=== PATIENT | female | born 1950 | race Caucasian/White ===

== ENCOUNTER 2020-01-31 15:30 | IRF | payer MEDICARE, OTHER, SELFPAY ==
--- NOTE | ~2020-01-31 | XR_ITS ---
EXAMINATION: XR chest 1V portable DATE: 02/10/2020 05:58 INDICATION: Pneumonia TECHNIQUE: frontal view of the chest was obtained. COMPARISON: Chest radiograph dated 02/05/2020 FINDINGS: Persistent opacities in the bilateral lower lung zones with left retrocardiac consolidation. Blunting at the costophrenic angles. No pulmonary edema or pneumothorax. Small calcified nodule in the left l ower lung zone and calcified left hilar lymph nodes consistent with old granulomatous disease. The ca rdiomediastinal silhouette is normal. Midline skin philip at the upper abdomen. IMPRESSION: 1. Unchanged opacities in the bilateral lower lung zones consistent with small bilateral pleural effu sions and associated basilar atelectasis and/or pneumonia. Reviewed, dictated and finalized at location A. PROOF DOOR MAKER IMPRESSION: 1. Unchanged opacities in the bilateral lower lung zones consistent with small bilateral pleural effusions and associated basilar atelectasis and/or pneumonia .
--- NOTE | ~2020-01-31 | XR_ITS ---
XR chest 1V portable 02/15/2020 06:17 Indication: Pneumonia. Dyspnea. Procedure: AP portable chest Comparison: 02/10/2020 and 02/05/2020 Findings: Heart size normal. Improving bibasilar airspace disease. Small residual pleural effusions. No pneumothorax. Calcified granulomas left lower lung. No acute osseous abnormality. Impression: 1: Improving bibasilar airspace disease which may represent resolving pneumonia and/or atelectasis. 2: Small pleural effusions. Reviewed, dictated and finalized at location A. BASIS Impression: 1: Improving bibasilar airspace disease which may represent resolving pneumonia and/or atelectasis. 2: Small pleural effusions.
--- NOTE | ~2020-01-31 | US_ITS ---
EXAMINATION: US arterial duplex [facility] DATE: 02/09/2020 10:16 INDICATION: [place] feet TECHNIQUE: Multiple grayscale and Doppler ultrasound images of the arteries of the bilateral lower li mbs were obtained. COMPARISON: None FINDINGS: Triphasic waveforms at the right common femoral, superficial femoral and posterior tibial and dorsali s pedis arteries and biphasic waveforms at the right profunda femoral and popliteal arteries with radha sk systolic upstrokes throughout. Triphasic waveforms at the left common femoral, superficial femoral , profunda femoral, posterior tibial and dorsalis pedis arteries and biphasic waveforms in the left p opliteal artery with brisk systolic upstrokes throughout. No significant stenosis evident on the prov ided grayscale images. Cardiac arrhythmias present. IMPRESSION: 1. No significant arterial occlusive disease with triphasic waveforms with brisk systolic upstrokes i n the posterior tibial and dorsalis pedis arteries at the bilateral lower legs. 2. Cardiac arrhythmias present. Correlate with EKG . Reviewed, dictated and finalized at location A. M PLANT OPERATOR IMPRESSION: 1. No significant arterial occlusive disease with triphasic waveforms with bris k systolic upstrokes in the posterior tibial and dorsalis pedis arteries at the bilateral lower legs. 2. Cardiac arrhythmias present. Correlate with EKG .
--- NOTE | ~2020-01-31 | NM_ITS ---
EXAMINATION: NM renal flow and function DATE: 02/12/2020 12:23 INDICATION: Acute kidney injury. TECHNIQUE: 6.34 mCi Tc-99m MAG3 was administered IV. The patient was scanned in the supine position. A posterior abdominal radionuclide angiogram was obtained. A subsequent time course of static images of the kidneys, ureters, and bladder was obtained. COMPARISON: Ultrasound 02/11/2020 FINDINGS: The posterior abdominal radionuclide angiogram and sequential static images show normal siz e, position, and morphology of the kidneys. Peak renal parenchymal uptake was 29 min in right kidney and 26 min in left kidney (normal peak 3-5 minutes), consistent with decreased renal function. The r elative early renal uptake was 50% on the right and 50% on the left (<40% is abnormal). No abnormali ties of the ureters or bladder are seen. T1/2 for clearance of activity from the right kidney and proximal collecting system could not be calc ulated. T1/2 for clearance of activity from the left kidney and proximal collecting system could not be calcu lated. IMPRESSION: 1. Symmetric decreased bilateral kidney function. Reviewed, dictated and finalized at location A. OPERATOR
--- NOTE | ~2020-01-31 | XR_ITS ---
XR chest 2V DATE: 02/05/2020 13:30 INDICATION: Fever TECHNIQUE: AP and lateral views COMPARISON: None FINDINGS: Heart size is within normal range. Is aortic calcification. No hilar or mediastinal enlarge ment. There are bilateral lower lung infiltrates and/or atelectasis and bilateral small pleural effusions. Rojelio overlie the upper abdomen to left of midline, as well as some surgical clips. Diffuse osteopenia. IMPRESSION: Bilateral lower lung infiltrate and/or atelectasis and small bilateral pleural effusions Reviewed, dictated and finalized at location A. E MACHINE OPERATOR IMPRESSION: Bilateral lower lung infiltrate and/or atelectasis and small bilate ral pleural effusions
--- NOTE | ~2020-01-31 | US_ITS ---
EXAMINATION: US renal BI EXAM DATE: 02/11/2020 17:36 INDICATION: Elevated creatinine. TECHNIQUE: Multiple grayscale and Doppler images of the kidneys were obtained (by a technologist who performed the scan) and subsequently reviewed. There is no prior study for comparison. FINDINGS: Right kidney: There is normal contour and increased echogenicity. It measures 12.5 x 5.4 x 6.4 centi meters. There are no focal renal lesions identified. There is no hydronephrosis. Left kidney: There is normal contour and increased echogenicity. It measures 9.2 x 4.4 x 4.3 centime ters. There is an anechoic lesion measuring 2.8 cm maximally, consistent with cyst. There is no hyd ronephrosis. Bladder unremarkable. IMPRESSION: 1. Echogenic kidneys consistent with medical renal disease. 2. No hydronephrosis. Reviewed, dictated and finalized at location A. ER TENDER HELPER
--- NOTE | 2020-01-31 15:58 | ADMGEN ---
This patient, Bhakti Jones, [facility]. Patient/family oriented to hospital policies and general routines including ID bracelet, bed and alarms, visiting hours, pain management, procedures, bathroom and other care routines, personal items, smoking policy, room service/diet, and visiting hours. Information on how to activate the Rapid Response Team has been discussed. Patient/Family are encouraged to report perceived risks to care and to ask questions if they do not understand what they are told or what they should do. was transported via [facility] ambulance, on 1.5L O2. ems stated V/S stable, report was not called prior to arrival. this nurse called hospital for report prior to removing patient from stretcher. Patient is alert and oriented.
[2020-01-31 16:41] VITALS: BP 122/71; PULSE 84; RESP 20; TEMP 37.4; O2SAT 96; BMI 22.4
--- NOTE | 2020-01-31 17:54 | PC.NURSE ---
CALLED DR. MARTINEZ AND LET HIM KNOW NEW PATIENT ARRIVAL, HE OK'D TO D/C JOSE AND GIVE MELATONIN 8MG EVERY HS FOR SLEEP O/W CONTINUE ALL ORDERS
[2020-01-31 18:00] VITALS: PULSE 84; RESP 20; O2SAT 96
[2020-01-31 20:00] VITALS: PULSE 98; RESP 18; O2SAT 93
[2020-01-31 21:47] VITALS: PULSE 68
[2020-01-31] MEDS: METOPROLOL TARTRATE 25 MG TABLET PO (21:47)
[2020-01-31] MEDS: SIMVASTATIN 10 MG TABLET PO (21:47)
[2020-01-31] MEDS: oxyCODONE HCL (*CRX) 5 MG TAB IR PO (21:54)
[2020-01-31] MEDS: MELATONIN 5 MG TABLET PO (21:54)
[2020-01-31] MEDS: MELATONIN 3 MG TABLET PO (21:54)
[2020-01-31 22:00] VITALS: BP 129/55; PULSE 98; RESP 18; TEMP 37.7; O2SAT 93
[2020-01-31] MEDS: DIPHENOXYLATE/ATROPINE (*CRX) 2.5 MG TABLET 2.5 TABLET PO (23:21)
[2020-01-31] MEDS: PSYLLIUM SUGAR FREE POWDER PACKET 1 PACKET PO (23:26)
[2020-02-01 04:48] VITALS: BP 125/55; PULSE 91; RESP 18; TEMP 37.3; O2SAT 93
[2020-02-01 05:18] LABS: Hematocrit 34.3 % (37.0-47.0); Hemoglobin 11.2 g/dL (12.0-15.0); Mean Corpuscular HGB Conc 32.7 g/dl (32-36); Mean Corpuscular Hemoglobin 28.6 pg (26-34); Mean Corpuscular Volume 87.7 fl (80-100); Red Blood Count 3.91 M/mm3 (4.2-5.4); Red Cell Distribution Width 15.8 % (11.5-14.5); White Blood Count 11.9 K/mm3 (4.5-10.0)
[2020-02-01 05:32] LABS: Anion Gap 1 mmol/L (8-16); Blood Urea Nitrogen 17 mg/dL (7-17); Calcium 7.2 mg/dL (8.4-10.2); Carbon Dioxide 27 mmol/L (22-30); Chloride 105 mmol/L (98-107); Estimated CRCL calculation 77 ml/min; Estimated Glomerular Filt Rate > 60; Glucose 115 mg/dL (65-105); Potassium 3.7 mmol/L (3.4-5.0); Sodium 133 mmol/L (137-145)
[2020-02-01 05:58] LABS: Band Neutrophils Percent 3 % (0-6); Eosinophils Absolute Manual 0.11 K/mm3 (0.02-0.5); Eosinophils Percent Manual 1 % (0-4); Large Platelets Present; Lymphocytes Absolute Manual 2.49 K/mm3 (1.1-4.5); Monocytes Absolute Manual 1.42 K/mm3 (0.1-0.90); Monocytes Percent Manual 12 % (3-9); Neutrophils Absolute Manual 7.85 K/mm3 (1.7-7.2); Neutrophils Percent Manual 63 % (46-73); Nucleated Red Blood Cells 3 %; Platelet Clumps Present; Platelet Estimate Adequate (Adequate); Total Cells Counted 100
[2020-02-01 05:59] LABS: Hypochromasia 1+ (NORMAL); Ovalocytes 1+ (NORMAL)
[2020-02-01] MEDS: DIPHENOXYLATE/ATROPINE (*CRX) 2.5 MG TABLET 1 TABLET PO ×4 (06:16→23:59)
[2020-02-01 09:38] VITALS: PULSE 91
[2020-02-01] MEDS: METOPROLOL TARTRATE 25 MG TABLET PO ×2 (09:38→20:13)
[2020-02-01] MEDS: amLODIPine BESYLATE 5 MG TABLET PO (09:39)
[2020-02-01] MEDS: ESCITALOPRAM OXALATE 10 MG TABLET PO (09:39)
[2020-02-01] MEDS: CLOPIDOGREL BISULFATE 75 MG TABLET PO (09:39)
[2020-02-01] MEDS: FLUTICASONE PROPIONATE 0.05% NA SPR 16 GM BTL (*BKC) 2 SPRAY NASAL (09:39)
[2020-02-01] MEDS: PSYLLIUM SUGAR FREE POWDER PACKET 1 PACKET PO ×2 (09:40→20:14)
[2020-02-01] MEDS: LOPERAMIDE HCL 2 MG CAPSULE 4 MG PO ×3 (09:43→17:29)
--- NOTE | 2020-02-01 11:50 | PCSTNOTE ---
Pt was seen by ST to assess communication & cognitive-linguistic function. Overall, upon completion of evaluations, pt was found to present with functional speech/language & cognitive skills. Pt was also observed drinking liquids via straw during the evaluation without any overt s/s of aspiration. Given the normal/functional evaluation outcomes, no further speech therapy is recommended at this time.
--- NOTE | 2020-02-01 12:49 | WPDREHABHP ---
H&P: HPI History of Present Illness Date/Time: 02/01/20 12:49 HISTORY OF PRESENT ILLNESS: The patient's primary rehab impairment category is Cardiac The etiologic diagnosis is abdominal aortic aneurysm I saw this patient [id number] on February 01, 2020 at 11:30 a.m. The patient is a 69 years old right-handed female with a past medical history of hypertension, hyperlipidemia, peripheral artery disease, irritable bowel syndrome, and depression who presented to a local hospital on January 22, 2020 via EMS with severe bilateral lumbar back pain, radiating to her abdomen with abrupt onset around 3:00 a.m.. The patient was transferred to [facility] via helicopter after CTA demonstrated are ruptured abdominal aortic aneurysm with [id number] read 2 peritoneal hematoma. Patient was given 1unit of packed RBCs and 2L of fluids and 2L of fluid. The patient was taken emergently to the operating room for an open aortic aneurysm repair. MTP activated and the patient received a total of 15units of packed RBCs, 5units of platelets, 12units of fresh frozen plasma, and 4units of cryo case. 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 There was also poor distal perfusion requiring bilateral eye iliac stents. The patient's abdomen was packed and temporarily closed she was admitted to ICU with an open abdomen with abthera vac, intubated and sedated, and an insulin drops. Of note within an hour of being in ICU the patient had a blood bowel movement and 1L of Sanguinous VAC output. On January 24, 2020 the patient returned to the OR for re- exploratory laparotomy and closer with Dr.deacon Rodriguez. Her wound VAC was removed on January 27, 2020. During her hospitalization the patient has experience acute postoperative pain, acute blood loss anemia, hemorrhagic shock, elevated lactate, hypertension, acute respiratory failure, GI bleed, hypocalcemia, acute kidney injury, and leukocytosis. The patient denies pain currently and does have DR and oral analgesics, the patient is currently hemodynamically stable, hemorrhagic shock, elevated lactate, acute kidney injury, and acute respiratory failure have all resolved. The patient's hypertension is controlled and there have been no more issues with a GI bleed. Leukocytosis was likely reactive. Her hypocalcemia is being monitored and repleted as necessary. Her drain was removed on January 30, 2020. She will discharge to rehab on subcutaneous heparin for DVT prophylaxis and will discharge upon discharge from rehab. COVID: The patient has not traveled outside the [place] or had contact with someone who is ill that is travel outside the [place] in the past 21 days. The patient has not traveled to an area of the [place] or had contact with someone who is ill that has traveled outside the [place] in the past 21 days. The patient has not traveled to an area of the [place] there is experiencing known transmission of the Coronavirus and has not had close personal contact with anyone that has. The patient does not have a fever Therapy was initiated at the acute care facility and the patient transferred to us from [facility] on January 31, 2020 FALLS OR SURGERIES: the patient has had a major surgery in the last 100 days( January 22, 2020 open abdominal aortic aneurysm repair, January 24, 2020 exploratory laparotomy) PAST MEDICAL HISTORY: abdominal aortic aneurysm, colon polyp, hyperlipidemia, hypertension, peripheral artery disease, irritable bowel syndrome, depression. PAST SURGICAL HISTORY: Colonoscopy SOCIAL HISTORY: the patient lives with her , Kelvin, in a 1 level home with 2 steps to enter. The patient was completely independent prior to with no assistive device. The patient's was present for interview and is able to assist patient following rehabilitation if necessary. . Former smoker. No alcohol or drug use. FAMILY HISTORY: Hypertension PRIOR LEVEL OF FUNC
[2020-02-01 14:00] VITALS: BP 113/55; PULSE 88; RESP 18; TEMP 37; O2SAT 97
[2020-02-01 16:54] VITALS: O2SAT 97
[2020-02-01] MEDS: MECLIZINE HCL 25 MG TABLET PO (17:29)
[2020-02-01] MEDS: MELATONIN 5 MG TABLET PO (20:12)
[2020-02-01 20:13] VITALS: PULSE 95
[2020-02-01] MEDS: SIMVASTATIN 10 MG TABLET PO (20:13)
[2020-02-01] MEDS: MELATONIN 3 MG TABLET PO (20:13)
[2020-02-01 20:59] VITALS: BP 130/49; PULSE 94; RESP 20; TEMP 37.7; O2SAT 99
[2020-02-01] MEDS: ACETAMINOPHEN 500 MG TABLET 1000 MG PO (23:59)
[2020-02-02] VITALS (10 sets, daily range): BP systolic 112–125; BP diastolic 49–64; PULSE 80–94; RESP 18–20; TEMP 36.8–38.8; O2SAT 90–94; BMI 22.4
[2020-02-02] MEDS: DIPHENOXYLATE/ATROPINE (*CRX) 2.5 MG TABLET 1 TABLET PO ×3 (06:35→17:34)
[2020-02-02] MEDS: PSYLLIUM SUGAR FREE POWDER PACKET 1 PACKET PO ×2 (07:46→21:24)
[2020-02-02] MEDS: ESCITALOPRAM OXALATE 10 MG TABLET PO (09:54)
[2020-02-02] MEDS: amLODIPine BESYLATE 5 MG TABLET PO (09:54)
[2020-02-02] MEDS: METOPROLOL TARTRATE 25 MG TABLET PO ×2 (09:54→21:21)
[2020-02-02] MEDS: MECLIZINE HCL 25 MG TABLET PO ×3 (09:54→17:34)
[2020-02-02] MEDS: CLOPIDOGREL BISULFATE 75 MG TABLET PO (09:54)
[2020-02-02] MEDS: FLUTICASONE PROPIONATE 0.05% NA SPR 16 GM BTL (*BKC) 2 SPRAY NASAL (09:55)
[2020-02-02] MEDS: LOPERAMIDE HCL 2 MG CAPSULE 4 MG PO ×3 (10:37→17:34)
--- NOTE | 2020-02-02 13:37 | WPDNEURORHBP ---
Subjective Date/time seen: 02/02/20 13:37 69 years old with history of abdominal aortic aneurysm rupture in addition to ongoing comorbid condition of 1. Hypertension 2. Hyperlipidemia 3. Peripheral arterial disease 4. Irritable bowel syndrome 5. Depression has been involved in physical therapy and occupational therapy on today's visit she has no specific complaints feels somewhat weak but resting fairly well on 26/06 her WBC 11.9 with hemoglobin 11.2 N electrolytes normal. Her WBCs at other places were 14.3 now coming down to 11.9 sodium has come down from 137 to 133 but potassium and up to 3.8 still her calcium is 7.6 Review of Systems Review of Systems: All systems reviewed & are unremarkable except as noted in HPI and below Functional Status Ambulation Ability Ambulation Assistive Devices: Walker, Wheeled Exam Narrative: Exam Narrative: his awake alert operative head normocephalic his speech nor dysphasic no dysarthric heart regular lungs clear abdomen is soft nontender wound clear and neuro examination unchanged Objective Data Vital Signs Vital Signs: Vital Signs - 24 hr 02/01/20 14:00 02/01/20 16:54 02/01/20 20:13 Temperature 37.0 C Pulse Rate 88 95 Respiratory Rate 18 Blood Pressure 113/55 L Pulse Oximetry 97 97 02/01/20 20:59 02/02/20 00:04 02/02/20 00:49 Temperature 37.7 C H 38.3 C H 38.8 C H Pulse Rate 94 Respiratory Rate 20 Blood Pressure 130/49 L Pulse Oximetry 99 02/02/20 01:20 02/02/20 05:41 02/02/20 09:54 Temperature 37.6 C 36.8 C Pulse Rate 82 82 Respiratory Rate 18 Blood Pressure 119/49 L Pulse Oximetry 94 02/02/20 10:13 Temperature 36.9 C Pulse Rate 90 Respiratory Rate 18 Blood Pressure 118/64 Pulse Oximetry 93 Intake/Output Intake/Output: Intake & Output 01/30/20 01/31/20 02/01/20 02/02/20 23:59 23:59 23:59 23:59 Intake Total 220 480 240 Balance 220 480 240 Meds/Results Medications: Active Medications Generic Name Dose Route Start Last Admin Trade Name Freq PRN Reason Stop Dose Admin Acetaminophen 1,000 mg 01/31/20 16:47 02/01/20 23:59 Acetaminophen 500 Mg Tablet PO 1,000 mg Q6H PRN Administration Pain (Scale Score 4-6) Amlodipine Besylate 5 mg 02/01/20 09:00 02/02/20 09:54 Amlodipine Besylate 5 Mg Tablet PO 5 mg DAILY AMOR Administration Clopidogrel Bisulfate 75 mg 02/01/20 09:00 02/02/20 09:54 Clopidogrel Bisulfate 75 Mg Tablet PO 75 mg DAILY AMOR Administration Diphenoxylate HCl/Atropine 1 tablet 02/01/20 06:00 02/02/20 12:06 Diphenoxylate/Atropine (*Crx) 2.5 Mg Tablet PO 1 tablet Q6HR AMOR Administration Escitalopram Oxalate 10 mg 02/01/20 09:00 02/02/20 09:54 Escitalopram Oxalate 10 Mg Tablet PO 10 mg DAILY AMOR Administration Fluticasone Propionate 2 spray 02/01/20 09:00 02/02/20 09:55 Fluticasone Propionate 0.05% Na Spr 16 Gm Btl (*Bkc) NASAL 2 spray DAILY AMOR Administration Loperamide HCl 4 mg 01/31/20 17:00 02/02/20 12:06 Loperamide Hcl 2 Mg Capsule PO 4 mg TID AMOR Administration Meclizine HCl 25 mg 02/01/20 17:00 02/02/20 12:06 Meclizine Hcl 25 Mg Tablet PO 25 mg TID AMOR Administration Melatonin 5 mg 01/31/20 21:00 02/01/20 20:12 Melatonin 5 Mg Tablet PO 5 mg HS AMOR Administration Melatonin 3 mg 01/31/20 21:00 02/01/20 20:13 Melatonin 3 Mg Tablet PO 3 mg HS AMOR Administration Metoprolol Tartrate 25 mg 01/31/20 21:00 02/02/20 09:54 Metoprolol Tartrate 25 Mg Tablet PO 25 mg Q12HR AMOR Administration Oxycodone HCl 5 mg 01/31/20 16:47 01/31/20 21:54 Oxycodone Hcl (*Crx) 5 Mg Tab Ir PO 5 mg Q4H PRN Administration Pain (Scale Score 7-10) Psyllium Hydrophilic Mucilloid 1 packet 01/31/20 21:00 02/02/20 07:46 Psyllium Sugar Free Powder Packet PO 1 packet Q12HR AMOR Administration Simvastatin 10 mg 01/31/20 21:00 02/01/20 20:13 Simvastatin 10 Mg Tablet PO 10 mg HS AMOR
--- NOTE | 2020-02-02 17:25 | RPD ---
INDIVIDUALIZED PLAN OF CARE FOR Bhakti Jones Brief Synthesis of Pre-Admission Screen, Post-Admission Evaluation and Therapy Evaluations: The patient presents to rehab with an abdominal aortic aneurysm. Comorbidities include: Acute respiratory failure, acute kidney injury, anemia, depression, GI bleed, HLD, HTN, s/p splenectomy, IBS, incontinence, lactic acidosis, leukocytosis hypocalcemia, PAD, weakness. The patient requires physician services for medical oversight, management of post op complications in the setting of comorbidities, and pain management. The patient requires nursing services for anticoagulation therapy, DVT prophylaxis, infection protection, medication management and education, pressure relief, and wound care. Deficits include:ADLs, Balance, Endurance, Mobility, Pain Management, ROM, Safety, Strength, Transfers Credit Support Counselor/Case Management for: Discharge Planning and Patient/Family Counseling Physical Therapy: 5 days per week for 90 minutes per day. Treatments may include: Therapeutic Exercise, Gait Training, Neuromuscular Re-education, Transfer Training, Community Reintegration, Bed Mobility, Patient/Family Education, Wheelchair Mobility Group Therapy/Concurrent Therapy Rationales: -Improve attention span during functional activities in a distracted environment. -Enhance problem solving and/or adequate judgment skills during functional activities in a distracted environment. -Promote increased safety awareness in a distracted environment to reduce fall risk with functional tasks, transfers, and ambulation to allow a more safe, self-sufficient return to the home environment. -Improve dynamic balance skills to promote safety and independence with functional activities in a distracted environment for maximum gain. Occupational Therapy: 5 days per week for 90 minutes per day. Treatments may include: Therapeutic Exercise, Therapeutic Activity, Cognitive Training, Self-Care Transfer Training, Community Reintegration, Home Management, Patient/Family Education, Wheelchair Mobility Training, Energy Conservation Training Group Therapy/Concurrent Therapy Rationales: -Allow therapist to observe and teach generalization and carry-over of skills learned in individual therapy. -Enhance problem solving and sequencing skills during therapeutic activities in a distracted environment. -Promote increased safety awareness in a realistic setting to reduce fall risk with functional tasks due to visual and verbal distractions. -Increase functional level with ADLs, ADL transfers and use of adaptive equipment through therapeutic activities with others while promoting safety to allow a more safe, self-sufficient return home. Medical Prognosis: Good Anticipated Length of Stay: 12 days Rehab Goals: Eating Goal: 06-Independent Oral Hygiene Goal: 06-Independent Toileting Hygiene Goal: 06-Independent Shower/Bathe Self Goal: 06-Independent Upper Body Dressing Goal: 06-Independent Lower Body Dressing Goal: 06-Independent Putting On/Taking Off Footwear Goal: 06-Independent Rolling Left and Right Goal: 06-Independent Sit to Lying Goal: 06-Independent Lying to Sitting on Side of Bed Goal: 06-Independent Sit to Stand Goal: 06-Independent Chair/[id number] Transfer Goal: 06-Independent Toilet Transfer Goal: 06-Independent Car Transfer Goal: 06-Independent Walk 10' Goal: 06-Independent Walk 50' with Two Turns Goal: 06-Independent Walk 150' Goal: 06-Independent Walk 10' on Uneven Surface Goal: 06-Independent 1 Step (Curb) Goal: 06-Independent 4 Steps Goal: 06-Independent 12 Steps Goal Score: 06-Independent Picking Up Object Goal: 06-Independent Wheel 50' with Two Turns Score: 06-Independent Wheel 150' Goal: 06-Independent Anticipated discharge destination: Home
[2020-02-02] MEDS: SIMVASTATIN 10 MG TABLET PO (21:21)
[2020-02-02] MEDS: MELATONIN 3 MG TABLET PO (21:24)
[2020-02-02] MEDS: MELATONIN 5 MG TABLET PO (21:24)
[2020-02-03] VITALS (9 sets, daily range): BP systolic 95–132; BP diastolic 46–69; PULSE 82–114; RESP 17–20; TEMP 36.6–38; O2SAT 91–94
[2020-02-03] MEDS: DIPHENOXYLATE/ATROPINE (*CRX) 2.5 MG TABLET 1 TABLET PO ×4 (00:02→17:35)
[2020-02-03] MEDS: PSYLLIUM SUGAR FREE POWDER PACKET 1 PACKET PO ×2 (07:33→21:04)
[2020-02-03] MEDS: CLOPIDOGREL BISULFATE 75 MG TABLET PO (09:52)
[2020-02-03] MEDS: METOPROLOL TARTRATE 25 MG TABLET PO ×2 (09:52→21:04)
[2020-02-03] MEDS: MECLIZINE HCL 25 MG TABLET PO ×3 (09:53→17:35)
[2020-02-03] MEDS: amLODIPine BESYLATE 5 MG TABLET PO (09:54)
[2020-02-03] MEDS: ESCITALOPRAM OXALATE 10 MG TABLET PO (09:54)
[2020-02-03] MEDS: FLUTICASONE PROPIONATE 0.05% NA SPR 16 GM BTL (*BKC) 2 SPRAY NASAL (09:54)
[2020-02-03] MEDS: ACETAMINOPHEN 500 MG TABLET 1000 MG PO (09:58)
[2020-02-03] MEDS: LOPERAMIDE HCL 2 MG CAPSULE 4 MG PO ×3 (09:59→17:35)
[2020-02-03 14:46] LABS: Basophils Absolute Auto 0.1 K/mm3 (0.0-0.1); Basophils Percent Auto 0.4 % (0.2-1.2); Eosinophils Absolute Auto 0.1 K/mm3 (0-0.3); Eosinophils Percent Auto 0.6 % (0-4.4); Hematocrit 35.3 % (37.0-47.0); Hemoglobin 11.8 g/dL (12.0-15.0); Immature Granulocyte Absolute 0.53 K/mm3 (0.00-0.031); Immature Granulocyte Percent A 4.6 % (0-0.5); Lymphocytes Absolute Auto 0.79 K/mm3 (0.9-3.2); Lymphocytes Percent Auto 6.9 % (18.3-44.2); Mean Corpuscular HGB Conc 33.4 g/dl (32-36); Mean Corpuscular Hemoglobin 29.4 pg (26-34); Mean Platelet Volume 9.9 fl (7.4-10.4); Monocytes Absolute Auto 1.1 K/mm3 (0.1-0.6); Monocytes Percent Auto 9.8 % (2.6-8.5); Neutrophils Percent Auto 77.7 % (45.5-73.1); Nucleated Red Blood Cells Absolute Auto 0.1 K/mm3 (0.0-0.012); Nucleated Red Blood Cells Perc 0.5 % (0.0-0.2); Platelet Count Result 606 k/mm3 (150-375); Red Blood Count 4.01 M/mm3 (4.2-5.4); Red Cell Distribution Width 15.6 % (11.5-14.5); White Blood Count 11.5 K/mm3 (4.5-10.0)
[2020-02-03 14:57] LABS: Potassium 3.5 mmol/L (3.4-5.0)
[2020-02-03 14:59] LABS: Alanine Aminotransferase 21 U/L (4-35); Albumin Level 2.2 g/dL (3.5-5.1); Alkaline Phosphatase 138 U/L (38-126); Anion Gap 4 mmol/L (8-16); Aspartate Amino Transferase 33 U/L (14-36); Bilirubin,Total 1.2 mg/dL (0.2-1.3); Blood Urea Nitrogen 15 mg/dL (7-17); Calcium 7.6 mg/dL (8.4-10.2); Carbon Dioxide 26 mmol/L (22-30); Chloride 101 mmol/L (98-107); Estimated CRCL calculation 66 ml/min; Estimated Glomerular Filt Rate > 60; Glucose 115 mg/dL (65-105); Sodium 131 mmol/L (137-145)
[2020-02-03] MEDS: MELATONIN 3 MG TABLET PO (21:04)
[2020-02-03] MEDS: MELATONIN 5 MG TABLET PO (21:04)
[2020-02-03] MEDS: SIMVASTATIN 10 MG TABLET PO (21:05)
[2020-02-04] MEDS: DIPHENOXYLATE/ATROPINE (*CRX) 2.5 MG TABLET 1 TABLET PO ×4 (00:12→17:17)
[2020-02-04 06:00] VITALS: BP 134/60; PULSE 99; RESP 18; TEMP 36.6; O2SAT 91
[2020-02-04] MEDS: PSYLLIUM SUGAR FREE POWDER PACKET 1 PACKET PO ×2 (06:06→20:27)
[2020-02-04] MEDS: ESCITALOPRAM OXALATE 10 MG TABLET PO (09:36)
[2020-02-04] MEDS: CLOPIDOGREL BISULFATE 75 MG TABLET PO (09:36)
[2020-02-04] MEDS: METOPROLOL TARTRATE 25 MG TABLET PO ×2 (09:37→20:27)
[2020-02-04] MEDS: MECLIZINE HCL 25 MG TABLET PO ×3 (09:37→17:17)
[2020-02-04] MEDS: amLODIPine BESYLATE 5 MG TABLET PO (09:38)
[2020-02-04] MEDS: FLUTICASONE PROPIONATE 0.05% NA SPR 16 GM BTL (*BKC) 2 SPRAY NASAL (09:38)
--- NOTE | 2020-02-04 09:49 | WPDNEURORHBP ---
Subjective Date/time seen: 02/04/20 09:49 69 years old with history of abdominal aortic aneurysm rupture and surgery in addition to ongoing comorbid conditions her temp today is 100.8 urine cultures pending she is not eating very well will talk to the family and start her on Megace she is already covered for the depression with the site a low prime 10 mg daily Review of Systems Review of Systems: All systems reviewed & are unremarkable except as noted in HPI and below Functional Status Ambulation Ability Ambulation Assistive Devices: Walker, Wheeled Exam Narrative: Exam Narrative: awake alert cooperative communicative has no specific complaints but obviously as mentioned before she is not eating very well the cranial examination is normal motor examination revealed no focal motor deficit heart regular lungs clear with no crepitations abdomen is soft nontender Objective Data Vital Signs Vital Signs: Vital Signs - 24 hr 02/03/20 09:52 02/03/20 10:00 02/03/20 13:45 Temperature 38.0 C H 36.9 C Pulse Rate 98 114 H 85 Respiratory Rate 18 Blood Pressure 127/69 95/46 L Pulse Oximetry 91 92 02/03/20 14:00 02/03/20 15:38 02/03/20 21:04 Temperature 36.6 C Pulse Rate 82 84 84 Respiratory Rate 17 Blood Pressure 96/52 L Pulse Oximetry 92 94 02/03/20 21:18 02/04/20 06:00 Temperature 37.2 C 36.6 C Pulse Rate 99 99 Respiratory Rate 20 18 Blood Pressure 127/50 L 134/60 Pulse Oximetry 91 91 Intake/Output Intake/Output: Intake & Output 02/01/20 02/02/20 02/03/20 02/04/20 23:59 23:59 23:59 23:59 Intake Total 480 360 100 240 Balance 480 360 100 240 Meds/Results Medications: Active Medications Generic Name Dose Route Start Last Admin Trade Name Freq PRN Reason Stop Dose Admin Acetaminophen 1,000 mg 01/31/20 16:47 02/03/20 09:58 Acetaminophen 500 Mg Tablet PO 1,000 mg Q6H PRN Administration Pain (Scale Score 4-6) Amlodipine Besylate 5 mg 02/01/20 09:00 02/04/20 09:38 Amlodipine Besylate 5 Mg Tablet PO 5 mg DAILY AMOR Administration Clopidogrel Bisulfate 75 mg 02/01/20 09:00 02/04/20 09:36 Clopidogrel Bisulfate 75 Mg Tablet PO 75 mg DAILY AMOR Administration Diphenoxylate HCl/Atropine 1 tablet 02/01/20 06:00 02/04/20 06:06 Diphenoxylate/Atropine (*Crx) 2.5 Mg Tablet PO 1 tablet Q6HR AMOR Administration Escitalopram Oxalate 10 mg 02/01/20 09:00 02/04/20 09:36 Escitalopram Oxalate 10 Mg Tablet PO 10 mg DAILY AMOR Administration Fluticasone Propionate 2 spray 02/01/20 09:00 02/04/20 09:38 Fluticasone Propionate 0.05% Na Spr 16 Gm Btl (*Bkc) NASAL 2 spray DAILY AMOR Administration Loperamide HCl 4 mg 01/31/20 17:00 02/03/20 17:35 Loperamide Hcl 2 Mg Capsule PO 4 mg TID AMOR Administration Meclizine HCl 25 mg 02/01/20 17:00 02/04/20 09:37 Meclizine Hcl 25 Mg Tablet PO 25 mg TID AMOR Administration Melatonin 5 mg 01/31/20 21:00 02/03/20 21:04 Melatonin 5 Mg Tablet PO 5 mg HS AMOR Administration Melatonin 3 mg 01/31/20 21:00 02/03/20 21:04 Melatonin 3 Mg Tablet PO 3 mg HS AMOR Administration Metoprolol Tartrate 25 mg 01/31/20 21:00 02/04/20 09:37 Metoprolol Tartrate 25 Mg Tablet PO 25 mg Q12HR AMOR Administration Oxycodone HCl 5 mg 01/31/20 16:47 01/31/20 21:54 Oxycodone Hcl (*Crx) 5 Mg Tab Ir PO 5 mg Q4H PRN Administration Pain (Scale Score 7-10) Psyllium Hydrophilic Mucilloid 1 packet 01/31/20 21:00 02/04/20 06:06 Psyllium Sugar Free Powder Packet PO 1 packet Q12HR AMOR Administration Simvastatin 10 mg 01/31/20 21:00 02/03/20 21:05 Simvastatin 10 Mg Tablet PO 10 mg HS AMOR Administration Labs Labs: Laboratory Results - last 24 hr 02/03/20 02/03/20 14:37 14:37 WBC 11.5 H RBC 4.01 L Hgb 11.8 L Hct 35.3 L MCV 88.0 MCH 29.4 MCHC 33.4 RDW 15.6 H Plt Count 606 H MPV 9.9 Immature Gran % (Auto) 4.6 H Neut
[2020-02-04] MEDS: LOPERAMIDE HCL 2 MG CAPSULE 4 MG PO ×3 (09:51→17:17)
--- NOTE | 2020-02-04 13:09 | PCPTNOTE ---
Bhakti Jones was evaluated for a wheeled walker on 02/04/2020 by this physical therapist. The wheeled walker will resolve patient's mobility limitations and will be used for ADL's within the home. The patient can safely use the wheeled walker. ?The wheeled walker will resolve the patient?s mobility deficits, including decreased balance, strength, and endurance.
--- NOTE | 2020-02-04 13:55 | PCPTNOTE ---
Attempted PT treatment this afternoon. Pt unable to participate secondary to lethargy, and reports of pain. RN notified and patient returned to supine in bed. Cindy Buckner DPT
[2020-02-04 14:00] VITALS: BP 122/59; PULSE 100; RESP 20; TEMP 38.3; O2SAT 91
[2020-02-04 16:09] LABS: Add Urine Microscopic? YES; Appearance Urine Clear (Clear); Bilirubin Urine Negative (Negative); Blood Urine 2+ (Negative); Color Urine Amber (Yellow); Glucose Urine UA Negative (Negative); Ketones Urine 1+ mg/dL (Negative); Leukocyte Esterase Ur Negative LEU/UL (NEGATIVE); Mucus Urine Rare /lpf; Nitrate Urine Negative (Negative); Protein Urine 2+ mg/dL (Negative); RBC Urine 21-50 /hpf (0-2); Squamous Epithelial Cell Urine Few /hpf (Few)
[2020-02-04 20:10] VITALS: BP 109/49; PULSE 88; RESP 16; TEMP 37.5; O2SAT 92
[2020-02-04] MEDS: MELATONIN 3 MG TABLET PO (20:26)
[2020-02-04] MEDS: MELATONIN 5 MG TABLET PO (20:26)
[2020-02-04 20:27] VITALS: PULSE 88
[2020-02-04] MEDS: SIMVASTATIN 10 MG TABLET PO (20:27)
[2020-02-04 22:00] VITALS: BP 106/53; PULSE 79; RESP 20; TEMP 37.2; O2SAT 96
[2020-02-05] MEDS: DIPHENOXYLATE/ATROPINE (*CRX) 2.5 MG TABLET 1 TABLET PO ×5 (00:26→22:58)
[2020-02-05 06:00] VITALS: BP 132/53; PULSE 97; RESP 20; TEMP 37.4; O2SAT 98
[2020-02-05] MEDS: amLODIPine BESYLATE 5 MG TABLET PO (10:26)
[2020-02-05] MEDS: FLUTICASONE PROPIONATE 0.05% NA SPR 16 GM BTL (*BKC) 2 SPRAY NASAL (10:27)
[2020-02-05] MEDS: CLOPIDOGREL BISULFATE 75 MG TABLET PO (10:27)
[2020-02-05] MEDS: ESCITALOPRAM OXALATE 10 MG TABLET PO (10:27)
[2020-02-05] MEDS: ACETAMINOPHEN 500 MG TABLET 1000 MG PO (10:28)
[2020-02-05] MEDS: MECLIZINE HCL 25 MG TABLET PO ×3 (10:30→16:59)
[2020-02-05] MEDS: METOPROLOL TARTRATE 25 MG TABLET PO ×2 (10:30→22:52)
[2020-02-05] MEDS: LOPERAMIDE HCL 2 MG CAPSULE 4 MG PO ×3 (10:43→16:59)
[2020-02-05] MEDS: PSYLLIUM SUGAR FREE POWDER PACKET 1 PACKET PO ×2 (10:44→22:49)
--- NOTE | 2020-02-05 11:42 | WPDNEURORHBP ---
Subjective Date/time seen: 02/05/20 11:42 ladnikki has been admitted to rehab floor of [facility] with the history of abdominal aortic aneurysmal rupture and surgery. Yesterday she was not feeling well but today she is definitely better her case was discussed in the family meeting with all the family members available on telephone. The discharge planning is on Tuesday with instruction to have the home health physical therapy occupational therapy and nurses visit in addition she will need a wheeled walker. Review of Systems Review of Systems: All systems reviewed & are unremarkable except as noted in HPI and below Functional Status Ambulation Ability Ambulation Assistive Devices: Walker, Wheeled Exam Narrative: Exam Narrative: On examination she is awake alert cooperative in no obvious acute distress. His speech nor dysphasic no dysarthric nor dysphonic. Ear nose throat examination normal with normal and moist mucous membranes no rhinorrhea. Neck is supple. Heart regular. Lungs clear. Abdomen is soft nontender and normal bowel sounds. Neurological examination revealed no focal neurological deficit. Objective Data Vital Signs Vital Signs: Vital Signs - 24 hr 02/04/20 14:00 02/04/20 20:10 02/04/20 20:27 Temperature 38.3 C H 37.5 C Pulse Rate 100 88 88 Respiratory Rate 20 16 Blood Pressure 122/59 L 109/49 L Pulse Oximetry 91 92 02/04/20 22:00 02/05/20 06:00 Temperature 37.2 C 37.4 C Pulse Rate 79 97 Respiratory Rate 20 20 Blood Pressure 106/53 L 132/53 L Pulse Oximetry 96 98 Intake/Output Intake/Output: Intake & Output 02/02/20 02/03/20 02/04/20 02/05/20 23:59 23:59 23:59 23:59 Intake Total 360 100 480 0 Balance 360 100 480 0 Meds/Results Medications: Active Medications Generic Name Dose Route Start Last Admin Trade Name Freq PRN Reason Stop Dose Admin Acetaminophen 1,000 mg 01/31/20 16:47 02/05/20 10:28 Acetaminophen 500 Mg Tablet PO 1,000 mg Q6H PRN Administration Pain (Scale Score 4-6) Amlodipine Besylate 5 mg 02/01/20 09:00 02/05/20 10:26 Amlodipine Besylate 5 Mg Tablet PO 5 mg DAILY AMOR Administration Clopidogrel Bisulfate 75 mg 02/01/20 09:00 02/05/20 10:27 Clopidogrel Bisulfate 75 Mg Tablet PO 75 mg DAILY AMOR Administration Diphenoxylate HCl/Atropine 1 tablet 02/01/20 06:00 02/05/20 06:19 Diphenoxylate/Atropine (*Crx) 2.5 Mg Tablet PO 1 tablet Q6HR AMOR Administration Escitalopram Oxalate 10 mg 02/01/20 09:00 02/05/20 10:27 Escitalopram Oxalate 10 Mg Tablet PO 10 mg DAILY AMOR Administration Fluticasone Propionate 2 spray 02/01/20 09:00 02/05/20 10:27 Fluticasone Propionate 0.05% Na Spr 16 Gm Btl (*Bkc) NASAL 2 spray DAILY AMOR Administration Loperamide HCl 4 mg 01/31/20 17:00 02/05/20 10:43 Loperamide Hcl 2 Mg Capsule PO 4 mg TID AMOR Administration Meclizine HCl 25 mg 02/01/20 17:00 02/05/20 10:30 Meclizine Hcl 25 Mg Tablet PO 25 mg TID AMOR Administration Melatonin 5 mg 01/31/20 21:00 02/04/20 20:26 Melatonin 5 Mg Tablet PO 5 mg HS AMOR Administration Melatonin 3 mg 01/31/20 21:00 02/04/20 20:26 Melatonin 3 Mg Tablet PO 3 mg HS AMOR Administration Metoprolol Tartrate 25 mg 01/31/20 21:00 02/05/20 10:30 Metoprolol Tartrate 25 Mg Tablet PO 25 mg Q12HR AMOR Administration Oxycodone HCl 5 mg 01/31/20 16:47 01/31/20 21:54 Oxycodone Hcl (*Crx) 5 Mg Tab Ir PO 5 mg Q4H PRN Administration Pain (Scale Score 7-10) Psyllium Hydrophilic Mucilloid 1 packet 01/31/20 21:00 02/05/20 10:44 Psyllium Sugar Free Powder Packet PO 1 packet Q12HR AMOR Administration Simvastatin 10 mg 01/31/20 21:00 02/04/20 20:27 Simvastatin 10 Mg Tablet PO 10 mg HS AMOR Administration Labs Labs: Laboratory Results - last 24 hr 02/04/20 15:50 Urine Color [place] Urine Appearance Clear Urine pH 6.0 Ur Specific [place] 1.020 Urine Pr
[2020-02-05 14:00] VITALS: BP 90/46; PULSE 78; RESP 18; TEMP 36.1; O2SAT 96
--- NOTE | 2020-02-05 17:21 | PC.NURSE ---
urine culture sent via tube system
[2020-02-05 18:30] VITALS: BP 107/49
[2020-02-05 21:00] VITALS: PULSE 86; RESP 20; O2SAT 95
[2020-02-05 22:00] VITALS: BP 110/53; PULSE 91; RESP 20; TEMP 36.6; O2SAT 95
[2020-02-05] MEDS: SIMVASTATIN 10 MG TABLET PO (22:49)
[2020-02-05 22:52] VITALS: PULSE 86
[2020-02-05] MEDS: MELATONIN 3 MG TABLET PO (22:52)
[2020-02-05] MEDS: MELATONIN 5 MG TABLET PO (22:52)
[2020-02-06] VITALS (7 sets, daily range): BP systolic 98–107; BP diastolic 40–64; PULSE 78–92; RESP 20; TEMP 36.3–37.8; O2SAT 91–95
[2020-02-06] MEDS: DIPHENOXYLATE/ATROPINE (*CRX) 2.5 MG TABLET 1 TABLET PO ×2 (06:34→13:06)
[2020-02-06] MEDS: amLODIPine BESYLATE 5 MG TABLET PO (10:28)
[2020-02-06] MEDS: CLOPIDOGREL BISULFATE 75 MG TABLET PO (10:28)
[2020-02-06] MEDS: FLUTICASONE PROPIONATE 0.05% NA SPR 16 GM BTL (*BKC) 2 SPRAY NASAL (10:28)
[2020-02-06] MEDS: ESCITALOPRAM OXALATE 10 MG TABLET PO (10:28)
[2020-02-06] MEDS: MECLIZINE HCL 25 MG TABLET PO ×3 (10:29→18:10)
[2020-02-06] MEDS: METOPROLOL TARTRATE 25 MG TABLET PO ×2 (10:29→20:36)
[2020-02-06] MEDS: PSYLLIUM SUGAR FREE POWDER PACKET 1 PACKET PO (10:30)
--- NOTE | 2020-02-06 12:20 | PCDIET ---
Nutrition Follow-Up Complete: Nutrition Diagnosis: Suboptimal oral intake related to decreased appetite, early satiety as evidenced by patient statements, intakes 10-25%. Nutrition Goal: Patient to consume 50% of meals/supplements or greater. Goal in progress. Patient still consuming below 25% of meals, on average, but has been taking Ensure Clear TID. Patient unsure whether she has tried Frozen Nutritional Treat. Encouraged patient to try supplements and continue small, frequent meals. Last recorded weight is 61 kg. Recommend obtaining new weight. Bowel Motility: +BM yesterday, loose Labs Reviewed: Hgb (11.8), Hct (35.3), Cr (0.6), Na (131), Alb (2.2), Rock Ca (9.04) Meds Noted: Norvasc, Plavix, Lomotil, Antivert, Lopressor, Zocor, Metamucil Additional Notes: Surgical incisions documented; no pressure sores. Recommend continuing supplements and regular diet. Will continue to monitor with same goal. Nutrition Monitoring and Evaluation: Follow up every 5 days.
[2020-02-06] MEDS: LOPERAMIDE HCL 2 MG CAPSULE 4 MG PO (13:06)
--- NOTE | 2020-02-06 15:30 | WPDNEURORHBP ---
Subjective Date/time seen: 02/06/20 15:30 69 years old lady admitted to the rehab floor of [facility] with history of abdominal aortic aneurysmal rupture and repair she has been involved in the physical therapy and occupational therapy day before she was not feeling well blood cultures were obtained which were negative and the urine culture is pending her temperature has remained stable and so as the blood pressure Review of Systems Review of Systems: All systems reviewed & are unremarkable except as noted in HPI and below Functional Status Ambulation Ability Ability to Ambulate 10 Feet: Minimum Assistance X 1 Ambulation Assistive Devices: Walker, Wheeled Exam Narrative: Exam Narrative: she continues to be awake alert cooperative in no obvious acute distress. Speech is not dysphasic no dysarthric no dysphonic. The cranial examination is normal. Motor examination revealed no focal motor deficit. Reflexes are symmetrical but sluggish. Plantar responses are definitely downgoing though her feet somewhat discolored at the toes abdomen is soft normal bowel sounds. Objective Data Vital Signs Vital Signs: Vital Signs - 24 hr 02/05/20 18:30 02/05/20 21:00 02/05/20 22:00 Temperature 36.6 C Pulse Rate 86 91 Respiratory Rate 20 20 Blood Pressure 107/49 L 110/53 L Pulse Oximetry 95 95 02/05/20 22:52 02/06/20 05:29 02/06/20 05:45 Temperature 36.3 C L 37.0 C Pulse Rate 86 78 80 Respiratory Rate 20 20 Blood Pressure 107/49 L 102/46 L Pulse Oximetry 92 92 02/06/20 10:29 Temperature Pulse Rate 82 Respiratory Rate Blood Pressure Pulse Oximetry Intake/Output Intake/Output: Intake & Output 02/03/20 02/04/20 02/05/20 02/06/20 23:59 23:59 23:59 23:59 Intake Total 100 480 120 480 Balance 100 480 120 480 Meds/Results Medications: Active Medications Generic Name Dose Route Start Last Admin Trade Name Freq PRN Reason Stop Dose Admin Acetaminophen 1,000 mg 01/31/20 16:47 02/05/20 10:28 Acetaminophen 500 Mg Tablet PO 1,000 mg Q6H PRN Administration Pain (Scale Score 4-6) Amlodipine Besylate 5 mg 02/01/20 09:00 02/06/20 10:28 Amlodipine Besylate 5 Mg Tablet PO 5 mg DAILY AMOR Administration Clopidogrel Bisulfate 75 mg 02/01/20 09:00 02/06/20 10:28 Clopidogrel Bisulfate 75 Mg Tablet PO 75 mg DAILY AMOR Administration Diphenoxylate HCl/Atropine 1 tablet 02/01/20 06:00 02/06/20 13:06 Diphenoxylate/Atropine (*Crx) 2.5 Mg Tablet PO 1 tablet Q6HR AMOR Administration Escitalopram Oxalate 10 mg 02/01/20 09:00 02/06/20 10:28 Escitalopram Oxalate 10 Mg Tablet PO 10 mg DAILY AMOR Administration Fluticasone Propionate 2 spray 02/01/20 09:00 02/06/20 10:28 Fluticasone Propionate 0.05% Na Spr 16 Gm Btl (*Bkc) NASAL 2 spray DAILY AMOR Administration Loperamide HCl 4 mg 01/31/20 17:00 02/06/20 13:06 Loperamide Hcl 2 Mg Capsule PO 4 mg TID AMOR Administration Meclizine HCl 25 mg 02/01/20 17:00 02/06/20 13:01 Meclizine Hcl 25 Mg Tablet PO 25 mg TID AMOR Administration Melatonin 5 mg 01/31/20 21:00 02/05/20 22:52 Melatonin 5 Mg Tablet PO 5 mg HS AMOR Administration Melatonin 3 mg 01/31/20 21:00 02/05/20 22:52 Melatonin 3 Mg Tablet PO 3 mg HS AMOR Administration Metoprolol Tartrate 25 mg 01/31/20 21:00 02/06/20 10:29 Metoprolol Tartrate 25 Mg Tablet PO 25 mg Q12HR AMOR Administration Oxycodone HCl 5 mg 01/31/20 16:47 01/31/20 21:54 Oxycodone Hcl (*Crx) 5 Mg Tab Ir PO 5 mg Q4H PRN Administration Pain (Scale Score 7-10) Psyllium Hydrophilic Mucilloid 1 packet 01/31/20 21:00 02/06/20 10:30 Psyllium Sugar Free Powder Packet PO 1 packet Q12HR AMOR Administration Simvastatin 10 mg 01/31/20 21:00 02/05/20 22:49 Simvastatin 10 Mg Tablet PO 10 mg HS AMOR Administration Radiology Results: ITS Impressions Chest X-Ray 02/05/20 13:38 IMPRESSION: Bilater
--- NOTE | 2020-02-06 17:22 | PM.IMCN ---
Assessment and Plan Assessment and plan (1) Abdominal aortic aneurysm, ruptured: Code(s): I71.3 - Abdominal aortic aneurysm, ruptured Status: Acute Assessment and Plan: In rehab, recovering but had temperature in the past. (2) Hypertension: Code(s): I10 - Essential (primary) hypertension Status: Chronic Assessment and Plan: On metoprolol, Bp is controlled (3) Hyperlipidemia: Code(s): E78.5 - Hyperlipidemia, unspecified Status: Chronic Assessment and Plan: On statin (4) Irritable bowel syndrome: Code(s): K58.9 - Irritable bowel syndrome without diarrhea Status: Chronic Assessment and Plan: on loperamide (5) Pneumonia: Code(s): J18.9 - Pneumonia, unspecified organism Status: Acute Assessment and Plan: Order BC and Order IV zosyn for HAP monitor WCC awaiting UC and sensitivites in case of UTI HPI Data of Consult Consult date: 02/07/20 Requesting Physician: Brennen Mandujano MD Primary Care Provider: Yuko Little, SENIOR ECOLOGIST Consult Narrative Narrative: Bhakti Jones is a 69 year old female seen in rehab unit for abnl cxr and fever[place] [address], UA is positive UC is pending. Pt had recent rupture AAA here for rehab, feels very tired and weak, mild cough no fever today. Review of Systems Review of Systems: All systems reviewed & are unremarkable except as noted in HPI and below PMFSH Family History Family History Father Hypertension Cerebrovascular accident Mother Hypertension Social History Social History Years smoked: 25 Smoking status: Light tobacco smoker Tobacco type: cigarettes Smoking end date: 01/02/20 Alcohol intake: never Substance use: never Gender identity (if verbalized by the patient): Female Spiritual care concerns: No Meds Home Medications and Allergies Home Medications Medication Instructions Recorded Confirmed Type Metamucil Smooth Texture S/F 1 100 ml PO BID 01/31/20 01/31/20 History acetaminophen 1,000 mg PO Q6H PRN 01/31/20 01/31/20 History amlodipine [Norvasc] 5 mg PO DAILY 01/31/20 01/31/20 History clopidogrel [Plavix] 75 mg PO DAILY 01/31/20 01/31/20 History diphenoxylate-atropine [Lomotil] 5 ml PO Q6H 01/31/20 01/31/20 History escitalopram oxalate [Lexapro] 10 mg PO DAILY 01/31/20 01/31/20 History fluticasone propionate [Flonase] 2 spray INTRANASAL DAILY 01/31/20 01/31/20 History loperamide [Imodium] 4 mg PO TID 01/31/20 01/31/20 History metoprolol tartrate 25 mg PO Q12H 01/31/20 01/31/20 History oxycodone [Roxicodone] 5 mg PO Q4H PRN 01/31/20 01/31/20 History ramelteon [Rozerem] 8 mg PO HS 01/31/20 01/31/20 History simvastatin [Zocor] 10 mg PO HS 01/31/20 01/31/20 History Allergies Allergy/AdvReac Type Severity Reaction Status Date / Time sulfur dioxide Allergy Unknown Verified 03/14/13 10:12 Vital Signs Vital Signs - 24 hr 02/05/20 18:30 02/05/20 21:00 02/05/20 22:00 Temperature 36.6 C Pulse Rate 86 91 Respiratory Rate 20 20 Blood Pressure 107/49 L 110/53 L Pulse Oximetry 95 95 02/05/20 22:52 02/06/20 05:29 02/06/20 05:45 Temperature 36.3 C L 37.0 C Pulse Rate 86 78 80 Respiratory Rate 20 20 Blood Pressure 107/49 L 102/46 L Pulse Oximetry 92 92 02/06/20 10:29 02/06/20 14:00 Temperature 37.2 C Pulse Rate 82 87 Respiratory Rate 20 Blood Pressure 98/64 L Pulse Oximetry 95 Exam Const: General: well developed Nutritional Appearance: well nourished HENMT: Head: normocephalic Eyes: General: appearance normal, both eyes and all related structures Pupils: Equal, round and reactive pupils present Neck: Neck: supple Chest: Chest palpation & inspection: normal inspection of the chest Resp: Effort & Inspection: normal respiratory effort Auscultation: clear to auscul
[2020-02-06] MEDS: SODIUM CHLORIDE 0.9% IV 1,000 ML 100 ML IV CONT (19:45)
[2020-02-06] MEDS: MELATONIN 5 MG TABLET PO (20:36)
[2020-02-06] MEDS: MELATONIN 3 MG TABLET PO (20:36)
[2020-02-06] MEDS: SIMVASTATIN 10 MG TABLET PO (20:38)
[2020-02-07] VITALS (8 sets, daily range): BP systolic 118–122; BP diastolic 50–65; PULSE 77–85; RESP 20; TEMP 37.1–37.4; O2SAT 90–96
[2020-02-07 05:37] LABS: Hematocrit 31.9 % (37.0-47.0); Hemoglobin 10.4 g/dL (12.0-15.0); Mean Corpuscular HGB Conc 32.6 g/dl (32-36); Mean Corpuscular Hemoglobin 28.4 pg (26-34); Mean Corpuscular Volume 87.2 fl (80-100); Mean Platelet Volume 9.8 fl (7.4-10.4); Platelet Count Result 635 k/mm3 (150-375); Red Blood Count 3.66 M/mm3 (4.2-5.4); Red Cell Distribution Width 15.6 % (11.5-14.5); White Blood Count 9.8 K/mm3 (4.5-10.0)
[2020-02-07 05:55] LABS: Anion Gap 2 mmol/L (8-16); Blood Urea Nitrogen 12 mg/dL (7-17); Calcium 7.2 mg/dL (8.4-10.2); Carbon Dioxide 27 mmol/L (22-30); Chloride 101 mmol/L (98-107); Estimated CRCL calculation 94 ml/min; Estimated Glomerular Filt Rate > 60; Glucose 117 mg/dL (65-105); Potassium 3.4 mmol/L (3.4-5.0); Sodium 130 mmol/L (137-145)
[2020-02-07] MEDS: CLOPIDOGREL BISULFATE 75 MG TABLET PO (08:26)
[2020-02-07] MEDS: ESCITALOPRAM OXALATE 10 MG TABLET PO (08:26)
[2020-02-07] MEDS: METOPROLOL TARTRATE 25 MG TABLET PO ×2 (08:27→19:51)
[2020-02-07] MEDS: FLUTICASONE PROPIONATE 0.05% NA SPR 16 GM BTL (*BKC) 2 SPRAY NASAL (08:27)
[2020-02-07] MEDS: MECLIZINE HCL 25 MG TABLET PO ×3 (08:27→18:07)
[2020-02-07] MEDS: amLODIPine BESYLATE 5 MG TABLET PO (08:28)
[2020-02-07] MEDS: SODIUM CHLORIDE 0.9% IV 500 ML 100 ML (09:45)
[2020-02-07] MEDS: LOPERAMIDE HCL 2 MG CAPSULE 4 MG PO ×3 (10:58→18:07)
--- NOTE | 2020-02-07 11:21 | PM.IMPN ---
Progress Note: A&P Assessment and Plan (1) Abdominal aortic aneurysm, ruptured: Code(s): I71.3 - Abdominal aortic aneurysm, ruptured Status: Acute Assessment and Plan: In rehab, recovering pt is inpatient rehab until the February. (2) Hypertension: Code(s): I10 - Essential (primary) hypertension Status: Chronic Assessment and Plan: On metoprolol, Bp is controlled (3) Hyperlipidemia: Code(s): E78.5 - Hyperlipidemia, unspecified Status: Chronic Assessment and Plan: On statin (4) Irritable bowel syndrome: Code(s): K58.9 - Irritable bowel syndrome without diarrhea Status: Chronic Assessment and Plan: on loperamide (5) Pneumonia: Code(s): J18.9 - Pneumonia, unspecified organism Status: Acute Assessment and Plan: Order IV zosyn Day 2 for HAP, WCC improving awaiting UC and sensitivities in case of UTI Subjective Date/time seen: 02/07/20 11:21 Interval history: Bhakti Jones is a 69 year old female seen in rehab unit for abnl cxr and fever. cxr - bilateral infiltrates Wcc is 9000, UA is positive UC is pending. Pt had recent rupture AAA here for rehab, feels very tired and weak, mild cough no fever today. Pt is having some cold pink feet not lost her pulses. Review of Systems Review of Systems: All systems reviewed & are unremarkable except as noted in HPI and below Exam Const: General: well developed Nutritional Appearance: well nourished HENMT: Head: normocephalic Eyes: General: appearance normal, both eyes and all related structures Pupils: Equal, round and reactive pupils present Neck: Neck: supple Chest: Chest palpation & inspection: normal inspection of the chest Resp: Effort & Inspection: normal respiratory effort Auscultation: clear to auscultation bilaterally Cardio: Jugular venous distension: no JVD Rhythm: regular rhythm Heart sounds: S1 normal heart sound present and S2 normal heart sound present GI: Inspection: other (wound with dressing ) Auscultation: normal bowel sounds Skin: General skin exam: normal color and dry skin Neuro: Cranial nerves: Yes CN's II-XII intact bilaterally and Yes Equal, round and reactive pupils present Cognition (Neuro): normal cognition Speech: normal speech Motor exam (neuro): 5/5 motor strength present throughout Extrem: General: normal to inspection Psych: Appearance: grossly normal Mental Status: mental status grossly normal Objective Data Vital Signs Vital Signs: Vital Signs - 24 hr 02/06/20 14:00 02/06/20 20:00 02/06/20 20:36 Temperature 37.2 C Pulse Rate 87 86 92 Respiratory Rate 20 20 Blood Pressure 98/64 L Pulse Oximetry 95 91 02/06/20 22:00 02/07/20 01:38 02/07/20 01:42 Temperature 37.8 C H 37.4 C Pulse Rate 86 85 Respiratory Rate 20 20 Blood Pressure 100/40 L 122/55 L Pulse Oximetry 91 90 95 02/07/20 06:00 02/07/20 08:27 Temperature 37.1 C Pulse Rate 85 85 Respiratory Rate 20 Blood Pressure 118/65 Pulse Oximetry 96 Intake/Output Intake/Output: Intake & Output 02/04/20 02/05/20 02/06/20 02/07/20 23:59 23:59 23:59 23:59 Intake Total 480 120 770 50 Balance 480 120 770 50 Meds/Results Medications: Active Medications Generic Name Dose Route Start Last Admin Trade Name Freq PRN Reason Stop Dose Admin Acetaminophen 1,000 mg 01/31/20 16:47 02/05/20 10:28 Acetaminophen 500 Mg Tablet PO 1,000 mg Q6H PRN Administration Pain (Scale Score 4-6) Amlodipine Besylate 5 mg 02/01/20 09:00 02/07/20 08:28 Amlodipine Besylate 5 Mg Tablet PO 5 mg DAILY AMOR Administration Clopidogrel Bisulfate 75 mg 02/01/20 09:00 02/07/20 08:26 Clopidogrel Bisulfate 75 Mg Tablet PO 75 mg DAILY AMOR Administration Diphenoxylate HCl/Atropine 1 tablet 02/07/20 12:00 Diphenoxylate/Atropine (*Crx) 2.5 Mg Tablet PO Q6HR [facility] Escitalopram Oxalate 10 mg 02/01/20 09:00 02/07/20
--- NOTE | 2020-02-07 12:01 | WPDNEURORHBP ---
Subjective Date/time seen: 02/07/20 12:01 69 years old being treated on the rehab floor for status post abdominal aortic rupture and repair, develops the lower lungs infiltration for which medical consult has been obtained, most recent lab with WBC 9.8 hemoglobin 10.4 platelet count of 635 and low sodium of 130 renal functions normal but alkaline phos is 138 with 2+ protein in the urine, urine culture Enterococcus 10 to 49 CFU and blood cultures negative remains afebrile with blood pressure today 118/65. She has no specific complaints except that she wants to know with she should use the binder all the time or not. Her stitches who completely clean only the lower most 2 or 3 stitches is mildly red but no drainage. Review of Systems Review of Systems: All systems reviewed & are unremarkable except as noted in HPI and below Functional Status Ambulation Ability Ability to Ambulate 10 Feet: Minimum Assistance X 1 Ambulation Assistive Devices: Walker, Wheeled Exam Narrative: Exam Narrative: On examination she is awake alert communicative. No obvious signs of depression. His speech nor dysphasic not dysarthric not dysphonic the cranial nerve examination is normal. Motor examination revealed no focal motor deficit. Reflexes are sluggish. And plantars are downgoing. Both feet toes coloration is improving look pink better than when she came in. Objective Data Vital Signs Vital Signs: Vital Signs - 24 hr 02/06/20 14:00 02/06/20 20:00 02/06/20 20:36 Temperature 37.2 C Pulse Rate 87 86 92 Respiratory Rate 20 20 Blood Pressure 98/64 L Pulse Oximetry 95 91 02/06/20 22:00 02/07/20 01:38 02/07/20 01:42 Temperature 37.8 C H 37.4 C Pulse Rate 86 85 Respiratory Rate 20 20 Blood Pressure 100/40 L 122/55 L Pulse Oximetry 91 90 95 02/07/20 06:00 02/07/20 08:27 Temperature 37.1 C Pulse Rate 85 85 Respiratory Rate 20 Blood Pressure 118/65 Pulse Oximetry 96 Intake/Output Intake/Output: Intake & Output 02/04/20 02/05/20 02/06/20 02/07/20 23:59 23:59 23:59 23:59 Intake Total 480 120 770 50 Balance 480 120 770 50 Meds/Results Medications: Active Medications Generic Name Dose Route Start Last Admin Trade Name Freq PRN Reason Stop Dose Admin Acetaminophen 1,000 mg 01/31/20 16:47 02/05/20 10:28 Acetaminophen 500 Mg Tablet PO 1,000 mg Q6H PRN Administration Pain (Scale Score 4-6) Amlodipine Besylate 5 mg 02/01/20 09:00 02/07/20 08:28 Amlodipine Besylate 5 Mg Tablet PO 5 mg DAILY AMOR Administration Clopidogrel Bisulfate 75 mg 02/01/20 09:00 02/07/20 08:26 Clopidogrel Bisulfate 75 Mg Tablet PO 75 mg DAILY AMOR Administration Diphenoxylate HCl/Atropine 1 tablet 02/07/20 12:00 Diphenoxylate/Atropine (*Crx) 2.5 Mg Tablet PO Q6HR AMOR Escitalopram Oxalate 10 mg 02/01/20 09:00 02/07/20 08:26 Escitalopram Oxalate 10 Mg Tablet PO 10 mg DAILY AMOR Administration Fluticasone Propionate 2 spray 02/01/20 09:00 02/07/20 08:27 Fluticasone Propionate 0.05% Na Spr 16 Gm Btl (*Bkc) NASAL 2 spray DAILY AMOR Administration Piperacillin/Tazobactam/Dextrose 3.375 gm in 50 mls @ 100 mls/hr 02/06/20 18:00 02/07/20 07:09 Zosyn 3.375 Gm/D5w 50ml Pm IVPB 100 mls/hr Q6HR AMOR Administration Sodium Chloride 1,000 mls @ 100 mls/hr 02/06/20 17:40 02/06/20 19:45 Normal Saline Iv IV CONT 100 mls/hr .Q10H AMOR Administration Loperamide HCl 4 mg 02/07/20 10:00 02/07/20 10:58 Loperamide Hcl 2 Mg Capsule PO 4 mg TID AMOR Administration Meclizine HCl 25 mg 02/01/20 17:00 02/07/20 08:27 Meclizine Hcl 25 Mg Tablet PO 25 mg TID AMOR Administration Melatonin 5 mg 01/31/20 21:00 02/06/20 20:36 Melatonin 5 Mg Tablet PO 5 mg HS AMOR Administration Melatonin 3 mg 01/31/20 21:00 02/06/20 20:36 Melatonin 3 Mg Tablet PO 3 mg HS AMOR Administration Metoprolol Tartrate 25 mg 01/31/20 21:00 02/07/20 08:27 Met
[2020-02-07] MEDS: DIPHENOXYLATE/ATROPINE (*CRX) 2.5 MG TABLET 1 TABLET PO ×2 (13:34→18:07)
[2020-02-07] MEDS: SODIUM CHLORIDE 0.9% IV 1,000 ML 100 ML IV CONT (18:08)
[2020-02-07] MEDS: MELATONIN 3 MG TABLET PO (19:51)
[2020-02-07] MEDS: SIMVASTATIN 10 MG TABLET PO (19:51)
[2020-02-07] MEDS: MELATONIN 5 MG TABLET PO (19:51)
[2020-02-07] MEDS: PSYLLIUM SUGAR FREE POWDER PACKET 1 PACKET PO (19:52)
[2020-02-08] VITALS (7 sets, daily range): BP systolic 113–128; BP diastolic 53–67; PULSE 77–88; RESP 18–20; TEMP 36.6–36.9; O2SAT 92–94
[2020-02-08] MEDS: DIPHENOXYLATE/ATROPINE (*CRX) 2.5 MG TABLET 1 TABLET PO ×4 (00:21→17:37)
[2020-02-08] MEDS: SODIUM CHLORIDE 0.9% IV 1,000 ML 100 ML IV CONT ×2 (02:37→12:08)
[2020-02-08 05:05] LABS: Hematocrit 32.2 % (37.0-47.0); Hemoglobin 10.4 g/dL (12.0-15.0); Mean Corpuscular HGB Conc 32.3 g/dl (32-36); Mean Corpuscular Hemoglobin 28.7 pg (26-34); Mean Corpuscular Volume 88.7 fl (80-100); Red Blood Count 3.63 M/mm3 (4.2-5.4); Red Cell Distribution Width 15.7 % (11.5-14.5); White Blood Count 9.4 K/mm3 (4.5-10.0)
[2020-02-08 05:21] LABS: Anion Gap 1 mmol/L (8-16); Blood Urea Nitrogen 8 mg/dL (7-17); Calcium 7.2 mg/dL (8.4-10.2); Carbon Dioxide 26 mmol/L (22-30); Chloride 103 mmol/L (98-107); Estimated CRCL calculation 94 ml/min; Estimated Glomerular Filt Rate > 60; Glucose 112 mg/dL (65-105); Potassium 3.1 mmol/L (3.4-5.0); Sodium 130 mmol/L (137-145)
[2020-02-08 06:40] LABS: Atypical Lymphocytes Present; Band Neutrophils Percent 20 % (0-6); Lymphocytes Absolute Manual 2.44 K/mm3 (1.1-4.5); Monocytes Absolute Manual 0.56 K/mm3 (0.1-0.90); Monocytes Percent Manual 6 % (3-9); Neutrophils Absolute Manual 6.39 K/mm3 (1.7-7.2); Neutrophils Percent Manual 48 % (46-73); Nucleated Red Blood Cells 3 %; Platelet Clumps Present; Platelet Estimate Increased (Adequate); Total Cells Counted 100
[2020-02-08 06:41] LABS: Hypochromasia 2+ (NORMAL); Ovalocytes 1+ (NORMAL)
[2020-02-08] MEDS: METOPROLOL TARTRATE 25 MG TABLET PO ×2 (08:20→20:58)
[2020-02-08] MEDS: amLODIPine BESYLATE 5 MG TABLET PO (08:20)
[2020-02-08] MEDS: FLUTICASONE PROPIONATE 0.05% NA SPR 16 GM BTL (*BKC) 2 SPRAY NASAL (08:21)
[2020-02-08] MEDS: CLOPIDOGREL BISULFATE 75 MG TABLET PO (08:21)
[2020-02-08] MEDS: ESCITALOPRAM OXALATE 10 MG TABLET PO (08:21)
[2020-02-08] MEDS: MECLIZINE HCL 25 MG TABLET PO ×3 (08:22→16:12)
[2020-02-08] MEDS: LOPERAMIDE HCL 2 MG CAPSULE 4 MG PO (10:00)
--- NOTE | 2020-02-08 14:23 | WPDNEURORHBP ---
Subjective Date/time seen: 02/08/20 14:23 69 years old is status post abdominal aortic rupture and repair involving the physical therapy and occupational therapy and also being treated for the pneumonia remains afebrile with temp of 36.8? blood pressure 128/53 and offering no specific complaints though she is sleeping more Review of Systems Review of Systems: All systems reviewed & are unremarkable except as noted in HPI and below Functional Status Ambulation Ability Ability to Ambulate 10 Feet: Contact Guard Ambulation Assistive Devices: Walker, Wheeled Exam Narrative: Exam Narrative: she is awake alert follows instructions very well. Speech is not dysphasic not dysarthric. Neck is supple with no restriction. Heart regular with no murmur. Lungs clear with no rhonchi or crepitations. Abdomen is soft nontender his stitches clean. Neurological examination revealed her to have no changes in the neural neurological finding her toes are definitely more pink bilaterally and she is able to move the toes very well Objective Data Vital Signs Vital Signs: Vital Signs - 24 hr 02/07/20 19:51 02/07/20 20:00 02/07/20 22:00 Temperature 37.1 C Pulse Rate 78 77 Respiratory Rate 20 Blood Pressure 119/50 L Pulse Oximetry 96 93 02/08/20 05:26 02/08/20 09:02 02/08/20 09:40 Temperature 36.8 C Pulse Rate 77 Respiratory Rate 18 18 Blood Pressure 128/53 L Pulse Oximetry 93 92 92 Intake/Output Intake/Output: Intake & Output 02/05/20 02/06/20 02/07/20 02/08/20 23:59 23:59 23:59 23:59 Intake Total 892 794 4178 2350 Balance 759 844 0483 2350 Meds/Results Medications: Active Medications Generic Name Dose Route Start Last Admin Trade Name Freq PRN Reason Stop Dose Admin Acetaminophen 1,000 mg 01/31/20 16:47 02/05/20 10:28 Acetaminophen 500 Mg Tablet PO 1,000 mg Q6H PRN Administration Pain (Scale Score 4-6) Amlodipine Besylate 5 mg 02/01/20 09:00 02/08/20 08:20 Amlodipine Besylate 5 Mg Tablet PO 5 mg DAILY AMOR Administration Clopidogrel Bisulfate 75 mg 02/01/20 09:00 02/08/20 08:21 Clopidogrel Bisulfate 75 Mg Tablet PO 75 mg DAILY AMOR Administration Diphenoxylate HCl/Atropine 1 tablet 02/07/20 12:00 02/08/20 12:09 Diphenoxylate/Atropine (*Crx) 2.5 Mg Tablet PO 1 tablet Q6HR AMOR Administration Escitalopram Oxalate 10 mg 02/01/20 09:00 02/08/20 08:21 Escitalopram Oxalate 10 Mg Tablet PO 10 mg DAILY AMOR Administration Fluticasone Propionate 2 spray 02/01/20 09:00 02/08/20 08:21 Fluticasone Propionate 0.05% Na Spr 16 Gm Btl (*Bkc) NASAL 2 spray DAILY AMOR Administration Piperacillin/Tazobactam/Dextrose 3.375 gm in 50 mls @ 100 mls/hr 02/06/20 18:00 02/08/20 12:10 Zosyn 3.375 Gm/D5w 50ml Pm IVPB 100 mls/hr Q6HR AMOR Administration Sodium Chloride 1,000 mls @ 100 mls/hr 02/06/20 17:40 02/08/20 12:15 Normal Saline Iv IV CONT Not Given .Q10H AMOR Vancomycin HCl 1,000 mg in 250 mls @ 250 mls/hr 02/07/20 13:00 02/08/20 13:01 Vancomycin 1,000 Mg/D5w 250 Ml IVPB 250 mls/hr Q12H AMOR Administration Meclizine HCl 25 mg 02/01/20 17:00 02/08/20 12:10 Meclizine Hcl 25 Mg Tablet PO 25 mg TID AMOR Administration Melatonin 5 mg 01/31/20 21:00 02/07/20 19:51 Melatonin 5 Mg Tablet PO 5 mg HS AMOR Administration Melatonin 3 mg 01/31/20 21:00 02/07/20 19:51 Melatonin 3 Mg Tablet PO 3 mg HS AMOR Administration Metoprolol Tartrate 25 mg 01/31/20 21:00 02/08/20 08:20 Metoprolol Tartrate 25 Mg Tablet PO 25 mg Q12HR AMOR Administration Miconazole Nitrate 1 applic 02/08/20 21:00 Miconazole Nitrate 2% Cream 30 Gm Tube TOPICAL Q12HR AMOR Oxycodone HCl 5 mg 01/31/20 16:47 01/31/20 21:54 Oxycodone Hcl (*Crx) 5 Mg Tab Ir PO 5 mg Q4H PRN Administration Pain (Scale Score 7-10) Psyllium Hydrophilic Mucilloid 1 packet 01/31/20 21:00 02/08/20 08:23 Psyllium Sugar
--- NOTE | 2020-02-08 15:59 | PM.IMPN ---
Progress Note: A&P Assessment and Plan (1) Abdominal aortic aneurysm, ruptured: Code(s): I71.3 - Abdominal aortic aneurysm, ruptured Status: Acute Assessment and Plan: In rehab, recovering pt is inpatient rehab until the February. (2) Hypertension: Code(s): I10 - Essential (primary) hypertension Status: Chronic Assessment and Plan: On metoprolol, Bp is 121/54 (3) Hyperlipidemia: Code(s): E78.5 - Hyperlipidemia, unspecified Status: Chronic Assessment and Plan: On statin (4) Irritable bowel syndrome: Code(s): K58.9 - Irritable bowel syndrome without diarrhea Status: Chronic Assessment and Plan: on loperamide (5) Pneumonia: Code(s): J18.9 - Pneumonia, unspecified organism Status: Acute Assessment and Plan: Order IV zosyn Day 3 for HAP, WCC improving, Cxr ordered for TUESDAY MORNING (6) UTI (urinary tract infection): Code(s): N39.0 - Urinary tract infection, site not specified Status: Acute Assessment and Plan: UC is positive add IV vancomycin. Pt having some urinary incontinence and is post op from ruptured AAA, consult urology treat underlying UTI Subjective Date/time seen: 02/08/20 15:59 Interval history: Bhakti Jones is a 69 year old female seen in rehab unit for abnl cxr and fever. cxr - bilateral infiltrates Wcc is 9000, UA is positive UC is pending. Pt had recent rupture AAA here for rehab, feels very tired and weak, mild cough no fever today. Pt is having some cold pink feet not lost her pulses. Pt is having some urinary incontinence today. I will consult urology for this make urinary frequency due to UTI Review of Systems Review of Systems: All systems reviewed & are unremarkable except as noted in HPI and below Exam Const: General: uncomfortable and other (Down and depressed ) HENMT: Head: normocephalic Eyes: General: appearance normal, both eyes and all related structures Pupils: Equal, round and reactive pupils present Neck: Neck: supple Chest: Chest palpation & inspection: normal inspection of the chest Resp: Effort & Inspection: normal respiratory effort Auscultation: clear to auscultation bilaterally Cardio: Jugular venous distension: no JVD Rhythm: regular rhythm Heart sounds: S1 normal heart sound present and S2 normal heart sound present GI: Inspection: other (long vertical mid line wound with philip clean and dry no oozing ) Auscultation: normal bowel sounds Skin: General skin exam: normal color and dry skin Neuro: Cranial nerves: Yes CN's II-XII intact bilaterally and Yes Equal, round and reactive pupils present Cognition (Neuro): normal cognition Speech: normal speech Motor exam (neuro): 5/5 motor strength present throughout Extrem: General: normal to inspection Psych: Appearance: grossly normal Mental Status: mental status grossly normal Objective Data Vital Signs Vital Signs: Vital Signs - 24 hr 02/07/20 19:51 02/07/20 20:00 02/07/20 22:00 Temperature 37.1 C Pulse Rate 78 77 Respiratory Rate 20 Blood Pressure 119/50 L Pulse Oximetry 96 93 02/08/20 05:26 02/08/20 09:02 02/08/20 09:40 Temperature 36.8 C Pulse Rate 77 Respiratory Rate 18 18 Blood Pressure 128/53 L Pulse Oximetry 93 92 92 02/08/20 14:00 Temperature 36.6 C Pulse Rate 80 Respiratory Rate 18 Blood Pressure 121/54 L Pulse Oximetry 94 Intake/Output Intake/Output: Intake & Output 02/05/20 02/06/20 02/07/20 02/08/20 23:59 23:59 23:59 23:59 Intake Total 657 593 5054 2350 Balance 038 599 7018 2350 Meds/Results Medications: Active Medications Generic Name Dose Route Start Last Admin Trade Name Freq PRN Reason Stop Dose Admin Acetaminophen 1,000 mg 01/31/20 16:47 02/05/20 10:28 Acetaminophen 500 Mg Tablet PO 1,000 mg Q6H PRN Administration Pain (Scale Score 4-6) Amlodipine Besylate 5 mg 02/01/20 09:00 02/08/20 08:
[2020-02-08] MEDS: SACCHAROMYCES BOULARDII 250 MG CAPSULE PO (16:12)
[2020-02-08] MEDS: PSYLLIUM SUGAR FREE POWDER PACKET 1 PACKET PO (20:58)
[2020-02-08] MEDS: MELATONIN 3 MG TABLET PO (20:58)
[2020-02-08] MEDS: SIMVASTATIN 10 MG TABLET PO (20:58)
[2020-02-08] MEDS: MELATONIN 5 MG TABLET PO (20:58)
[2020-02-08] MEDS: MICONAZOLE NITRATE 2% CREAM 30 GM TUBE 1 APPLIC TOPICAL (20:59)
[2020-02-09] MEDS: DIPHENOXYLATE/ATROPINE (*CRX) 2.5 MG TABLET 1 TABLET PO ×4 (00:14→18:06)
[2020-02-09 01:28] LABS: Vancomycin Trough 7.5 ug/mL (10.0-20.0)
[2020-02-09] MEDS: ACETAMINOPHEN 500 MG TABLET 1000 MG PO (01:50)
[2020-02-09 04:32] VITALS: BP 136/62; PULSE 70; RESP 18; TEMP 36.8; O2SAT 98
[2020-02-09 08:00] VITALS: PULSE 72; RESP 18; O2SAT 95
[2020-02-09] MEDS: FLUTICASONE PROPIONATE 0.05% NA SPR 16 GM BTL (*BKC) 2 SPRAY NASAL (09:00)
[2020-02-09] MEDS: ESCITALOPRAM OXALATE 10 MG TABLET PO (09:17)
[2020-02-09] MEDS: CLOPIDOGREL BISULFATE 75 MG TABLET PO (09:17)
[2020-02-09 09:18] VITALS: PULSE 70
[2020-02-09] MEDS: MECLIZINE HCL 25 MG TABLET PO ×3 (09:18→18:05)
[2020-02-09] MEDS: amLODIPine BESYLATE 5 MG TABLET PO (09:18)
[2020-02-09] MEDS: METOPROLOL TARTRATE 25 MG TABLET PO ×2 (09:18→20:50)
[2020-02-09] MEDS: SACCHAROMYCES BOULARDII 250 MG CAPSULE PO ×3 (09:18→18:04)
[2020-02-09] MEDS: POTASSIUM CHLORIDE 20 MEQ PACKET (FOR LIQUID) PO (09:19)
[2020-02-09] MEDS: MICONAZOLE NITRATE 2% CREAM 30 GM TUBE 1 APPLIC TOPICAL ×2 (09:19→20:51)
[2020-02-09] MEDS: PSYLLIUM SUGAR FREE POWDER PACKET 1 PACKET PO ×2 (09:20→20:51)
--- NOTE | 2020-02-09 14:27 | PM.IMPN ---
Progress Note: A&P Assessment and Plan (1) Abdominal aortic aneurysm, ruptured: Code(s): I71.3 - Abdominal aortic aneurysm, ruptured Status: Acute Assessment and Plan: In rehab, recovering pt is inpatient rehab until the February.Pt wearing her abdominal binder more, continue PT/OT (2) Hypertension: Code(s): I10 - Essential (primary) hypertension Status: Chronic Assessment and Plan: On metoprolol, Bp is 121/54 (3) Hyperlipidemia: Code(s): E78.5 - Hyperlipidemia, unspecified Status: Chronic Assessment and Plan: On statin (4) Irritable bowel syndrome: Code(s): K58.9 - Irritable bowel syndrome without diarrhea Status: Chronic Assessment and Plan: on loperamide (5) Pneumonia: Code(s): J18.9 - Pneumonia, unspecified organism Status: Acute Assessment and Plan: Order IV zosyn and IV vancomycin Day 4 for HAP, WCC improving, Cxr ordered for TUESDAY MORNING, pt is on 1 liter of oxygen (6) UTI (urinary tract infection): Code(s): N39.0 - Urinary tract infection, site not specified Status: Acute Assessment and Plan: UC is positive add IV vancomycin. Pt having some urinary incontinence and is post op from ruptured AAA, consult urology treat underlying UTI Subjective Date/time seen: 02/09/20 14:27 Interval history: Bhakti Jones is a 69 year old female seen in rehab unit for abnl cxr and fever. cxr - bilateral infiltrates Wcc is 9000, UC is positive. Pt had recent rupture AAA here for rehab, feels very tired and weak, mild cough no fever today. Pt is having some cold pink feet not lost her pulses. Pt is having some urinary incontinence today. I will consult urology for this make urinary frequency due to UTI. Pt had arterial Doppler today of legs. Pt wearing her abdominal binder more. Review of Systems Review of Systems: All systems reviewed & are unremarkable except as noted in HPI and below Exam Const: General: uncomfortable and other (Down and depressed ) Nutritional Appearance: well nourished HENMT: Head: normocephalic Eyes: General: appearance normal, both eyes and all related structures Pupils: Equal, round and reactive pupils present Neck: Neck: supple Chest: Chest palpation & inspection: normal inspection of the chest Resp: Effort & Inspection: normal respiratory effort Auscultation: clear to auscultation bilaterally Cardio: Jugular venous distension: no JVD Rhythm: regular rhythm Heart sounds: S1 normal heart sound present and S2 normal heart sound present GI: Inspection: other (long vertical mid line wound with philip clean and dry no oozing ) Auscultation: normal bowel sounds Skin: General skin exam: normal color and dry skin Neuro: Cranial nerves: Yes CN's II-XII intact bilaterally and Yes Equal, round and reactive pupils present Cognition (Neuro): normal cognition Speech: normal speech Motor exam (neuro): 5/5 motor strength present throughout Extrem: General: normal to inspection Psych: Appearance: grossly normal Mental Status: mental status grossly normal Objective Data Vital Signs Vital Signs: Vital Signs - 24 hr 02/08/20 20:00 02/08/20 20:40 02/08/20 20:58 Temperature 36.9 C Pulse Rate 88 88 88 Respiratory Rate 20 20 Blood Pressure 113/67 Pulse Oximetry 93 93 02/09/20 04:32 02/09/20 09:18 Temperature 36.8 C Pulse Rate 70 70 Respiratory Rate 18 Blood Pressure 136/62 Pulse Oximetry 98 Intake/Output Intake/Output: Intake & Output 02/06/20 02/07/20 02/08/20 02/09/20 23:59 23:59 23:59 23:59 Intake Total 770 2970 3002 690 Balance 770 2970 3002 690 Meds/Results Medications: Active Medications Generic Name Dose Route Start Last Admin Trade Name Freq PRN Reason Stop Dose Admin Acetaminophen 1,000 mg 01/31/20 16:47 02/09/20 01:50 Acetaminophen 500 Mg Tablet PO 1,000 mg Q6H PRN Administration Pain (Scale Score 4-6)
--- NOTE | 2020-02-09 14:48 | PCOTNOTE ---
Pt did not receive full minutes this date due to decreased motivation to participate. During am session, patient stated, I haven't had 3 days to rest since this started. I can't do it. I'm not doing it. I can't walk. I'm too weak to even sit up. Pt declined most ADLs. Upon getting patient out of bed, patient stated, I have to go to the bathroom. Now! You're not fast enough! Patient threw self down on bed to supine stating, I'm going to make a mess! Encouraged patient to sit on bed side commode, and patient agreed to do so. Pt exhibits decreased endurance and strength having severe diarrhea and incontinence. Pt agitated and returned back to bed, refusing therapy. Patient stated, A female doctor was just here and said I'm not ready for rehab yet, so why is everyone pushing me? Explained expectations for [facility], and reviewed 3-hour rule. Pt did not receive 60 minute session as scheduled. Attempted therapy at 12:30, however patient refused stating, I really don't want to get upset. I'm not getting out of bed today. I'm tired! I'm not doing it. Returned at 13:50, and encouraged patient to participate to her tolerance. Patient cooperated until she stated, That's it. That's enough! Patient stated she would like to get out in the [place] to move around. Notified PT at this time to begin and encourage physical therapy.
[2020-02-09 15:02] VITALS: BP 102/55; PULSE 72; RESP 18; TEMP 36.6; O2SAT 95
--- NOTE | 2020-02-09 15:13 | PCPTNOTE ---
Full minutes not met this date due to patient refusal.
[2020-02-09 20:18] VITALS: BP 117/77; PULSE 88; RESP 18; TEMP 37.1; O2SAT 96
[2020-02-09 20:50] VITALS: PULSE 76
[2020-02-09] MEDS: SIMVASTATIN 10 MG TABLET PO (20:50)
[2020-02-09] MEDS: MELATONIN 5 MG TABLET PO (20:51)
[2020-02-09] MEDS: MELATONIN 3 MG TABLET PO (20:51)
[2020-02-10] MEDS: DIPHENOXYLATE/ATROPINE (*CRX) 2.5 MG TABLET 1 TABLET PO ×3 (00:28→13:11)
[2020-02-10 04:47] LABS: Hematocrit 33.2 % (37.0-47.0); Hemoglobin 11.1 g/dL (12.0-15.0); Mean Corpuscular HGB Conc 33.4 g/dl (32-36); Mean Corpuscular Hemoglobin 28.6 pg (26-34); Mean Corpuscular Volume 85.6 fl (80-100); Mean Platelet Volume 9.9 fl (7.4-10.4); Platelet Count Result 593 k/mm3 (150-375); Red Blood Count 3.88 M/mm3 (4.2-5.4); Red Cell Distribution Width 15.5 % (11.5-14.5); White Blood Count 9.4 K/mm3 (4.5-10.0)
[2020-02-10 05:00] LABS: Anion Gap 4 mmol/L (8-16); Blood Urea Nitrogen 14 mg/dL (7-17); Calcium 7.4 mg/dL (8.4-10.2); Carbon Dioxide 27 mmol/L (22-30); Chloride 101 mmol/L (98-107); Estimated CRCL calculation 35 ml/min; Estimated Glomerular Filt Rate 44; Glucose 122 mg/dL (65-105); Potassium 2.9 mmol/L (3.4-5.0); Sodium 132 mmol/L (137-145)
[2020-02-10 05:48] VITALS: BP 123/53; PULSE 88; RESP 20; TEMP 36.3; O2SAT 94
[2020-02-10] MEDS: FLUTICASONE PROPIONATE 0.05% NA SPR 16 GM BTL (*BKC) 2 SPRAY NASAL (09:52)
[2020-02-10 09:53] VITALS: PULSE 88
[2020-02-10] MEDS: CLOPIDOGREL BISULFATE 75 MG TABLET PO (09:53)
[2020-02-10] MEDS: METOPROLOL TARTRATE 25 MG TABLET PO ×2 (09:53→21:27)
[2020-02-10] MEDS: amLODIPine BESYLATE 5 MG TABLET PO (09:53)
[2020-02-10] MEDS: ESCITALOPRAM OXALATE 10 MG TABLET PO (09:53)
[2020-02-10] MEDS: MECLIZINE HCL 25 MG TABLET PO ×3 (09:53→18:02)
[2020-02-10] MEDS: POTASSIUM CHLORIDE 20 MEQ PACKET (FOR LIQUID) PO (09:53)
[2020-02-10] MEDS: MICONAZOLE NITRATE 2% CREAM 30 GM TUBE 1 APPLIC TOPICAL ×2 (09:53→21:29)
[2020-02-10] MEDS: SACCHAROMYCES BOULARDII 250 MG CAPSULE PO ×3 (09:54→18:01)
[2020-02-10 11:46] LABS: Vancomycin Trough 28.9 ug/mL (10.0-20.0)
--- NOTE | 2020-02-10 12:25 | WPDNEURORHBP ---
Subjective Date/time seen: 02/10/20 12:25 69 years old status post abdominal aortic rupture and repair in addition to ongoing history of underlying depression and at present complaint of mild discomfort, remains stable temperature 36.3? pulse 88 respiration 20 pulse ox 94% blood pressure 123/53, receiving piperacillin tazobactam and vancomycin intravenously along with the clopidogrel 75 mg daily he sight of Brink 10 mg daily recent lab on 02/09 with WBC 9.4 hemoglobin 11.1 platelet count 593 electrolytes was sodium 132 potassium 2.9 GFR 44 glucose 122 and creatinine 1.20 vanc trough level 28.9 blood cultures negative urine culture positive for Enterococcus, urologist is being controlled consulted for the urinary frequency in addition Doppler study of the lower extremities have been order. Review of Systems Review of Systems: All systems reviewed & are unremarkable except as noted in HPI and below Functional Status Ambulation Ability Ability to Ambulate 10 Feet: Contact Guard Ambulation Assistive Devices: Walker, Wheeled Exam Narrative: Exam Narrative: On examination today she is awake alert definitely looks more alert and more communicative and cooperative, his speech not dysphasic not dysarthric nor dysphonic, ear nose throat examination normal, neck is supple, heart regular, lungs clear, abdomen soft nontender, the wound is completely healthy motor examination in the upper and lower extremities is normal and symmetrical, the toes are pinkish in both feet, Objective Data Vital Signs Vital Signs: Vital Signs - 24 hr 02/09/20 15:02 02/09/20 20:18 02/09/20 20:50 Temperature 36.6 C 37.1 C Pulse Rate 72 88 76 Respiratory Rate 18 18 Blood Pressure 102/55 L 117/77 Pulse Oximetry 95 96 02/10/20 05:48 02/10/20 09:53 Temperature 36.3 C L Pulse Rate 88 88 Respiratory Rate 20 Blood Pressure 123/53 L Pulse Oximetry 94 Intake/Output Intake/Output: Intake & Output 02/07/20 02/08/20 02/09/20 02/10/20 23:59 23:59 23:59 23:59 Intake Total 2970 3002 1040 50 Balance 2970 3002 1040 50 Meds/Results Medications: Active Medications Generic Name Dose Route Start Last Admin Trade Name Freq PRN Reason Stop Dose Admin Acetaminophen 1,000 mg 01/31/20 16:47 02/09/20 01:50 Acetaminophen 500 Mg Tablet PO 1,000 mg Q6H PRN Administration Pain (Scale Score 4-6) Amlodipine Besylate 5 mg 02/01/20 09:00 02/10/20 09:53 Amlodipine Besylate 5 Mg Tablet PO 5 mg DAILY AMOR Administration Clopidogrel Bisulfate 75 mg 02/01/20 09:00 02/10/20 09:53 Clopidogrel Bisulfate 75 Mg Tablet PO 75 mg DAILY AMOR Administration Diphenoxylate HCl/Atropine 1 tablet 02/07/20 12:00 02/10/20 05:32 Diphenoxylate/Atropine (*Crx) 2.5 Mg Tablet PO 1 tablet Q6HR AMOR Administration Escitalopram Oxalate 10 mg 02/01/20 09:00 02/10/20 09:53 Escitalopram Oxalate 10 Mg Tablet PO 10 mg DAILY AMOR Administration Fluticasone Propionate 2 spray 02/01/20 09:00 02/10/20 09:52 Fluticasone Propionate 0.05% Na Spr 16 Gm Btl (*Bkc) NASAL 2 spray DAILY AMOR Administration Piperacillin/Tazobactam/Dextrose 3.375 gm in 50 mls @ 100 mls/hr 02/06/20 18:00 02/10/20 05:33 Zosyn 3.375 Gm/D5w 50ml Pm IVPB 100 mls/hr Q6HR AMOR Administration Vancomycin HCl 1,250 mg in 250 mls @ 200 mls/hr 02/09/20 12:00 02/10/20 00:27 Vancomycin 1,250 Mg/D5w 250 Ml IVPB 200 mls/hr Q12H AMOR Administration Meclizine HCl 25 mg 02/01/20 17:00 02/10/20 09:53 Meclizine Hcl 25 Mg Tablet PO 25 mg TID AMOR Administration Melatonin 5 mg 01/31/20 21:00 02/09/20 20:51 Melatonin 5 Mg Tablet PO 5 mg HS AMOR Administration Melatonin 3 mg 01/31/20 21:00 02/09/20 20:51 Melatonin 3 Mg Tablet PO 3 mg HS AMOR Administration Metoprolol Tartrate 25 mg 01/31/20 21:00 02/10/20 09:53 Metoprolol Tartrate 25 Mg Tablet PO 25 mg Q12HR AMOR Administration Miconazole Nitrate 1 applic 02/08/20
[2020-02-10] MEDS: POTASSIUM CHLORIDE 20 MEQ PACKET (FOR LIQUID) 40 MEQ PO ×2 (13:11→18:02)
[2020-02-10 14:00] VITALS: BP 108/54; PULSE 78; RESP 19; TEMP 36.8; O2SAT 97
--- NOTE | 2020-02-10 15:39 | PCPTNOTE ---
Patient did not receive full therapy minutes this date due to severe diarrhea.
--- NOTE | 2020-02-10 17:52 | PM.IMPN ---
Progress Note: A&P Assessment and Plan (1) UTI (urinary tract infection): Qualifiers: Urinary tract infection type: site unspecified Hematuria presence: without hematuria Qualified Code(s): N39.0 - Urinary tract infection, site not specified Code(s): N39.0 - Urinary tract infection, site not specified Status: Acute Assessment and Plan: Culture with entercoccus Continue vancomycin (2) Pneumonia: Qualifiers: Pneumonia type: due to unspecified organism Laterality: unspecified laterality Lung location: unspecified part of lung Qualified Code(s): J18.9 - Pneumonia, unspecified organism Code(s): J18.9 - Pneumonia, unspecified organism Status: Acute Assessment and Plan: Continue Vanc and Zosyn Supplemental oxygen down to 1.5L 1/3 CXR stable with bilat LL infiltrates vs atelectasis (3) Abdominal aortic aneurysm, ruptured: Code(s): I71.3 - Abdominal aortic aneurysm, ruptured Status: Acute Assessment and Plan: In rehab, recovering pt is inpatient rehab until the February.Pt wearing her abdominal binder more, continue PT/OT (4) Hypertension: Qualifiers: Hypertension type: unspecified Qualified Code(s): I10 - Essential (primary) hypertension Code(s): I10 - Essential (primary) hypertension Status: Chronic Assessment and Plan: Controlled on metoprolol (5) Irritable bowel syndrome: Qualifiers: Irritable bowel syndrome type: unspecified Qualified Code(s): K58.9 - Irritable bowel syndrome without diarrhea Code(s): K58.9 - Irritable bowel syndrome without diarrhea Status: Chronic Assessment and Plan: on loperamide prn (6) Hyperlipidemia: Qualifiers: Hyperlipidemia type: unspecified Qualified Code(s): E78.5 - Hyperlipidemia, unspecified Code(s): E78.5 - Hyperlipidemia, unspecified Status: Chronic Assessment and Plan: On statin Subjective Date/time seen: 02/10/20 17:52 Interval history: Bhakti Jones is a 69 year old female in rehab after rapair of ruptured AAA. Consult for abnormal cxr and fever and abnormal urine culture. Mild paraincisional discomfort. Denied other pain. Denied cough. Very tired. Appetite only fair. No GI or c/o otherwise. Review of Systems Review of Systems: All systems reviewed & are unremarkable except as noted in HPI and below Exam Narrative: Exam Narrative: HEENT: EOMI, PERRL, sclerae nonicteric, pharyngeal mucosa pink and intact NECK: No JVD, adenopathy, or thyromegaly CHEST: Clear to auscultation. Normal effort. HEART: NL S1/S2, regular, no murmur ABDOMEN: BS+, soft, TENDER AROUND INCISION EXTREMITIES: No cyanosis, edema, or clubbing NEUROLOGIC: CN intact and symmetric to inspection. MUSCULOSKELETAL: Tone and strength symmetric. PSYCH: Alert. Oriented to person, place, and time. Objective Data Vital Signs Vital Signs: Vital Signs - 24 hr 02/09/20 20:18 02/09/20 20:50 02/10/20 05:48 Temperature 98.8 F 97.4 F L Pulse Rate 88 76 88 Respiratory Rate 18 20 Blood Pressure 117/77 123/53 L Pulse Oximetry 96 94 02/10/20 09:53 02/10/20 14:00 Temperature 98.3 F Pulse Rate 88 78 Respiratory Rate 19 Blood Pressure 108/54 L Pulse Oximetry 97 Intake/Output Intake/Output: Intake & Output 02/07/20 02/08/20 02/09/20 02/10/20 23:59 23:59 23:59 23:59 Intake Total 2970 3002 1040 440 Balance 2970 3002 1040 440 Meds/Results Medications: Active Medications Generic Name Dose Route Start Last Admin Trade Name Freq PRN Reason Stop Dose Admin Acetaminophen 1,000 mg 01/31/20 16:47 02/09/20 01:50 Acetaminophen 500 Mg Tablet PO 1,000 mg Q6H PRN Administration Pain (Scale Score 4-6) Amlodipine Besylate 5 mg 02/01/20 09:00 02/10/20 09:53 Amlodipine Besylate 5 Mg Tablet PO 5 mg DAILY AMOR Administration Clopidogrel Bisulfate 75 mg 02/01/20 09:00 02/10/20 0
[2020-02-10] MEDS: DIPHENOXYLATE/ATROPINE (*CRX) 2.5 MG TABLET 2 TABLET PO (18:01)
[2020-02-10 20:35] VITALS: PULSE 80; RESP 19; O2SAT 97
[2020-02-10 21:27] VITALS: PULSE 80
[2020-02-10] MEDS: SIMVASTATIN 10 MG TABLET PO (21:28)
[2020-02-10] MEDS: MELATONIN 3 MG TABLET PO (21:31)
[2020-02-10] MEDS: MELATONIN 5 MG TABLET PO (21:31)
[2020-02-10 22:00] VITALS: BP 116/58; PULSE 82; RESP 20; TEMP 36.6; O2SAT 97
[2020-02-11] MEDS: DIPHENOXYLATE/ATROPINE (*CRX) 2.5 MG TABLET 2 TABLET PO ×5 (00:46→23:54)
[2020-02-11 05:20] LABS: Anion Gap 6 mmol/L (8-16); Blood Urea Nitrogen 22 mg/dL (7-17); Calcium 7.7 mg/dL (8.4-10.2); Carbon Dioxide 24 mmol/L (22-30); Chloride 104 mmol/L (98-107); Estimated CRCL calculation 23 ml/min; Estimated Glomerular Filt Rate 28; Glucose 116 mg/dL (65-105); Magnesium 1.9 mg/dL (1.6-2.3); Potassium 4.2 mmol/L (3.4-5.0); Sodium 134 mmol/L (137-145)
[2020-02-11 06:00] VITALS: BP 109/61; PULSE 72; RESP 18; TEMP 36.4; O2SAT 96
[2020-02-11] MEDS: SACCHAROMYCES BOULARDII 250 MG CAPSULE PO ×3 (08:27→17:46)
[2020-02-11] MEDS: MECLIZINE HCL 25 MG TABLET PO ×3 (08:28→17:46)
[2020-02-11] MEDS: METOPROLOL TARTRATE 25 MG TABLET PO ×2 (08:28→20:09)
[2020-02-11] MEDS: POTASSIUM CHLORIDE 20 MEQ PACKET (FOR LIQUID) PO (08:28)
[2020-02-11] MEDS: ESCITALOPRAM OXALATE 10 MG TABLET PO (08:28)
[2020-02-11] MEDS: CLOPIDOGREL BISULFATE 75 MG TABLET PO (08:28)
[2020-02-11] MEDS: amLODIPine BESYLATE 5 MG TABLET PO (08:28)
[2020-02-11] MEDS: MICONAZOLE NITRATE 2% CREAM 30 GM TUBE 1 APPLIC TOPICAL ×2 (08:29→20:10)
[2020-02-11] MEDS: FLUTICASONE PROPIONATE 0.05% NA SPR 16 GM BTL (*BKC) 2 SPRAY NASAL (08:29)
--- NOTE | 2020-02-11 11:49 | WPDNEURORHBP ---
Subjective Date/time seen: 02/11/20 11:49 69 years old with history of abdominal aortic rupture and repair in addition to ongoing history of underlying depression over the last 24 to 48 hours she had been having loose stool for which she was treated accordingly, yesterday her WBCs were 9.4 with hemoglobin 11.1 and platelet count of 593 sodium 134 potassium 4.2 BUN 22 and creatinine of 1.80 but GFR only 28 she is afebrile with a temp of 36.4? pulse 72 and respiration 18 blood pressure 109/61 Functional Status Ambulation Ability Ability to Ambulate 10 Feet: Contact Guard Ambulation Assistive Devices: Walker, Wheeled Exam Narrative: Exam Narrative: on examination she is awake alert cooperative in no obvious acute distress very pleasant and also more alert and more communicative his speech nor dysphasic no dysarthric heart regular with no murmur lungs clear to auscultation patient with no rhonchi or crepitation nontender normal bowel wound completely clean neurological examination revealed her to have no focal neurological deficit Objective Data Vital Signs Vital Signs: Vital Signs - 24 hr 02/10/20 14:00 02/10/20 20:35 02/10/20 21:27 Temperature 36.8 C Pulse Rate 78 80 80 Respiratory Rate 19 19 Blood Pressure 108/54 L Pulse Oximetry 97 97 02/10/20 22:00 02/11/20 06:00 Temperature 36.6 C 36.4 C Pulse Rate 82 72 Respiratory Rate 20 18 Blood Pressure 116/58 L 109/61 Pulse Oximetry 97 96 Intake/Output Intake/Output: Intake & Output 02/08/20 02/09/20 02/10/20 02/11/20 23:59 23:59 23:59 23:59 Intake Total 3002 1040 780 50 Balance 3002 1040 780 50 Meds/Results Medications: Active Medications Generic Name Dose Route Start Last Admin Trade Name Freq PRN Reason Stop Dose Admin Acetaminophen 1,000 mg 01/31/20 16:47 02/09/20 01:50 Acetaminophen 500 Mg Tablet PO 1,000 mg Q6H PRN Administration Pain (Scale Score 4-6) Amlodipine Besylate 5 mg 02/01/20 09:00 02/11/20 08:28 Amlodipine Besylate 5 Mg Tablet PO 5 mg DAILY AMOR Administration Clopidogrel Bisulfate 75 mg 02/01/20 09:00 02/11/20 08:28 Clopidogrel Bisulfate 75 Mg Tablet PO 75 mg DAILY AMOR Administration Diphenoxylate HCl/Atropine 2 tablet 02/10/20 18:00 02/11/20 05:38 Diphenoxylate/Atropine (*Crx) 2.5 Mg Tablet PO 2 tablet Q6HR AMOR Administration Escitalopram Oxalate 10 mg 02/01/20 09:00 02/11/20 08:28 Escitalopram Oxalate 10 Mg Tablet PO 10 mg DAILY AMOR Administration Fluticasone Propionate 2 spray 02/01/20 09:00 02/11/20 08:29 Fluticasone Propionate 0.05% Na Spr 16 Gm Btl (*Bkc) NASAL 2 spray DAILY AMOR Administration Piperacillin/Tazobactam/Dextrose 3.375 gm in 50 mls @ 100 mls/hr 02/06/20 18:00 02/11/20 05:38 Zosyn 3.375 Gm/D5w 50ml Pm IVPB 100 mls/hr Q6HR AMOR Administration Vancomycin HCl 1,250 mg in 250 mls @ 200 mls/hr 02/09/20 12:00 02/10/20 00:27 Vancomycin 1,250 Mg/D5w 250 Ml IVPB 200 mls/hr Q12H AMOR Administration Meclizine HCl 25 mg 02/01/20 17:00 02/11/20 08:28 Meclizine Hcl 25 Mg Tablet PO 25 mg TID AMOR Administration Melatonin 5 mg 01/31/20 21:00 02/10/20 21:31 Melatonin 5 Mg Tablet PO 5 mg HS AMOR Administration Melatonin 3 mg 01/31/20 21:00 02/10/20 21:31 Melatonin 3 Mg Tablet PO 3 mg HS AMOR Administration Metoprolol Tartrate 25 mg 01/31/20 21:00 02/11/20 08:28 Metoprolol Tartrate 25 Mg Tablet PO 25 mg Q12HR AMOR Administration Miconazole Nitrate 1 applic 02/08/20 21:00 02/11/20 08:29 Miconazole Nitrate 2% Cream 30 Gm Tube TOPICAL 1 applic Q12HR AMOR Administration Potassium Chloride 20 meq 02/09/20 09:00 02/11/20 08:28 Potassium Chloride 20 Meq Packet (For Liquid) PO 20 meq DAILY AMOR Administration Saccharomyces Boulardii 250 mg 02/08/20 13:00 02/11/20 08:27 Saccharomyces Boulardii 250 Mg Capsule PO 250 mg TID AMOR Administration Simvastatin 10 mg 01/31/20 21:00
[2020-02-11 12:52] LABS: Vancomycin Random 20.6 ug/mL (10-20)
--- NOTE | 2020-02-11 13:18 | PCDIET ---
Nutrition Follow-Up Complete: Nutrition Diagnosis: Suboptimal oral intake related to decreased appetite, early satiety as evidenced by patient statements, intakes 10-25%. Nutrition Goal: Patient to consume 50% of meals/supplements or greater. Goal in progress. Intakes slightly improved with average of 25% of recorded meals since 02/07/20. Patient continues on Ensure Clear TID and Frozen Nutritional Treat. If medically appropriate, may consider appetite stimulant. Last recorded weight is 61 kg. Recommend obtaining new weight. Bowel Motility: BM x 2 (loose) on 02/10/20. Labs Reviewed: Glu (116), BUN (22), Cr (1.8), Na (134), Ca (7.7) Meds Noted: Vancomycin, Zocor, Florastor, KCl, Zosyn, Lopressor, Lomotil, Norvasc Additional Notes: Documented surgical incisions to abdomen and groin; no pressure sores documented. Will continue to monitor with same goal. Nutrition Monitoring and Evaluation: Follow up every 5 days.
[2020-02-11 13:40] VITALS: BP 107/59; PULSE 73; RESP 14; TEMP 36.2; O2SAT 98
--- NOTE | 2020-02-11 14:38 | PM.IMPN ---
Progress Note: A&P Assessment and Plan (1) UTI (urinary tract infection): Qualifiers: Urinary tract infection type: site unspecified Hematuria presence: without hematuria Qualified Code(s): N39.0 - Urinary tract infection, site not specified Code(s): N39.0 - Urinary tract infection, site not specified Status: Acute Assessment and Plan: Culture with entercoccus Continue vancomycin (2) Pneumonia: Qualifiers: Pneumonia type: due to unspecified organism Laterality: unspecified laterality Lung location: unspecified part of lung Qualified Code(s): J18.9 - Pneumonia, unspecified organism Code(s): J18.9 - Pneumonia, unspecified organism Status: Acute Assessment and Plan: Continue Vanc and Zosyn Pt is on RA CXR stable with bilat LL infiltrates vs atelectasis I will consult ID regarding home ABX treatment (3) Abdominal aortic aneurysm, ruptured: Code(s): I71.3 - Abdominal aortic aneurysm, ruptured Status: Acute Assessment and Plan: Pt in rehab.Pt wearing her abdominal binder more, continue PT/OT (4) Hypertension: Qualifiers: Hypertension type: unspecified Qualified Code(s): I10 - Essential (primary) hypertension Code(s): I10 - Essential (primary) hypertension Status: Chronic Assessment and Plan: Controlled on metoprolol (5) Irritable bowel syndrome: Qualifiers: Irritable bowel syndrome type: unspecified Qualified Code(s): K58.9 - Irritable bowel syndrome without diarrhea Code(s): K58.9 - Irritable bowel syndrome without diarrhea Status: Chronic Assessment and Plan: on loperamide prn (6) Hyperlipidemia: Qualifiers: Hyperlipidemia type: unspecified Qualified Code(s): E78.5 - Hyperlipidemia, unspecified Code(s): E78.5 - Hyperlipidemia, unspecified Status: Chronic Assessment and Plan: On statin (7) Peripheral arterial disease: Code(s): I73.9 - Peripheral vascular disease, unspecified Status: Acute Assessment and Plan: Pt had arterial dopplers of her legs in hospital. Subjective Date/time seen: 02/11/20 14:38 Interval history: Bhakti Jones is a 69 year old female in rehab after repair of ruptured AAA. Consult for abnormal cxr and fever and abnormal urine culture. Pt being treated for HAP and UTI on IV vancomycin and IV zosyn, Pt had cxr which shows- unchanged opacities in the bilateral lower lung zones. Wcc is better, BC is negative. I will consult ID as pt still looks unwell and depressed very concerned to go home on the . Review of Systems Review of Systems: All systems reviewed & are unremarkable except as noted in HPI and below Exam Const: General: uncomfortable and other (Down and depressed ) Nutritional Appearance: well nourished HENMT: Head: normocephalic Eyes: General: appearance normal, both eyes and all related structures Pupils: Equal, round and reactive pupils present Neck: Neck: supple Chest: Chest palpation & inspection: normal inspection of the chest Resp: Effort & Inspection: normal respiratory effort Auscultation: diminished lung sounds Cardio: Jugular venous distension: no JVD Rhythm: regular rhythm Heart sounds: S1 normal heart sound present and S2 normal heart sound present GI: Inspection: other (long vertical mid line wound with philip clean and dry no oozing ) Auscultation: normal bowel sounds Skin: General skin exam: normal color and dry skin Neuro: Cranial nerves: Yes CN's II-XII intact bilaterally and Yes Equal, round and reactive pupils present Cognition (Neuro): normal cognition Speech: normal speech Motor exam (neuro): 5/5 motor strength present throughout Extrem: General: normal to inspection Psych: Appearance: grossly normal Mental Status: mental status grossly normal Objective Data Vital Signs Vital Signs: Vital Signs - 24 hr 02/10/20 20:35 02/09
--- NOTE | 2020-02-11 16:26 | PM.CNNEP ---
Assessment and Plan Assessment and plan (1) Acute kidney injury: Code(s): N17.9 - Acute kidney failure, unspecified Status: Acute Assessment and Plan: Bhakti has acute kidney injury. Her creatinine was normal for the 1st few days while she was here. Recently however her creatinine has risen. She has not received any contrast. She is on vancomycin but usually Vancomycin results in a very slow rise in the creatinine not a sudden rise like this is. The patient isn't drinking very much fluid and she has diarrhea. Her mucous membranes are dry. I think she might be dehydrated, which could be causing the elevated creatinine.. Her chest x-ray however does show some findings. This is felt to be pneumonia but she does have some pleural effusions. Her blood pressure is a bit on the low side, probably due to the above. Will hold amlodipine for now. This may help her creatinine as well. Interstitial nephritis is always a possibility and patient is on antibiotics, however similar to vancomycin, this results in a very slow rise in the creatinine not a sudden jump like hers. Obstruction can always do this as well. We will check a renal ultrasound. Cholesterol emboli is a possibility as well, and vascular issues could be at play since she is at higher risk because presence of the aneurysm. Glomerulonephritis is unlikely in this clinical scenario. Rhabdomyolysis is always possible also but unlikely. At this point we will check a renal ultrasound, urine electrolytes and eosinophils, and check a CPK. The vancomycin has been held. (2) Diarrhea: Code(s): R19.7 - Diarrhea, unspecified Status: Acute Assessment and Plan: The patient has diarrhea. This is felt to be due to irritable bowel syndrome. She is getting antidiarrheals for this. (3) UTI (urinary tract infection): Qualifiers: Urinary tract infection type: site unspecified Hematuria presence: without hematuria Qualified Code(s): N39.0 - Urinary tract infection, site not specified Code(s): N39.0 - Urinary tract infection, site not specified Status: Acute Assessment and Plan: She has a positive urine culture. She is getting antibiotics for this. (4) Pneumonia: Qualifiers: Pneumonia type: due to unspecified organism Laterality: unspecified laterality Lung location: unspecified part of lung Qualified Code(s): J18.9 - Pneumonia, unspecified organism Code(s): J18.9 - Pneumonia, unspecified organism Status: Acute Assessment and Plan: The patient is on antibiotics. (5) Hypertension: Qualifiers: Hypertension type: unspecified Qualified Code(s): I10 - Essential (primary) hypertension Code(s): I10 - Essential (primary) hypertension Status: Chronic Assessment and Plan: Her blood pressure is a bit on the low side. Will hold the amlodipine. (6) Anorexia: Code(s): R63.0 - Anorexia Status: Acute Assessment and Plan: She says she has that her anorexia seems a little bit better but she is not drinking fluids very well. Will give her a small amount of IV fluids overnight. (7) Peripheral arterial disease: Code(s): I73.9 - Peripheral vascular disease, unspecified Status: Acute Assessment and Plan: The patient had an aneurysm rupture. (8) Abdominal aortic aneurysm, ruptured: Code(s): I71.3 - Abdominal aortic aneurysm, ruptured Status: Acute (9) Hyperlipidemia: Qualifiers: Hyperlipidemia type: unspecified Qualified Code(s): E78.5 - Hyperlipidemia, unspecified Code(s): E78.5 - Hyperlipidemia, unspecified Status: Chronic Assessment and Plan: She is on simvastatin. History of Present Illness Reason for Consult Consult date: 02/11/20 Chief Complaint Chief complaint: Cardiac- Ruptured AAA History of Present Illness Narrative: A very pleasant 69-year-old lady who has mu
[2020-02-11] MEDS: SODIUM CHLORIDE 0.9% IV 1,000 ML 75 ML IV CONT (17:42)
[2020-02-11 17:56] LABS: Creatine Kinase < 20 U/L (30-135)
[2020-02-11] MEDS: MELATONIN 5 MG TABLET PO (20:06)
[2020-02-11 20:09] VITALS: PULSE 76
[2020-02-11] MEDS: MELATONIN 3 MG TABLET PO (20:09)
[2020-02-11] MEDS: SIMVASTATIN 10 MG TABLET PO (20:10)
[2020-02-11 20:34] VITALS: BP 109/49; PULSE 76; RESP 20; TEMP 36.3; O2SAT 94
[2020-02-12 05:22] VITALS: BP 112/58; PULSE 86; RESP 20; TEMP 37.2; O2SAT 94
[2020-02-12] MEDS: DIPHENOXYLATE/ATROPINE (*CRX) 2.5 MG TABLET 2 TABLET PO ×4 (06:28→23:27)
[2020-02-12 07:10] LABS: Albumin Level 2.2 g/dL (3.5-5.1); Anion Gap 9 mmol/L (8-16); Blood Urea Nitrogen 24 mg/dL (7-17); Calcium 7.7 mg/dL (8.4-10.2); Carbon Dioxide 23 mmol/L (22-30); Chloride 103 mmol/L (98-107); Estimated CRCL calculation 18 ml/min; Estimated Glomerular Filt Rate 21; Glucose 89 mg/dL (65-105); Phosphorus 4.6 mg/dL (2.5-4.5); Potassium 4.4 mmol/L (3.4-5.0); Sodium 135 mmol/L (137-145)
[2020-02-12 07:13] LABS: Vancomycin Random 19.9 ug/mL (10-20)
[2020-02-12] MEDS: FLUTICASONE PROPIONATE 0.05% NA SPR 16 GM BTL (*BKC) 2 SPRAY NASAL (08:11)
[2020-02-12] MEDS: METOPROLOL TARTRATE 25 MG TABLET PO ×2 (08:11→21:59)
[2020-02-12] MEDS: CLOPIDOGREL BISULFATE 75 MG TABLET PO (08:11)
[2020-02-12] MEDS: MECLIZINE HCL 25 MG TABLET PO ×3 (08:11→17:29)
[2020-02-12] MEDS: ESCITALOPRAM OXALATE 10 MG TABLET PO (08:11)
[2020-02-12] MEDS: MICONAZOLE NITRATE 2% CREAM 30 GM TUBE 1 APPLIC TOPICAL ×2 (08:12→21:59)
[2020-02-12] MEDS: SACCHAROMYCES BOULARDII 250 MG CAPSULE PO ×3 (08:12→17:29)
[2020-02-12] MEDS: POTASSIUM CHLORIDE 20 MEQ PACKET (FOR LIQUID) PO (08:12)
[2020-02-12 08:28] VITALS: BP 122/60; PULSE 81; O2SAT 97
[2020-02-12 09:35] VITALS: RESP 20; O2SAT 94
--- NOTE | 2020-02-12 09:50 | WPDNEURORHBP ---
Subjective Date/time seen: 02/12/20 09:50 Is status post abdominal aortic aneurysm rupture and repair in addition to the ongoing history of 1. Depression 2. Diarrhea 3. Pneumonia and 4. Electrolyte imbalance. Patient is receiving tazobactam IV piggyback q.6 hours and vancomycin 12 50 mg q.12 hours in addition to clopidogrel 75 mg daily he cited a prime 10 mg daily. Her temp today is 37.2 with pulse 86 respiration 20 blood pressure 112/58 better than yesterday, patient has been seen by the spa experience coordinator and because of the low blood pressure and amlodipine has been held, in the electrolytes have been attributed to mild dehydration because he has diarrhea, we were planning to discharge her on Tuesday but that discharge has been extended for the next Tuesday also we are waiting for Dr. avila opinion vanc level are down to 20.6 and 19.9 Review of Systems Review of Systems: All systems reviewed & are unremarkable except as noted in HPI and below Functional Status Ambulation Ability Ability to Ambulate 10 Feet: Contact Guard Ambulation Assistive Devices: Walker, Wheeled Exam Const: General: cooperative, comfortable, no acute distress, alert and awake Nutritional Appearance: average body habitus Orientation/consciousness: patient oriented x3 Limitations: no limitations Eyes: Visual Jeff: normal visual jeff by confrontation Eyelids: eyelids normal Cornea: corneas normal Pupils: Equal, round and reactive pupils present EOM: EOMs intact bilaterally Direct Ophthalmoscopy: normal light reflex Neck: Neck: full ROM and no lymphadenopathy Thyroid: thyroid normal Carotids: normal carotid upstroke Chest: Chest palpation & inspection: normal palpation of entire chest wall Resp: Effort & Inspection: normal respiratory effort and able to speak in complete sentences Auscultation: clear to auscultation bilaterally Cardio: Rate: regular rate Rhythm: regular rhythm GI: Inspection: normal to inspection and incision GI Palp: Yes Soft to palpation and Yes No hepatosplenomegaly present Percussion: Yes normal to percussion Auscultation: normal bowel sounds Other: wound healthy Back/Spine/Pelvis: Back: no CVA tenderness Cervical Spine: cervical ROM normal Skin: General skin exam: normal color and no rashes or lesions noted Neuro: General: patient oriented x3, moves all extremities, no focal motor deficits and CN's II-XI intact bilaterally Cognition (Neuro): normal cognition Speech: normal speech Gait exam (Neuro): Normal gait present Motor exam (neuro): Pronator motor function not present Sensory Exam: normal sensation Deep tendon reflexes (DTR's): Right triceps reflex intensity grade: 1+, Left triceps reflex intensity grade: 1+, Rt Biceps (C5, C6): 1+, Left biceps reflex intensity grade: 1+, Right brachioradialis reflex intensity grade: 1+, Left brachioradialis reflex intensity grade: 1+, Right patellar reflex intensity grade: 1+, Left patellar reflex intensity grade: 1+, Right ankle reflex intensity grade: 1+ and Left ankle reflex intensity grade: 1+ Plantar Reflex Responses: downgoing: bilateral Coordination: [id number] test normal Psych: Mental Status: mental status grossly normal Speech and movement: Normal speech and movement present Affect: normal affect Attitude: cooperative Thought process: Normal thought process present Thought content: Yes Normal thought content present Objective Data Vital Signs Vital Signs: Vital Signs - 24 hr 02/11/20 13:40 02/11/20 20:09 02/11/20 20:34 Temperature 36.2 C L 36.3 C L Pulse Rate 73 76 76 Respiratory Rate 14 20 Blood Pressure 107/59 L 109/49 L Pulse Oximetry 98 94 02/12/20 05:22 02/12/20 09:35 Temperature 37.2 C Pulse Rate 86 Respiratory Rate 20 20 Blood Pressure 112/58 L Pulse Oximetry 94 94 Intake/Output Intake/Output: Intake & Output 02/09/20 02/10/20 02/11/20 02/12/20 23:59 23:59 23:59 23:59 Intake Total 1040 780 200 175 Balance 1040 780 200 175 Id
--- NOTE | 2020-02-12 11:43 | PCOTNOTE ---
Addendum entered by Abel Macedo OT 02/12/20 11:44: Treatment was attempted at 11:00 02/12/20. Original Note: OT treatment was attempted but unable to be complete at this time due to patient out for testing. Will attempt this afternoon.
--- NOTE | 2020-02-12 12:08 | PCPTNOTE ---
Patient refused treatment this session due to patient stated I cant do it right now come back later. Therapist encouraged and educated patient importance of therapy session. Patient continued to refuse remaining PT session. Patient missed 18 minutes of PT session this AM. Will try back later.
--- NOTE | 2020-02-12 13:40 | PM.IMPN ---
Progress Note: A&P Assessment and Plan (1) UTI (urinary tract infection): Qualifiers: Urinary tract infection type: site unspecified Hematuria presence: without hematuria Qualified Code(s): N39.0 - Urinary tract infection, site not specified Code(s): N39.0 - Urinary tract infection, site not specified Status: Acute Assessment and Plan: Culture with entercoccus Continue vancomycin, creat is increasing stop vancomycin today, vancomycin level high (2) Pneumonia: Qualifiers: Pneumonia type: due to unspecified organism Laterality: unspecified laterality Lung location: unspecified part of lung Qualified Code(s): J18.9 - Pneumonia, unspecified organism Code(s): J18.9 - Pneumonia, unspecified organism Status: Acute Assessment and Plan: Continue Vanc and Zosyn Pt is on RA CXR stable with bilat LL infiltrates vs atelectasis I will consult ID regarding home ABX treatment and oral ABX (3) Abdominal aortic aneurysm, ruptured: Code(s): I71.3 - Abdominal aortic aneurysm, ruptured Status: Acute Assessment and Plan: Pt in rehab. Pt wearing her abdominal binder more, continue PT/OT [place] need removal. (4) Hypertension: Qualifiers: Hypertension type: unspecified Qualified Code(s): I10 - Essential (primary) hypertension Code(s): I10 - Essential (primary) hypertension Status: Chronic Assessment and Plan: Controlled on metoprolol (5) Irritable bowel syndrome: Qualifiers: Irritable bowel syndrome type: unspecified Qualified Code(s): K58.9 - Irritable bowel syndrome without diarrhea Code(s): K58.9 - Irritable bowel syndrome without diarrhea Status: Chronic Assessment and Plan: on loperamide prn (6) Hyperlipidemia: Qualifiers: Hyperlipidemia type: unspecified Qualified Code(s): E78.5 - Hyperlipidemia, unspecified Code(s): E78.5 - Hyperlipidemia, unspecified Status: Chronic Assessment and Plan: On statin (7) Peripheral arterial disease: Code(s): I73.9 - Peripheral vascular disease, unspecified Status: Acute Assessment and Plan: Pt had arterial dopplers of her legs in hospital. Chronic changes only Subjective Date/time seen: 02/12/20 13:40 Interval history: Bhakti Jones is a 69 year old female in rehab after repair of ruptured AAA. Consult for abnormal cxr and fever and abnormal urine culture. Pt being treated for HAP and UTI on IV vancomycin and IV zosyn, Pt had cxr which shows- unchanged opacities in the bilateral lower lung zones. Wcc is better, BC is negative. I will consult ID as pt still looks unwell and depressed very concerned to go home on the . Pt looks little better, no cough, not SOB, no dysuria reported. Pt having some diarrhea, looks dry, creat slightly up. Review of Systems Review of Systems: All systems reviewed & are unremarkable except as noted in HPI and below Exam Narrative: Exam Narrative: GENERALLY: Elderly lady depressed lying in bed CHEST: Clear to auscultation. Normal effort. HEART: NL S1/S2, regular, no murmur ABDOMEN: Long vertical line with philip, no pus or drainage, dry and clean EXTREMITIES: No cyanosis, edema, or clubbing NEUROLOGIC: CN intact and symmetric to inspection. MUSCULOSKELETAL: Tone and strength symmetric. PSYCH: Alert. Oriented to person, place, and time. Objective Data Vital Signs Vital Signs: Vital Signs - 24 hr 02/11/20 20:09 02/11/20 20:34 02/12/20 05:22 Temperature 36.3 C L 37.2 C Pulse Rate 76 76 86 Respiratory Rate 20 20 Blood Pressure 109/49 L 112/58 L Pulse Oximetry 94 94 02/12/20 08:28 02/12/20 09:35 Temperature Pulse Rate 81 Respiratory Rate 20 Blood Pressure 122/60 Pulse Oximetry 97 94 Intake/Output Intake/Output: Intake & Output 02/09/20 02/10/20 02/11/20 02/12/20 23:59 23:59 23:59 23:59 Intake Total 1040 780 200 345
--- NOTE | 2020-02-12 13:56 | WPDINFPN2 ---
Progress Note: A&P Assessment and Plan (1) Pneumonia: Qualifiers: Pneumonia type: due to unspecified organism Laterality: unspecified laterality Lung location: unspecified part of lung Qualified Code(s): J18.9 - Pneumonia, unspecified organism Code(s): J18.9 - Pneumonia, unspecified organism Status: Acute Assessment and Plan: Recent fever, lung source RLL. PipTazo and Vanc #6. REC Due to acute renal failure, stop antibiotics and follow Subjective Date/time seen: 02/12/20 13:56 Objective Data Vital Signs Vital Signs: Vital Signs - 24 hr 02/11/20 20:09 02/11/20 20:34 02/12/20 05:22 Temperature 36.3 C L 37.2 C Pulse Rate 76 76 86 Respiratory Rate 20 20 Blood Pressure 109/49 L 112/58 L Pulse Oximetry 94 94 02/12/20 08:28 02/12/20 09:35 Temperature Pulse Rate 81 Respiratory Rate 20 Blood Pressure 122/60 Pulse Oximetry 97 94 Intake/Output Intake/Output: Intake & Output 02/09/20 02/10/20 02/11/20 02/12/20 23:59 23:59 23:59 23:59 Intake Total 1040 780 200 345 Balance 1040 780 200 345 Meds/Results Medications: Active Medications Generic Name Dose Route Start Last Admin Trade Name Freq PRN Reason Stop Dose Admin Acetaminophen 1,000 mg 01/31/20 16:47 02/09/20 01:50 Acetaminophen 500 Mg Tablet PO 1,000 mg Q6H PRN Administration Pain (Scale Score 4-6) Clopidogrel Bisulfate 75 mg 02/01/20 09:00 02/12/20 08:11 Clopidogrel Bisulfate 75 Mg Tablet PO 75 mg DAILY AMOR Administration Diphenoxylate HCl/Atropine 2 tablet 02/10/20 18:00 02/12/20 12:29 Diphenoxylate/Atropine (*Crx) 2.5 Mg Tablet PO 2 tablet Q6HR AMOR Administration Escitalopram Oxalate 10 mg 02/01/20 09:00 02/12/20 08:11 Escitalopram Oxalate 10 Mg Tablet PO 10 mg DAILY AMOR Administration Fluticasone Propionate 2 spray 02/01/20 09:00 02/12/20 08:11 Fluticasone Propionate 0.05% Na Spr 16 Gm Btl (*Bkc) NASAL 2 spray DAILY AMOR Administration Piperacillin/Tazobactam/Dextrose 3.375 gm in 50 mls @ 100 mls/hr 02/06/20 18:00 02/12/20 12:23 Zosyn 3.375 Gm/D5w 50ml Pm IVPB 100 mls/hr Q6HR AMOR Administration Sodium Chloride 1,000 mls @ 70 mls/hr 02/12/20 13:55 Normal Saline Iv IV CONT .[id number] AMOR Meclizine HCl 25 mg 02/01/20 17:00 02/12/20 12:24 Meclizine Hcl 25 Mg Tablet PO 25 mg TID AMOR Administration Melatonin 5 mg 01/31/20 21:00 02/11/20 20:06 Melatonin 5 Mg Tablet PO 5 mg HS AMOR Administration Melatonin 3 mg 01/31/20 21:00 02/11/20 20:09 Melatonin 3 Mg Tablet PO 3 mg HS AMOR Administration Metoprolol Tartrate 25 mg 01/31/20 21:00 02/12/20 08:11 Metoprolol Tartrate 25 Mg Tablet PO 25 mg Q12HR AMOR Administration Miconazole Nitrate 1 applic 02/08/20 21:00 02/12/20 08:12 Miconazole Nitrate 2% Cream 30 Gm Tube TOPICAL 1 applic Q12HR AMOR Administration Potassium Chloride 20 meq 02/09/20 09:00 02/12/20 08:12 Potassium Chloride 20 Meq Packet (For Liquid) PO 20 meq DAILY AMOR Administration Saccharomyces Boulardii 250 mg 02/08/20 13:00 02/12/20 12:24 Saccharomyces Boulardii 250 Mg Capsule PO 250 mg TID AMOR Administration Simvastatin 10 mg 01/31/20 21:00 02/11/20 20:10 Simvastatin 10 Mg Tablet PO 10 mg HS AMOR Administration Radiology Results: ITS Impressions Duplex Scan Lower Extremity Artery 02/10/20 08:40 IMPRESSION: 1. No significant arterial occlusive disease with triphasic waveforms with brisk systolic upstrokes in the posterior tibial and dorsalis pedis arteries at the bilateral lower legs. 2. Cardiac arrhythmias present. Correlate with EKG . Chest X-Ray 02/10/20 08:49 IMPRESSION: 1. Unchanged opacities in the bilateral lower lung zones consistent with small bilateral pleural effusions and associated basilar atelectasis and/or pneumonia. Renal Ultrasound 02/11/20 17:45 IMPRESSION: 1. Echogenic kidneys consistent wi
[2020-02-12 14:00] VITALS: BP 131/66; PULSE 77; RESP 16; TEMP 36.6; O2SAT 97
[2020-02-12] MEDS: SODIUM CHLORIDE 0.9% IV 1,000 ML 70 ML IV CONT (14:07)
--- NOTE | 2020-02-12 14:44 | PCPTNOTE ---
Attempted afternoon PT treatment. Pt compliant and agreeable to supine therex. Pt refuses continuation of treatment after 31 minutes of therex stating her back pain is flaring up and her pain is radiating to her hips. Pt refuses offer of pain medication or k pad for pain relief. Cindy Buckner DPT
--- NOTE | 2020-02-12 17:21 | PM.PNNEP ---
Progress Note: A&P Assessment and Plan (1) Acute kidney injury: Code(s): N17.9 - Acute kidney failure, unspecified Status: Acute Assessment and Plan: Bhakti has acute kidney injury. renal sono neg for acute issues. urines not done yet pt possibly has dehydration. I/Os not being tabulated, so I reminded nursing to do this. pt is making urine she says. she did receive the ivfs yesterday it seems but not positive. pt says she did. vascular issues may be at play since she had a ruptured aortic aneurysm. will check a renal scan to assess flow to each kidney. creatinine is higher. will give more fluids. was on vancomycin. Dr De Souza stopped this. Discussed with Dr Medrano. (2) Diarrhea: Code(s): R19.7 - Diarrhea, unspecified Status: Acute Assessment and Plan: The patient has diarrhea. This is felt to be due to irritable bowel syndrome. She is getting antidiarrheals for this. (3) UTI (urinary tract infection): Qualifiers: Urinary tract infection type: site unspecified Hematuria presence: without hematuria Qualified Code(s): N39.0 - Urinary tract infection, site not specified Code(s): N39.0 - Urinary tract infection, site not specified Status: Acute Assessment and Plan: She has a positive urine culture. She received 5 days of atbs for this. (4) Pneumonia: Qualifiers: Pneumonia type: due to unspecified organism Laterality: unspecified laterality Lung location: unspecified part of lung Qualified Code(s): J18.9 - Pneumonia, unspecified organism Code(s): J18.9 - Pneumonia, unspecified organism Status: Acute Assessment and Plan: The patient is on antibiotics. (5) Hypertension: Qualifiers: Hypertension type: unspecified Qualified Code(s): I10 - Essential (primary) hypertension Code(s): I10 - Essential (primary) hypertension Status: Chronic Assessment and Plan: Her blood pressure is better without the amlodipine (6) Anorexia: Code(s): R63.0 - Anorexia Status: Acute Assessment and Plan: She says she has that her anorexia seems a little bit better but she is not drinking fluids very well. getting ivfs (7) Peripheral arterial disease: Code(s): I73.9 - Peripheral vascular disease, unspecified Status: Acute Assessment and Plan: The patient had an aneurysm rupture. (8) Abdominal aortic aneurysm, ruptured: Code(s): I71.3 - Abdominal aortic aneurysm, ruptured Status: Acute (9) Hyperlipidemia: Qualifiers: Hyperlipidemia type: unspecified Qualified Code(s): E78.5 - Hyperlipidemia, unspecified Code(s): E78.5 - Hyperlipidemia, unspecified Status: Chronic Assessment and Plan: She is on simvastatin. Subjective Date/time seen: 02/12/20 17:21 Interval history: patient is feeling better. this am had some dizziness. diarrhea is better. eating just okay. drinking some fluids. Review of Systems Cardiovascular: Cardiovascular: Reports no additional cardiovascular complaints Respiratory: Respiratory: Reports no additional respiratory complaints Gastrointestinal: Gastrointestinal: Reports no additional gastrointestinal complaints Genitourinary: Genitourinary: Reports no additional female genitourinary complaints Exam Narrative: Exam Narrative: WDWN in NAD skin no rash head ncat lungs clear cor reg no rub abd BS+ nontender and soft ext no edema. Objective Data Vital Signs Vital Signs: Vital Signs - 24 hr 02/11/20 20:09 02/11/20 20:34 02/12/20 05:22 Temperature 36.3 C L 37.2 C Pulse Rate 76 76 86 Respiratory Rate 20 20 Blood Pressure 109/49 L 112/58 L Pulse Oximetry 94 94 02/12/20 08:28 02/12/20 09:35 02/12/20 14:00 Temperature 36.6 C Pulse Rate 81 77 Respiratory Rate 20 16 Blood Pressure 122/60 131/66 Pulse Oximetry 97 94 97 Intake/Output In
--- NOTE | 2020-02-12 19:26 | CONS_ITS ---
DATE OF CONSULTATION: 02/12/2020 REASON FOR CONSULTATION: Fever. HISTORY OF PRESENT ILLNESS: A 69-year-old female underwent ruptured abdominal aortic aneurysm on the January 21, manifested by back and abdominal pain. She had repair of the aneurysm, multiple transfusions, splenectomy, and bilateral iliac stents. She had open wound left open. Hospital course otherwise complicated by bloody bowel movements, shock, acute renal failure, and GI hemorrhage. She also had hypocalcemia and she was transferred here for rehab on the or 31 of January. She had a fever on the up to 37.8 and was started on piperacillin and tazobactam as well as vancomycin. Consultation requested yesterday for advice on antibiotics. She has no dyspnea, cough, sputum production, chest pain, dysuria, suprapubic pain, other voiding difficulties, diarrhea, skin rashes or pain at current or past IV sites. PRESENT MEDICATIONS: No immunosuppressants. HABITS: Ex-smoker. No alcohol. ALLERGIES: SEE CHART, SULFA. PAST MEDICAL HISTORY: In addition to above, colon polyps, hyperlipidemia, hypertension, peripheral vascular disease, IBS, and depression. FAMILY HISTORY: Not pertinent to her present illness. SOCIAL HISTORY: She lives in [place], , retired. REVIEW OF SYSTEMS: 14-point review otherwise negative. PHYSICAL EXAMINATION: GENERAL: This is an elderly female, who appears chronically ill, in no acute distress. VITAL SIGNS: T-max as above, since afebrile, pulse 81, respirations 20, oxygen saturation 94% on room air, blood pressure 122/60. SKIN: No generalized rashes. Warm and dry. No ulcerations. NODES: No cervical adenopathy. EENT: Dry mucous membranes. Oropharynx, oral mucosa, otherwise normal. Conjunctivae are normal. Pupils equal, round, reactive. NECK: No masses or thyromegaly. CHEST: No indwelling vascular devices. LUNGS: Diminished breath sounds, otherwise clear to auscultation and percussion. CARDIAC: Regular rate and rhythm. No murmurs or gallops. ABDOMEN: Mildly distended. Normal bowel sounds. Midline surgical scar, which is well approximated and without dehiscence, tenderness, warmth, drainage, erythema. She also has dressed inguinal wounds. EXTREMITIES: No clubbing, cyanosis, edema. Well perfused. RADIOLOGY DATA: I personally reviewed her chest x-ray. She had minimal right infrahilar infiltrate on February 05, which is now resolved. Also has a right pleural effusion. I also reviewed the radiologist's interpretation. LABORATORY DATA: White count is 9.4, hemoglobin 11.1, and platelets of 593. She has a mild hyponatremia. BUN on the was 14, creatinine 1.2, now is 24 and 2.3. Her vancomycin levels elevated. Albumin 2.2. Urinalysis, multiple abnormalities. Urine culture with Enterococcus. Blood cultures, no growth final. Renal ultrasound performed yesterday, medical renal disease suggested. ASSESSMENT: 1. Recent febrile illness with lung infiltrates, possible healthcare-associated pneumonia. Now improving and doing well after 6 days of the above empiric antibiotics. 2. Bacteriuria, no urinary tract infection is present. 3. Acute renal failure could well be due to the combination of piperacillin and vancomycin. Ultrasound suggests medical renal disease and she may be predisposed toward toxicity from the above antibiotic combination. 4. Recent abdominal aortic aneurysm repair, emergent. 5. Tobacco. 6. Atherosclerosis. RECOMMENDATIONS: 1. Due to acute renal failure, I would stop her antibiotics given her clinical improvement. 2. Follow up depending upon the clinical course and her lab test abnormality. 3. Supportive care. Thank you very much for asking me to see her.
[2020-02-12 20:45] VITALS: BP 128/74; PULSE 82; RESP 18; TEMP 36.6; O2SAT 95
[2020-02-12 21:59] VITALS: PULSE 72
[2020-02-12] MEDS: MELATONIN 3 MG TABLET PO (21:59)
[2020-02-12] MEDS: MELATONIN 5 MG TABLET PO (21:59)
[2020-02-12] MEDS: SIMVASTATIN 10 MG TABLET PO (21:59)
[2020-02-13 00:01] LABS: Creatinine Urine 20.9 mg/dL; Total Protein Urine Random 23 mg/dL
[2020-02-13 00:24] LABS: Sodium Urine Random 115 meq/L
[2020-02-13 05:33] VITALS: BP 134/60; PULSE 69; RESP 20; TEMP 36.6; O2SAT 95
[2020-02-13] MEDS: SODIUM CHLORIDE 0.9% IV 1,000 ML 70 ML IV CONT (06:22)
[2020-02-13] MEDS: DIPHENOXYLATE/ATROPINE (*CRX) 2.5 MG TABLET 2 TABLET PO ×4 (06:23→23:47)
[2020-02-13 07:54] LABS: Albumin Level 2.4 g/dL (3.5-5.1); Anion Gap 4 mmol/L (8-16); Blood Urea Nitrogen 20 mg/dL (7-17); Calcium 7.6 mg/dL (8.4-10.2); Carbon Dioxide 27 mmol/L (22-30); Chloride 102 mmol/L (98-107); Estimated CRCL calculation 19 ml/min; Estimated Glomerular Filt Rate 22; Glucose 100 mg/dL (65-105); Phosphorus 4.1 mg/dL (2.5-4.5); Potassium 3.1 mmol/L (3.4-5.0); Sodium 133 mmol/L (137-145)
[2020-02-13 08:00] VITALS: PULSE 69; RESP 20; O2SAT 95
[2020-02-13] MEDS: SACCHAROMYCES BOULARDII 250 MG CAPSULE PO ×3 (08:22→16:56)
[2020-02-13] MEDS: MECLIZINE HCL 25 MG TABLET PO ×3 (08:22→16:56)
[2020-02-13 08:23] VITALS: PULSE 69
[2020-02-13] MEDS: METOPROLOL TARTRATE 25 MG TABLET PO ×2 (08:23→20:04)
[2020-02-13] MEDS: CLOPIDOGREL BISULFATE 75 MG TABLET PO (08:23)
[2020-02-13] MEDS: FLUTICASONE PROPIONATE 0.05% NA SPR 16 GM BTL (*BKC) 2 SPRAY NASAL (08:23)
[2020-02-13] MEDS: MICONAZOLE NITRATE 2% CREAM 30 GM TUBE 1 APPLIC TOPICAL ×2 (08:23→20:06)
[2020-02-13] MEDS: ESCITALOPRAM OXALATE 10 MG TABLET PO (08:23)
[2020-02-13] MEDS: POTASSIUM CHLORIDE 20 MEQ PACKET (FOR LIQUID) PO (08:23)
--- NOTE | 2020-02-13 12:25 | PM.IMPN ---
Progress Note: A&P Assessment and Plan (1) UTI (urinary tract infection): Qualifiers: Urinary tract infection type: site unspecified Hematuria presence: without hematuria Qualified Code(s): N39.0 - Urinary tract infection, site not specified Code(s): N39.0 - Urinary tract infection, site not specified Status: Resolved Assessment and Plan: Culture with entercoccus Stop vancomycin (2) Pneumonia: Qualifiers: Pneumonia type: due to unspecified organism Laterality: unspecified laterality Lung location: unspecified part of lung Qualified Code(s): J18.9 - Pneumonia, unspecified organism Code(s): J18.9 - Pneumonia, unspecified organism Status: Resolved Assessment and Plan: Continue Vanc and Zosyn Pt is on RA CXR stable with bilat LL infiltrates vs atelectasis Rpt Cxr better stop iv zosyn (3) Abdominal aortic aneurysm, ruptured: Code(s): I71.3 - Abdominal aortic aneurysm, ruptured Status: Acute Assessment and Plan: Pt in rehab. Pt wearing her abdominal binder more, continue PT/OT [place] need removal. (4) Hypertension: Qualifiers: Hypertension type: unspecified Qualified Code(s): I10 - Essential (primary) hypertension Code(s): I10 - Essential (primary) hypertension Status: Chronic Assessment and Plan: Controlled on metoprolol (5) Irritable bowel syndrome: Qualifiers: Irritable bowel syndrome type: unspecified Qualified Code(s): K58.9 - Irritable bowel syndrome without diarrhea Code(s): K58.9 - Irritable bowel syndrome without diarrhea Status: Chronic Assessment and Plan: on loperamide prn (6) Hyperlipidemia: Qualifiers: Hyperlipidemia type: unspecified Qualified Code(s): E78.5 - Hyperlipidemia, unspecified Code(s): E78.5 - Hyperlipidemia, unspecified Status: Chronic Assessment and Plan: On statin (7) Peripheral arterial disease: Code(s): I73.9 - Peripheral vascular disease, unspecified Status: Acute Assessment and Plan: Pt had arterial dopplers of her legs in hospital. Chronic changes only (8) Acute kidney injury: Code(s): N17.9 - Acute kidney failure, unspecified Status: Acute Assessment and Plan: Continue to watch kidney function and continuehydration (9) Diarrhea: Code(s): R19.7 - Diarrhea, unspecified Status: Acute Assessment and Plan: start probiotics likely secondary to IV ABX Subjective Date/time seen: 02/13/20 12:25 Interval history: Bhakti Joens is a 69 year old female in rehab after repair of ruptured AAA. Consult for abnormal cxr and fever and abnormal urine culture. Pt being treated for HAP and UTI on IV vancomycin and IV zosyn, Pt had cxr which shows- unchanged opacities in the bilateral lower lung zones. Wcc is better, BC is negative. I will consult ID as pt still looks unwell and depressed very concerned to go home on the . Pt looks little better, no cough, not SOB, no dysuria reported. Pt having some diarrhea, looks dry, creat slightly up. Rpt Cxr much better, can stop all IV abx. Continue fluid hydration and kidney function monitoring. Continue rehab care. Thanks you ID Review of Systems Review of Systems: All systems reviewed & are unremarkable except as noted in HPI and below Exam Narrative: Exam Narrative: GENERALLY: Elderly lady very tired thin and frail lady. CHEST: Clear to auscultation. Normal effort. HEART: NL S1/S2, regular, no murmur ABDOMEN: Long vertical line with philip, no pus or drainage, dry and clean EXTREMITIES: No cyanosis, edema, or clubbing NEUROLOGIC: CN intact and symmetric to inspection. MUSCULOSKELETAL: Tone and strength symmetric. PSYCH: Alert. Oriented to person, place, and time. Objective Data Vital Signs Vital Signs: Vital Signs - 24 hr 02/12/20 14:00 02/12/20 20:45 02/12/20 21:59 Temperature 3
--- NOTE | 2020-02-13 13:04 | WPDINFPN2 ---
Progress Note: A&P Assessment and Plan (1) Pneumonia: Qualifiers: Pneumonia type: due to unspecified organism Laterality: unspecified laterality Lung location: unspecified part of lung Qualified Code(s): J18.9 - Pneumonia, unspecified organism Code(s): J18.9 - Pneumonia, unspecified organism Status: Resolved Assessment and Plan: 1. Recent fever, lung source RLL. No resp compromise and no further fever 2. Renal insufficiency REC Off antibiotics (6 days) and doing well. Ok discharge, no oral therapy needed, call if other Qs Subjective Date/time seen: 02/13/20 13:04 Interval history: eating well, no dyspnea, no cough, no sputum, philip remain in place and I told her that her surgeon is the best person to advise on when to remove Exam Narrative: Exam Narrative: afebrile Const: General: no acute distress Other: she looks great Eyes: General: appearance normal, both eyes and all related structures Resp: Effort & Inspection: normal respiratory effort Auscultation: clear to auscultation bilaterally Cardio: Rate: regular rate Rhythm: regular rhythm Heart sounds: Murmur heart sound present GI: Inspection: non-distended GI Palp: Yes Soft to palpation and No Tenderness to palpation present (GI) Skin: General skin exam: normal color and no rashes or lesions noted Objective Data Vital Signs Vital Signs: Vital Signs - 24 hr 02/12/20 14:00 02/12/20 20:45 02/12/20 21:59 Temperature 36.6 C 36.6 C Pulse Rate 77 82 72 Respiratory Rate 16 18 Blood Pressure 131/66 128/74 Pulse Oximetry 97 95 02/13/20 05:33 02/13/20 08:00 02/13/20 08:23 Temperature 36.6 C Pulse Rate 69 69 69 Respiratory Rate 20 20 Blood Pressure 134/60 Pulse Oximetry 95 95 Intake/Output Intake/Output: Intake & Output 02/10/20 02/11/20 02/12/20 02/13/20 23:59 23:59 23:59 23:59 Intake Total 780 510 640 2506 Output Total 525 400 Balance 780 200 98 662 Meds/Results Medications: Active Medications Generic Name Dose Route Start Last Admin Trade Name Freq PRN Reason Stop Dose Admin Acetaminophen 1,000 mg 01/31/20 16:47 02/09/20 01:50 Acetaminophen 500 Mg Tablet PO 1,000 mg Q6H PRN Administration Pain (Scale Score 4-6) Clopidogrel Bisulfate 75 mg 02/01/20 09:00 02/13/20 08:23 Clopidogrel Bisulfate 75 Mg Tablet PO 75 mg DAILY AMOR Administration Diphenoxylate HCl/Atropine 2 tablet 02/10/20 18:00 02/13/20 06:23 Diphenoxylate/Atropine (*Crx) 2.5 Mg Tablet PO 2 tablet Q6HR AMOR Administration Escitalopram Oxalate 10 mg 02/01/20 09:00 02/13/20 08:23 Escitalopram Oxalate 10 Mg Tablet PO 10 mg DAILY AMOR Administration Fluticasone Propionate 2 spray 02/01/20 09:00 02/13/20 08:23 Fluticasone Propionate 0.05% Na Spr 16 Gm Btl (*Bkc) NASAL 2 spray DAILY AMOR Administration Sodium Chloride 1,000 mls @ 70 mls/hr 02/12/20 13:55 02/13/20 06:22 Normal Saline Iv IV CONT 70 mls/hr .[id number] AMOR Administration Meclizine HCl 25 mg 02/01/20 17:00 02/13/20 08:22 Meclizine Hcl 25 Mg Tablet PO 25 mg TID AMOR Administration Melatonin 5 mg 01/31/20 21:00 02/12/20 21:59 Melatonin 5 Mg Tablet PO 5 mg HS AMOR Administration Melatonin 3 mg 01/31/20 21:00 02/12/20 21:59 Melatonin 3 Mg Tablet PO 3 mg HS AMOR Administration Metoprolol Tartrate 25 mg 01/31/20 21:00 02/13/20 08:23 Metoprolol Tartrate 25 Mg Tablet PO 25 mg Q12HR AMOR Administration Miconazole Nitrate 1 applic 02/08/20 21:00 02/13/20 08:23 Miconazole Nitrate 2% Cream 30 Gm Tube TOPICAL 1 applic Q12HR AMOR Administration Potassium Chloride 40 meq 02/14/20 09:00 Potassium Chloride 20 Meq Packet (For Liquid) PO DAILY AMOR Saccharomyces Boulardii 250 mg 02/08/20 13:00 02/13/20 08:22 Saccharomyces Boulardii 250 Mg Capsule PO 250 mg TID AMOR Administration Simvastatin 10 mg 01/31/20 21:00 02/12/20 21:59 Simvastatin 1
[2020-02-13 14:00] VITALS: BP 142/65; PULSE 75; RESP 18; TEMP 36.2; O2SAT 99
--- NOTE | 2020-02-13 15:18 | WPDNEURORHBP ---
Subjective Date/time seen: 02/13/20 15:18 status post abdominal aortic aneurysm rupture and repair in addition to the ongoing history of 1. Depression 2. Diarrhea 3. Pneumonia 4 electrolyte imbalance. Patient has been seen by the box repairer as well as Infectious Disease personnel that is Dr. Brenton avila and has been taken off both the antibiotics. Pneumonia was attributed to unspecified organism, renal nuclear scan is symmetric kidney function, recent lab on 02/09 with WBC 9.4 hemoglobin 11.1 platelets 593 sodium today 133 with potassium 3.1 that was normal yesterday BUN 20 creatinine 2.00 GFR only 22 and also albumin only 2.4 even though she is not receiving vanc but her level has come down to 19.9 from 20.6 that is on February 12, 2020 Review of Systems Review of Systems: All systems reviewed & are unremarkable except as noted in HPI and below Functional Status Ambulation Ability Ability to Ambulate 10 Feet: Contact Guard Ability to Ambulate 50 Feet With 2 Turns: Contact Guard Ambulation Assistive Devices: Walker, Wheeled Exam Const: General: cooperative, comfortable, no acute distress, alert and awake Nutritional Appearance: thin Orientation/consciousness: patient oriented x3 Limitations: other limitations ( postsurgical) HENMT: Head: normocephalic Ears: hearing grossly normal bilaterally General nose exam: Normal external nose present Face and sinus: normal facial exam Mouth: Yes Normal oral and palatal mucosa present Eyes: General: appearance normal, both eyes and all related structures EOM: EOMs intact bilaterally Neck: Neck: no lymphadenopathy Carotids: normal carotid upstroke Resp: Effort & Inspection: able to speak in complete sentences Auscultation: clear to auscultation bilaterally Cardio: Jugular venous distension: no JVD Rate: regular rate Rhythm: regular rhythm GI: Inspection: normal to inspection GI Palp: Yes No hepatosplenomegaly present Auscultation: normal bowel sounds Neuro: General: patient oriented x3 and moves all extremities Cranial nerves: Yes CN's II-XII intact bilaterally Speech: normal speech Motor exam (neuro): 5/5 motor strength present throughout Sensory Exam: normal sensation Deep tendon reflexes (DTR's): Right triceps reflex intensity grade: 1+, Left triceps reflex intensity grade: 1+, Rt Biceps (C5, C6): 1+, Left biceps reflex intensity grade: 1+, Right brachioradialis reflex intensity grade: 1+, Left brachioradialis reflex intensity grade: 1+, Right patellar reflex intensity grade: 1+, Left patellar reflex intensity grade: 1+, Right ankle reflex intensity grade: 1+ and Left ankle reflex intensity grade: 1+ Plantar Reflex Responses: downgoing: bilateral Psych: Appearance: grossly normal Mental Status: mental status grossly normal Speech and movement: Clear speech present Affect: Animated affect present Attitude: cooperative Thought content: Yes Normal thought content present Insight: Fair insight present (Psych) Judgement: Fair judgement present (Psych) Objective Data Vital Signs Vital Signs: Vital Signs - 24 hr 02/12/20 20:45 02/12/20 21:59 02/13/20 05:33 Temperature 36.6 C 36.6 C Pulse Rate 82 72 69 Respiratory Rate 18 20 Blood Pressure 128/74 134/60 Pulse Oximetry 95 95 02/13/20 08:00 02/13/20 08:23 02/13/20 14:00 Temperature 36.2 C L Pulse Rate 69 69 75 Respiratory Rate 20 18 Blood Pressure 142/65 H Pulse Oximetry 95 99 Intake/Output Intake/Output: Intake & Output 02/10/20 02/11/20 02/12/20 02/13/20 23:59 23:59 23:59 23:59 Intake Total 780 707 915 8600 Output Total 525 400 Balance 780 200 98 902 Meds/Results Medications: Active Medications Generic Name Dose Route Start Last Admin Trade Name Freq PRN Reason Stop Dose Admin Acetaminophen 1,000 mg 01/31/20 16:47 02/09/20 01:50 Acetaminophen 500 Mg Tablet PO 1,000 mg Q6H PRN Administration Pain (Scale Score 4-6) Clopidogrel Bisulfate 75 mg 02/01/20 09:00 02/13/20 0
--- NOTE | 2020-02-13 17:36 | PM.PNNEP ---
Progress Note: A&P Assessment and Plan (1) Acute kidney injury: Code(s): N17.9 - Acute kidney failure, unspecified Status: Acute Assessment and Plan: Bhakti has acute kidney injury. renal sono neg for acute issues. renal scan shows blood flow to both kidneys. urine electrolytes are non pre renal urine eosinophils are pending pt possibly has dehydration. I/Os show some urine output. intake/output number are positive. creatinine is a bit better. Discussed with Dr Medrano Last night. I agree with continuing IV fluids.. (2) Diarrhea: Code(s): R19.7 - Diarrhea, unspecified Status: Acute Assessment and Plan: The patient has diarrhea. This is better. (3) UTI (urinary tract infection): Qualifiers: Urinary tract infection type: site unspecified Hematuria presence: without hematuria Qualified Code(s): N39.0 - Urinary tract infection, site not specified Code(s): N39.0 - Urinary tract infection, site not specified Status: Resolved Assessment and Plan: She has a positive urine culture. She received 5 days of atbs for this. (4) Pneumonia: Qualifiers: Pneumonia type: due to unspecified organism Laterality: unspecified laterality Lung location: unspecified part of lung Qualified Code(s): J18.9 - Pneumonia, unspecified organism Code(s): J18.9 - Pneumonia, unspecified organism Status: Resolved Assessment and Plan: The patient is on antibiotics. (5) Hypertension: Qualifiers: Hypertension type: unspecified Qualified Code(s): I10 - Essential (primary) hypertension Code(s): I10 - Essential (primary) hypertension Status: Chronic Assessment and Plan: Her blood pressure is better without the amlodipine Goal blood pressure is less than 150 for now. (6) Anorexia: Code(s): R63.0 - Anorexia Status: Acute Assessment and Plan: She says she has that her anorexia seems a little bit better but she is not drinking fluids very well. getting ivfs (7) Peripheral arterial disease: Code(s): I73.9 - Peripheral vascular disease, unspecified Status: Acute Assessment and Plan: The patient had an aneurysm rupture. (8) Abdominal aortic aneurysm, ruptured: Code(s): I71.3 - Abdominal aortic aneurysm, ruptured Status: Acute Assessment and Plan: Status post surgery (9) Hyperlipidemia: Qualifiers: Hyperlipidemia type: unspecified Qualified Code(s): E78.5 - Hyperlipidemia, unspecified Code(s): E78.5 - Hyperlipidemia, unspecified Status: Chronic Assessment and Plan: She is on simvastatin. Subjective Date/time seen: 02/13/20 17:36 Interval history: patient is feeling better. eating a little better but not very much. diarrhea is better. No more dizziness Exam Narrative: Exam Narrative: WDWN in NAD skin no rash head ncat lungs clear bilaterally cor reg no rub or gallop abd BS+ nontender and soft ext no edema. Objective Data Vital Signs Vital Signs: Vital Signs - 24 hr 02/12/20 20:45 02/12/20 21:59 02/13/20 05:33 Temperature 36.6 C 36.6 C Pulse Rate 82 72 69 Respiratory Rate 18 20 Blood Pressure 128/74 134/60 Pulse Oximetry 95 95 02/13/20 08:00 02/13/20 08:23 02/13/20 14:00 Temperature 36.2 C L Pulse Rate 69 69 75 Respiratory Rate 20 18 Blood Pressure 142/65 H Pulse Oximetry 95 99 Intake/Output Intake/Output: Intake & Output 02/10/20 02/11/20 02/12/20 02/13/20 23:59 23:59 23:59 23:59 Intake Total 780 447 705 6903 Output Total 525 400 Balance 780 715 04 8318 Meds/Results Medications: Active Medications Generic Name Dose Route Start Last Admin Trade Name Freq PRN Reason Stop Dose Admin Acetaminophen 1,000 mg 01/31/20 16:47 02/09/20 01:50 Acetaminophen 500 Mg Tablet PO 1,000 mg Q6H PRN Administration Pain (Scale Sco
[2020-02-13 20:04] VITALS: PULSE 77
[2020-02-13] MEDS: MELATONIN 3 MG TABLET PO (20:04)
[2020-02-13] MEDS: MELATONIN 5 MG TABLET PO (20:04)
[2020-02-13] MEDS: SIMVASTATIN 10 MG TABLET PO (20:04)
[2020-02-13 20:35] VITALS: BP 131/70; PULSE 77; RESP 20; TEMP 36.4; O2SAT 95
[2020-02-14] VITALS: BP 140/66; PULSE 72; RESP 20; TEMP 36.6; O2SAT 100
[2020-02-14] MEDS: SODIUM CHLORIDE 0.9% IV 1,000 ML 70 ML IV CONT (02:57)
[2020-02-14] MEDS: DIPHENOXYLATE/ATROPINE (*CRX) 2.5 MG TABLET 2 TABLET PO ×4 (05:37→23:52)
[2020-02-14 05:58] VITALS: BP 131/70; PULSE 77; RESP 20; TEMP 36.4; O2SAT 95
[2020-02-14 06:02] LABS: Hematocrit 39.8 % (37.0-47.0); Hemoglobin 13.3 g/dL (12.0-15.0); Mean Corpuscular HGB Conc 33.4 g/dl (32-36); Mean Corpuscular Hemoglobin 29.4 pg (26-34); Mean Corpuscular Volume 87.9 fl (80-100); Mean Platelet Volume 10.6 fl (7.4-10.4); Platelet Count Result 396 k/mm3 (150-375); Red Blood Count 4.53 M/mm3 (4.2-5.4); Red Cell Distribution Width 15.9 % (11.5-14.5); White Blood Count 8.7 K/mm3 (4.5-10.0)
[2020-02-14 06:22] LABS: Albumin Level 2.4 g/dL (3.5-5.1); Anion Gap 5 mmol/L (8-16); Blood Urea Nitrogen 20 mg/dL (7-17); Calcium 7.6 mg/dL (8.4-10.2); Carbon Dioxide 26 mmol/L (22-30); Chloride 102 mmol/L (98-107); Estimated CRCL calculation 22 ml/min; Estimated Glomerular Filt Rate 26; Glucose 92 mg/dL (65-105); Phosphorus 4.1 mg/dL (2.5-4.5); Potassium 3.4 mmol/L (3.4-5.0); Sodium 133 mmol/L (137-145)
[2020-02-14 08:49] LABS: Anion Gap 7 mmol/L (8-16); Blood Urea Nitrogen 19 mg/dL (7-17); Calcium 7.7 mg/dL (8.4-10.2); Carbon Dioxide 26 mmol/L (22-30); Chloride 101 mmol/L (98-107); Estimated CRCL calculation 21 ml/min; Estimated Glomerular Filt Rate 25; Glucose 111 mg/dL (65-105); Potassium 3.5 mmol/L (3.4-5.0); Sodium 134 mmol/L (137-145)
--- NOTE | 2020-02-14 08:54 | PCPTNOTE ---
Leila Hernandez PT completed an inpatient rehab wheelchair evaluation on Bhakti Jones on 02/14/2020. The patient is unable to safely and independently ambulate household distances due to their current impairments. Their diagnosis is Cardiac- Ruptured AAA and their impairments include decreased strength, decreased endurance, decreased balance, and lower extremity weakness. Ms. Jones's weight bearing status is weight-bearing as tolerated on the bilateral lower legs. The patient demonstrates significant functional mobility limitations that impair their ability to participate in mobility-related activities of daily living (MRADLs), including toileting, feeding, dressing, grooming, and bathing in the customary locations in the home. These limitations cannot be sufficiently resolved by the use of an appropriately fitted cane or walker. It is recommended that the patient utilize a wheelchair for functional mobility within the home in order to facilitate optimal safety, independence and participation in all MRADL's and adequately access their home environment on a regular basis. The patient's home provides adequate access between rooms, maneuvering space, and surfaces to accommodate the recommended wheelchair. The use of a wheelchair for functional mobility is strongly recommended and the patient is receptive to using the wheelchair. The use of this wheelchair will significantly improve the patient's ability to participate in MRADLS and the patient will use it on a regular basis in the home. This will facilitate optimal safety, independence, and participation. The patient has demonstrated sufficient physical and mental capabilities needed to safely propel a manual wheelchair that is provided in the home during a typical day. Recommended Wheelchair Frame: STANDARD Recommended Wheelchair Size: 18 x 18 Recommended Wheelchair Cushion:STANDARD Wheelchair Leg Recommendations: Bilateral Swing Away Leg Rests -Anti-tippers are recommended due to patient demonstrating increased risk for falls. They would benefit from anti-tippers with added safety and stabilization. -Adjustable arm height is recommended because the patient requires an arm height that is different than that which is available using non-adjustable arms. The patient spends at least 2 hours per day in the wheelchair. Leila Hernandez PT, DPT ___02/14/20 Evaluating Therapist Date I agree with and certify that the above recommendation is medically necessary. Referring Physician Date
[2020-02-14] MEDS: FLUTICASONE PROPIONATE 0.05% NA SPR 16 GM BTL (*BKC) 2 SPRAY NASAL (09:07)
[2020-02-14] MEDS: CLOPIDOGREL BISULFATE 75 MG TABLET PO (09:07)
[2020-02-14] MEDS: MECLIZINE HCL 25 MG TABLET PO ×3 (09:07→17:33)
[2020-02-14] MEDS: ESCITALOPRAM OXALATE 10 MG TABLET PO (09:07)
[2020-02-14 09:08] VITALS: PULSE 70
[2020-02-14] MEDS: SACCHAROMYCES BOULARDII 250 MG CAPSULE PO ×3 (09:08→17:33)
[2020-02-14] MEDS: METOPROLOL TARTRATE 25 MG TABLET PO ×2 (09:08→20:10)
[2020-02-14] MEDS: POTASSIUM CHLORIDE 20 MEQ PACKET (FOR LIQUID) 40 MEQ PO (09:08)
[2020-02-14] MEDS: MICONAZOLE NITRATE 2% CREAM 30 GM TUBE 1 APPLIC TOPICAL ×2 (09:09→20:11)
[2020-02-14 09:50] VITALS: RESP 20; O2SAT 95
[2020-02-14 10:24] LABS: Sodium Urine Random 111 meq/L
--- NOTE | 2020-02-14 12:09 | PCPTNOTE ---
Patient did not complete full 60 minutes treatment this AM due to not feeling well. Patient refused to continue family training with patient's and demanded to lay down, despite cues from ENVIRONMENTAL PROTECTION INSPECTOR and patient's . Patient's vitals stable and RN informed of patient's complaints. Will attempt to make up additional minutes in PM as appropriate. Elly Dinh, ENVIRONMENTAL PROTECTION INSPECTOR
[2020-02-14 14:50] VITALS: BP 136/59; PULSE 74; RESP 18; TEMP 37.1; O2SAT 100
--- NOTE | 2020-02-14 19:57 | PM.IMPN ---
Progress Note: A&P Assessment and Plan (1) Acute kidney injury: Code(s): N17.9 - Acute kidney failure, unspecified Status: Acute Assessment and Plan: Bhakti has acute kidney injury. likely from dehydration, and compounded by nephrotoxic medications treated with IVFs renal US neg for acute issues. renal scan shows blood flow to both kidneys. urine electrolytes are non pre renal Informatics Consultant following patient I/Os: In 623ml / out 525 ml, In 2242 ml / out 400 ml, In 2301 ml / out 400 ml, creatinine trending: on 02/08/20 creatinine 0.4 and on 02/12/20 creatinine 2.3 and today 02/14/20 creatinine 2.0 creatinine is a bit better. continue to encourage oral hydration Continue to watch kidney function through labs (2) Diarrhea: Code(s): R19.7 - Diarrhea, unspecified Status: Acute Assessment and Plan: per patient family and patient likely her IBS has intermittent diarrhea at home. may have worsened for a short period of time due to antibiotic course. 2 BMs yesterday, 1 BM today, not excessive output or episodes no blood in stool per staff on probiotics (3) UTI (urinary tract infection): Qualifiers: Hematuria presence: without hematuria Urinary tract infection type: site unspecified Qualified Code(s): N39.0 - Urinary tract infection, site not specified Code(s): N39.0 - Urinary tract infection, site not specified Status: Resolved Assessment and Plan: had a positive urine culture. received 5 days of antibiotics for this. Culture with entercoccus on 02/04 completed IV vancomycin ordered follow up urine culture (4) Pneumonia: Qualifiers: Laterality: unspecified laterality Lung location: unspecified part of lung Pneumonia type: due to unspecified organism Qualified Code(s): J18.9 - Pneumonia, unspecified organism Code(s): J18.9 - Pneumonia, unspecified organism Status: Resolved Assessment and Plan: The patient completed antibiotic courses of Vanc and Zosyn she has been on room air, sats 95% CXR on 02/09 with bilat LL infiltrates vs atelectasis ordered follow up CXR for tomorrow. WBC 8.7, no fevers noted. (5) Hypertension: Qualifiers: Hypertension type: unspecified Qualified Code(s): I10 - Essential (primary) hypertension Code(s): I10 - Essential (primary) hypertension Status: Chronic Assessment and Plan: Her blood pressure is better without the amlodipine Goal blood pressure is less than 150 for now. Controlled on metoprolol BP today 131/70 with HR 70-77 (6) Anorexia: Code(s): R63.0 - Anorexia Status: Acute Assessment and Plan: She says she has that her anorexia seems a little bit better but she is not drinking fluids very well. Received IVFs. conitnue to encourage better oral intake consider dietary supplements (7) Peripheral arterial disease: Code(s): I73.9 - Peripheral vascular disease, unspecified Status: Acute Assessment and Plan: The patient had an aneurysm rupture with surgical repair Pt had arterial dopplers of her legs in hospital. Chronic changes only Pedal pulses palpable and present today., BLE warm and pink (8) Abdominal aortic aneurysm, ruptured: Code(s): I71.3 - Abdominal aortic aneurysm, ruptured Status: Acute Assessment and Plan: now Status post surgery Pt in rehab, TRC. Pt wearing her abdominal binder today, continue PT/OT [place] will need removed per Surgeons F/U visit and F/U evaluation (9) Hyperlipidemia: Qualifiers: Hyperlipidemia type: unspecified Qualified Code(s): E78.5 - Hyperlipidemia, unspecified Code(s): E78.5 - Hyperlipidemia, unspecified Status: Chronic Assessment and Plan: continue on simvastatin. no chest pain (10) Irritable bowel syndrome: Qualifiers: Irritable bowel syndrome type: unspecified Qualified Code(s): K58.9 - Irritable joey
[2020-02-14 20:10] VITALS: PULSE 78
[2020-02-14] MEDS: MELATONIN 3 MG TABLET PO (20:10)
[2020-02-14] MEDS: SIMVASTATIN 10 MG TABLET PO (20:10)
[2020-02-14] MEDS: MELATONIN 5 MG TABLET PO (20:10)
[2020-02-15 05:05] LABS: Basophils Absolute Auto 0.1 K/mm3 (0.0-0.1); Basophils Percent Auto 0.7 % (0.2-1.2); Eosinophils Absolute Auto 0.1 K/mm3 (0-0.3); Eosinophils Percent Auto 1.4 % (0-4.4); Hematocrit 37.9 % (37.0-47.0); Hemoglobin 12.6 g/dL (12.0-15.0); Immature Granulocyte Absolute 0.26 K/mm3 (0.00-0.031); Immature Granulocyte Percent A 3.1 % (0-0.5); Lymphocytes Absolute Auto 1.65 K/mm3 (0.9-3.2); Lymphocytes Percent Auto 19.8 % (18.3-44.2); Mean Corpuscular HGB Conc 33.2 g/dl (32-36); Mean Corpuscular Volume 87.1 fl (80-100); Mean Platelet Volume 10.4 fl (7.4-10.4); Monocytes Absolute Auto 0.2 K/mm3 (0.1-0.6); Monocytes Percent Auto 2.9 % (2.6-8.5); Neutrophils Percent Auto 72.1 % (45.5-73.1); Nucleated Red Blood Cells Perc 0.2 % (0.0-0.2); Platelet Count Result 339 k/mm3 (150-375); Red Blood Count 4.35 M/mm3 (4.2-5.4); Red Cell Distribution Width 15.7 % (11.5-14.5); White Blood Count 8.3 K/mm3 (4.5-10.0)
[2020-02-15 05:28] LABS: Anion Gap 5 mmol/L (8-16); Blood Urea Nitrogen 18 mg/dL (7-17); Calcium 7.4 mg/dL (8.4-10.2); Carbon Dioxide 25 mmol/L (22-30); Chloride 100 mmol/L (98-107); Estimated CRCL calculation 25 ml/min; Estimated Glomerular Filt Rate 30; Glucose 104 mg/dL (65-105); Potassium 3.7 mmol/L (3.4-5.0); Sodium 130 mmol/L (137-145)
[2020-02-15] MEDS: DIPHENOXYLATE/ATROPINE (*CRX) 2.5 MG TABLET 2 TABLET PO ×3 (05:33→20:20)
[2020-02-15 05:54] VITALS: BP 130/81; PULSE 75; RESP 20; TEMP 36.6; O2SAT 97
[2020-02-15 05:57] LABS: Anisocytosis 1+ (NORMAL); Platelet Estimate Adequate (Adequate); Target Cells 1+ (NORMAL)
[2020-02-15 08:00] VITALS: PULSE 75; RESP 20; O2SAT 97
[2020-02-15] MEDS: MECLIZINE HCL 25 MG TABLET PO ×3 (08:41→17:18)
[2020-02-15] MEDS: POTASSIUM CHLORIDE 20 MEQ PACKET (FOR LIQUID) 40 MEQ PO (08:41)
[2020-02-15] MEDS: SACCHAROMYCES BOULARDII 250 MG CAPSULE PO ×3 (08:42→17:18)
[2020-02-15] MEDS: FLUTICASONE PROPIONATE 0.05% NA SPR 16 GM BTL (*BKC) 2 SPRAY NASAL (08:42)
[2020-02-15] MEDS: ESCITALOPRAM OXALATE 10 MG TABLET PO (08:42)
[2020-02-15] MEDS: CLOPIDOGREL BISULFATE 75 MG TABLET PO (08:42)
[2020-02-15] MEDS: MICONAZOLE NITRATE 2% CREAM 30 GM TUBE 1 APPLIC TOPICAL ×2 (10:04→20:24)
--- NOTE | 2020-02-15 10:48 | PM.PNNEP ---
Progress Note: A&P Assessment and Plan (1) Acute kidney injury: Code(s): N17.9 - Acute kidney failure, unspecified Status: Acute Assessment and Plan: Bhakti has acute kidney injury. renal sono neg for acute issues. renal scan shows blood flow to both kidneys. urine electrolytes are non pre renal urine eosinophils are pending A KI due to dehydration. Now that diarrhea is better and she is eating, her labs are improving. Will continue without the IV and encourage p.o. intake. (2) Diarrhea: Code(s): R19.7 - Diarrhea, unspecified Status: Acute Assessment and Plan: This is better. (3) UTI (urinary tract infection): Qualifiers: Urinary tract infection type: site unspecified Hematuria presence: without hematuria Qualified Code(s): N39.0 - Urinary tract infection, site not specified Code(s): N39.0 - Urinary tract infection, site not specified Status: Resolved Assessment and Plan: She has a positive urine culture. She received 5 days of atbs for this. (4) Pneumonia: Qualifiers: Pneumonia type: due to unspecified organism Laterality: unspecified laterality Lung location: unspecified part of lung Qualified Code(s): J18.9 - Pneumonia, unspecified organism Code(s): J18.9 - Pneumonia, unspecified organism Status: Resolved Assessment and Plan: The patient is off antibiotics. (5) Hypertension: Qualifiers: Hypertension type: unspecified Qualified Code(s): I10 - Essential (primary) hypertension Code(s): I10 - Essential (primary) hypertension Status: Chronic Assessment and Plan: Her blood pressure is better without the amlodipine Goal blood pressure is less than 150 for now. (6) Anorexia: Code(s): R63.0 - Anorexia Status: Acute Assessment and Plan: Improved (7) Peripheral arterial disease: Code(s): I73.9 - Peripheral vascular disease, unspecified Status: Acute Assessment and Plan: The patient had an aneurysm rupture. (8) Abdominal aortic aneurysm, ruptured: Code(s): I71.3 - Abdominal aortic aneurysm, ruptured Status: Acute Assessment and Plan: Status post surgery (9) Hyperlipidemia: Qualifiers: Hyperlipidemia type: unspecified Qualified Code(s): E78.5 - Hyperlipidemia, unspecified Code(s): E78.5 - Hyperlipidemia, unspecified Status: Chronic Assessment and Plan: She is on simvastatin. Subjective Date/time seen: 02/15/20 10:48 Interval history: patient is feeling better. Eating is much better. Diarrhea is better. Nursing can't get an IV because of poor veins. Review of Systems Cardiovascular: Cardiovascular: Reports no additional cardiovascular complaints Respiratory: Respiratory: Reports no additional respiratory complaints Gastrointestinal: Gastrointestinal: Reports no additional gastrointestinal complaints Genitourinary: Genitourinary: Reports no additional female genitourinary complaints Exam Narrative: Exam Narrative: WDWN in NAD skin no rash head ncat lungs clear bilaterally cor reg no rub or gallop abd BS+ nontender and soft ext no edema. Objective Data Vital Signs Vital Signs: Vital Signs - 24 hr 02/14/20 14:50 02/14/20 20:10 02/15/20 05:54 Temperature 37.1 C 36.6 C Pulse Rate 74 78 75 Respiratory Rate 18 20 Blood Pressure 136/59 L 130/81 Pulse Oximetry 100 97 Intake/Output Intake/Output: Intake & Output 02/12/20 02/13/20 02/14/20 02/15/20 23:59 23:59 23:59 23:59 Intake Total 623 2242 2301 690 Output Total 525 400 400 400 Balance 98 1842 1901 290 Meds/Results Medications: Active Medications Generic Name Dose Route Start Last Admin Trade Name Freq PRN Reason Stop Dose Admin Acetaminophen 1,000 mg 01/31/20 16:47 02/09/20 01:50 Acetaminophen 500 Mg Tablet PO 1,000 mg Q6H PRN Administration Pain (Sca
[2020-02-15 11:46] VITALS: PULSE 75
[2020-02-15] MEDS: METOPROLOL TARTRATE 25 MG TABLET PO ×2 (11:46→20:22)
--- NOTE | 2020-02-15 13:19 | PCDIET ---
Nutrition Follow-Up Complete: Nutrition Diagnosis: Suboptimal oral intake related to decreased appetite, early satiety as evidenced by patient statements, intakes 10-25%. Nutrition Goal: Patient to consume 50% of meals/supplements or greater. Goal in progress. Patient feels she is eating a bit better, but average intake from last review remains around 25% of meals. Patient reports taking supplements, but feels she is getting too many. Recommend decreasing Ensure Clear to BID and sending Frozen Nutritional Treat 1x daily. Agree with regular diet. Last recorded weight is 61 kg. Recommend obtaining new weight. Bowel Motility: Diarrhea reportedly improved with last documented BM on 02/13/20. Labs Reviewed: BUN (18), Cr (1.7), Na (130), Rock Ca (8.68) Meds Noted: Lomotil, Lopressor, KCl, Florastor, Zocor Additional Notes: Abdomen and right groin with healing surgical incisions. No documented pressure ulcers. Discussed with patient recommendation to continue oral supplements on discharge. Will continue to monitor with same goal. Nutrition Monitoring and Evaluation: Follow up every 5 days.
--- NOTE | 2020-02-15 13:39 | PM.IMPN ---
Progress Note: A&P Assessment and Plan (1) UTI (urinary tract infection): Qualifiers: Urinary tract infection type: site unspecified Hematuria presence: without hematuria Qualified Code(s): N39.0 - Urinary tract infection, site not specified Code(s): N39.0 - Urinary tract infection, site not specified Status: Resolved (2) Pneumonia: Qualifiers: Pneumonia type: due to unspecified organism Laterality: unspecified laterality Lung location: unspecified part of lung Qualified Code(s): J18.9 - Pneumonia, unspecified organism Code(s): J18.9 - Pneumonia, unspecified organism Status: Resolved Assessment and Plan: (3) Abdominal aortic aneurysm, ruptured: Code(s): I71.3 - Abdominal aortic aneurysm, ruptured Status: Acute Assessment and Plan: Pt in rehab. Pt wearing her abdominal binder more, continue PT/OT [place] need removal laterl. (4) Hypertension: Qualifiers: Hypertension type: unspecified Qualified Code(s): I10 - Essential (primary) hypertension Code(s): I10 - Essential (primary) hypertension Status: Chronic Assessment and Plan: Controlled on metoprolol (5) Irritable bowel syndrome: Qualifiers: Irritable bowel syndrome type: unspecified Qualified Code(s): K58.9 - Irritable bowel syndrome without diarrhea Code(s): K58.9 - Irritable bowel syndrome without diarrhea Status: Chronic Assessment and Plan: on loperamide prn (6) Hyperlipidemia: Qualifiers: Hyperlipidemia type: unspecified Qualified Code(s): E78.5 - Hyperlipidemia, unspecified Code(s): E78.5 - Hyperlipidemia, unspecified Status: Chronic Assessment and Plan: On statin (7) Peripheral arterial disease: Code(s): I73.9 - Peripheral vascular disease, unspecified Status: Acute Assessment and Plan: Pt had arterial dopplers of her legs in hospital. Chronic changes only (8) Acute kidney injury: Code(s): N17.9 - Acute kidney failure, unspecified Status: Acute Assessment and Plan: Continue to watch kidney function and continue hydration, nephrology rounding, creat is 1.7 (9) Diarrhea: Code(s): R19.7 - Diarrhea, unspecified Status: Resolved Assessment and Plan: start probiotics likely secondary to IV ABX. Subjective Date/time seen: 02/15/20 13:39 Interval history: Bhakti Jones is a 69 year old female in rehab after repair of ruptured AAA. Consult for abnormal cxr and fever and abnormal urine culture. Pt being treated for HAP and UTI on IV vancomycin and IV zosyn, Wcc is better, BC is negative. Rpt Cxr is better. CReat is improving. Pt is off Abx. Pt is medically better. Nephrology following kidney function. Rehab team is primary. I will sign iff on the case, as pt is doing better medically. Review of Systems Review of Systems: All systems reviewed & are unremarkable except as noted in HPI and below Exam Narrative: Exam Narrative: GENERALLY: Elderly lady very tired thin and frail lady. CHEST: Clear to auscultation. Normal effort. HEART: NL S1/S2, regular, no murmur ABDOMEN: Long vertical line with philip, no pus or drainage, dry and clean EXTREMITIES: No cyanosis, edema, or clubbing NEUROLOGIC: CN intact and symmetric to inspection. MUSCULOSKELETAL: Tone and strength symmetric. PSYCH: Alert. Oriented to person, place, and time. Objective Data Vital Signs Vital Signs: Vital Signs - 24 hr 02/14/20 14:50 02/14/20 20:10 02/15/20 05:54 Temperature 37.1 C 36.6 C Pulse Rate 74 78 75 Respiratory Rate 18 20 Blood Pressure 136/59 L 130/81 Pulse Oximetry 100 97 02/15/20 11:46 Temperature Pulse Rate 75 Respiratory Rate Blood Pressure Pulse Oximetry Intake/Output Intake/Output: Intake & Output 02/12/20 02/13/20 02/14/20 02/15/20 23:59 23:59 23:59 23:59 Intake Total 623 2242 2301 690 Output T
[2020-02-15 14:00] VITALS: BP 122/39; PULSE 75; RESP 20; TEMP 37.1; O2SAT 97
--- NOTE | 2020-02-15 16:32 | WPDNEURORHBP ---
Subjective Date/time seen: 02/15/20 16:32 Review of Systems Review of Systems: All systems reviewed & are unremarkable except as noted in HPI and below Functional Status Ambulation Ability Ability to Ambulate 10 Feet: Contact Guard Ability to Ambulate 50 Feet With 2 Turns: Contact Guard Ambulation Assistive Devices: Walker, Wheeled Exam Const: General: no acute distress, alert and awake Nutritional Appearance: average body habitus Orientation/consciousness: patient oriented x3 Limitations: no limitations HENMT: Head: normocephalic Ears: hearing grossly normal bilaterally General nose exam: Normal external nose present and No nasal discharge present Face and sinus: normal facial exam Mouth: Yes Normal oral and palatal mucosa present Eyes: General: appearance normal, both eyes and all related structures Neck: Neck: full ROM Resp: Effort & Inspection: normal respiratory effort Auscultation: clear to auscultation bilaterally GI: Inspection: normal to inspection Percussion: Yes normal to percussion Auscultation: normal bowel sounds Skin: General skin exam: no rashes or lesions noted Neuro: General: patient oriented x3, moves all extremities, no meningeal signs and CN's II-XI intact bilaterally Cranial nerves: Yes Equal, round and reactive pupils present, Yes Normal accommodation reflex present, Yes Bilaterally intact EOM present, Yes Nystagmus not present, Yes facial symmetry, Yes Midline tongue present, Yes Normal gag reflex present, Yes Symmetric palate elevation present, Yes Normal hearing present, Yes Ability to bilaterally rotate head present and Yes Ability to bilaterally elevate shoulders present Cognition (Neuro): normal cognition Speech: normal speech Gait exam (Neuro): Normal gait present Motor exam (neuro): 5/5 motor strength present throughout Sensory Exam: normal sensation Deep tendon reflexes (DTR's): Right triceps reflex intensity grade: 1+, Left triceps reflex intensity grade: 1+, Rt Biceps (C5, C6): 1+, Left biceps reflex intensity grade: 1+, Right brachioradialis reflex intensity grade: 1+, Left brachioradialis reflex intensity grade: 1+, Right patellar reflex intensity grade: 1+, Left patellar reflex intensity grade: 1+, Right ankle reflex intensity grade: 1+ and Left ankle reflex intensity grade: 1+ Plantar Reflex Responses: downgoing: bilateral Coordination: [id number] test normal Extrem: General: full ROM Psych: Appearance: grossly normal Speech and movement: Normal speech and movement present Affect: normal affect Attitude: cooperative Thought process: Normal thought process present Thought content: Yes Normal thought content present Judgement: Good judgement present (Psych) Objective Data Vital Signs Vital Signs: Vital Signs - 24 hr 02/14/20 20:10 02/15/20 05:54 02/15/20 08:00 Temperature 36.6 C Pulse Rate 78 75 75 Respiratory Rate 20 20 Blood Pressure 130/81 Pulse Oximetry 97 97 02/15/20 11:46 Temperature Pulse Rate 75 Respiratory Rate Blood Pressure Pulse Oximetry Intake/Output Intake/Output: Intake & Output 02/12/20 02/13/20 02/14/20 02/15/20 23:59 23:59 23:59 23:59 Intake Total 623 2242 2301 690 Output Total 525 400 400 800 Balance 98 1842 1901 -110 Meds/Results Medications: Active Medications Generic Name Dose Route Start Last Admin Trade Name Freq PRN Reason Stop Dose Admin Acetaminophen 1,000 mg 01/31/20 16:47 02/09/20 01:50 Acetaminophen 500 Mg Tablet PO 1,000 mg Q6H PRN Administration Pain (Scale Score 4-6) Clopidogrel Bisulfate 75 mg 02/01/20 09:00 02/15/20 08:42 Clopidogrel Bisulfate 75 Mg Tablet PO 75 mg DAILY AMOR Administration Diphenoxylate HCl/Atropine 2 tablet 02/10/20 18:00 02/15/20 11:46 Diphenoxylate/Atropine (*Crx) 2.5 Mg Tablet PO 2 tablet Q6HR AMOR Administration Escitalopram Oxalate 10 mg 02/01/20 09:00 02/15/20 08:42 Escitalopram Oxalate 10 Mg Tablet PO 10 mg DAILY S
[2020-02-15 20:22] VITALS: PULSE 85
[2020-02-15] MEDS: MELATONIN 5 MG TABLET PO (20:22)
[2020-02-15] MEDS: MELATONIN 3 MG TABLET PO (20:22)
[2020-02-15] MEDS: SIMVASTATIN 10 MG TABLET PO (20:23)
[2020-02-15 22:00] VITALS: BP 114/49; PULSE 85; RESP 16; TEMP 36.9; O2SAT 96
[2020-02-16] VITALS (7 sets, daily range): BP systolic 113–140; BP diastolic 58–88; PULSE 70–87; RESP 14–20; TEMP 36.4–36.8; O2SAT 96–98
[2020-02-16] MEDS: DIPHENOXYLATE/ATROPINE (*CRX) 2.5 MG TABLET 2 TABLET PO ×4 (01:03→17:17)
[2020-02-16] MEDS: POTASSIUM CHLORIDE 20 MEQ PACKET (FOR LIQUID) 40 MEQ PO (08:29)
[2020-02-16] MEDS: FLUTICASONE PROPIONATE 0.05% NA SPR 16 GM BTL (*BKC) 2 SPRAY NASAL (08:29)
[2020-02-16] MEDS: METOPROLOL TARTRATE 25 MG TABLET PO ×2 (08:31→21:04)
[2020-02-16] MEDS: MECLIZINE HCL 25 MG TABLET PO ×3 (08:31→17:17)
[2020-02-16] MEDS: ESCITALOPRAM OXALATE 10 MG TABLET PO (08:31)
[2020-02-16] MEDS: CLOPIDOGREL BISULFATE 75 MG TABLET PO (08:31)
[2020-02-16] MEDS: SACCHAROMYCES BOULARDII 250 MG CAPSULE PO ×3 (08:32→17:17)
--- NOTE | 2020-02-16 12:11 | WPDNEURORHBP ---
Subjective Date/time seen: 02/16/20 12:11 69 years old is status post abdominal aortic aneurysmal repair rupture and repair with ongoing diagnosis of depression her diarrhea is subsided had only 1 loose stool remains with temp of 36.4? pulse 76 respirations 14 pulse ox 96% on room air and blood pressure 140/67 most recent lab on 02/14 with WBCs 8.3 hemoglobin 12.6 platelet 330 electrolytes fairly normal creatinine has come down to 1.70 albumin is still low that is 2.4 nephrology notes reviewed patient is improving. On today's visit to me it looks better Review of Systems Review of Systems: All systems reviewed & are unremarkable except as noted in HPI and below Functional Status Ambulation Ability Ability to Ambulate 10 Feet: Contact Guard Ability to Ambulate 50 Feet With 2 Turns: Contact Guard Ambulation Assistive Devices: Walker, Wheeled Exam Const: General: cooperative, comfortable, alert and awake Nutritional Appearance: average body habitus Orientation/consciousness: patient oriented x3 HENMT: Ears: hearing grossly normal bilaterally General nose exam: No nasal discharge present Face and sinus: normal facial exam Mouth: Yes Normal oral and palatal mucosa present Eyes: General: appearance normal, both eyes and all related structures Neck: Neck: full ROM Resp: Effort & Inspection: normal respiratory effort Auscultation: clear to auscultation bilaterally Cardio: Jugular venous distension: no JVD Palpation: thrill GI: Auscultation: normal bowel sounds Other: wound completely clean philip are intact : General: Yes bladder normal to inspection Skin: General skin exam: no rashes or lesions noted Neuro: General: patient oriented x3 and moves all extremities Cranial nerves: Yes CN's II-XII intact bilaterally Cognition (Neuro): normal cognition Coordination: [id number] test normal Extrem: General: full ROM and capillary refill normal Psych: Appearance: grossly normal Speech and movement: Normal speech and movement present Affect: normal affect Attitude: cooperative Thought process: Normal thought process present Thought content: Yes Normal thought content present Insight: Good insight present (Psych) Judgement: Good judgement present (Psych) Objective Data Vital Signs Vital Signs: Vital Signs - 24 hr 02/15/20 14:00 02/15/20 20:22 02/15/20 22:00 Temperature 37.1 C 36.9 C Pulse Rate 75 85 85 Respiratory Rate 20 16 Blood Pressure 122/39 L 114/49 L Pulse Oximetry 97 96 02/16/20 06:00 02/16/20 08:31 Temperature 36.4 C L Pulse Rate 76 76 Respiratory Rate 14 Blood Pressure 140/67 Pulse Oximetry 96 Intake/Output Intake/Output: Intake & Output 02/13/20 02/14/20 02/15/20 02/16/20 23:59 23:59 23:59 23:59 Intake Total 2242 2301 1170 240 Output Total 400 400 800 Balance 1842 1901 370 240 Meds/Results Medications: Active Medications Generic Name Dose Route Start Last Admin Trade Name Freq PRN Reason Stop Dose Admin Acetaminophen 1,000 mg 01/31/20 16:47 02/09/20 01:50 Acetaminophen 500 Mg Tablet PO 1,000 mg Q6H PRN Administration Pain (Scale Score 4-6) Clopidogrel Bisulfate 75 mg 02/01/20 09:00 02/16/20 08:31 Clopidogrel Bisulfate 75 Mg Tablet PO 75 mg DAILY AMOR Administration Diphenoxylate HCl/Atropine 2 tablet 02/10/20 18:00 02/16/20 12:08 Diphenoxylate/Atropine (*Crx) 2.5 Mg Tablet PO 2 tablet Q6HR AMOR Administration Escitalopram Oxalate 10 mg 02/01/20 09:00 02/16/20 08:31 Escitalopram Oxalate 10 Mg Tablet PO 10 mg DAILY AMOR Administration Fluticasone Propionate 2 spray 02/01/20 09:00 02/16/20 08:29 Fluticasone Propionate 0.05% Na Spr 16 Gm Btl (*Bkc) NASAL 2 spray DAILY AMOR Administration Meclizine HCl 25 mg 02/01/20 17:00 02/16/20 08:31 Meclizine Hcl 25 Mg Tablet PO 25 mg TID AMOR Administration Melatonin 5 mg 01/31/20 21:00 02/15/20 20:22 Melatonin 5 Mg Tablet PO 5 mg HS AMOR Ad
[2020-02-16] MEDS: MICONAZOLE NITRATE 2% CREAM 30 GM TUBE 1 APPLIC TOPICAL ×2 (13:06→21:09)
[2020-02-16] MEDS: MELATONIN 5 MG TABLET PO (21:04)
[2020-02-16] MEDS: MELATONIN 3 MG TABLET PO (21:09)
[2020-02-16] MEDS: SIMVASTATIN 10 MG TABLET PO (21:09)
[2020-02-17] MEDS: DIPHENOXYLATE/ATROPINE (*CRX) 2.5 MG TABLET 2 TABLET PO ×4 (00:59→17:30)
[2020-02-17 04:26] VITALS: BP 123/68; PULSE 68; RESP 18; TEMP 36.4; O2SAT 96
[2020-02-17 05:46] LABS: Albumin Level 2.4 g/dL (3.5-5.1); Anion Gap 4 mmol/L (8-16); Blood Urea Nitrogen 18 mg/dL (7-17); Calcium 7.7 mg/dL (8.4-10.2); Carbon Dioxide 29 mmol/L (22-30); Chloride 98 mmol/L (98-107); Estimated CRCL calculation 23 ml/min; Estimated Glomerular Filt Rate 28; Glucose 107 mg/dL (65-105); Phosphorus 3.9 mg/dL (2.5-4.5); Potassium 4.2 mmol/L (3.4-5.0); Sodium 131 mmol/L (137-145)
[2020-02-17] MEDS: ESCITALOPRAM OXALATE 10 MG TABLET PO (08:29)
[2020-02-17] MEDS: FLUTICASONE PROPIONATE 0.05% NA SPR 16 GM BTL (*BKC) 2 SPRAY NASAL (08:29)
[2020-02-17] MEDS: MECLIZINE HCL 25 MG TABLET PO ×3 (08:29→17:31)
[2020-02-17] MEDS: CLOPIDOGREL BISULFATE 75 MG TABLET PO (08:29)
[2020-02-17 08:30] VITALS: PULSE 68
[2020-02-17] MEDS: SACCHAROMYCES BOULARDII 250 MG CAPSULE PO ×3 (08:30→17:31)
[2020-02-17] MEDS: METOPROLOL TARTRATE 25 MG TABLET PO ×2 (08:30→21:23)
[2020-02-17] MEDS: POTASSIUM CHLORIDE 20 MEQ PACKET (FOR LIQUID) 40 MEQ PO (08:30)
[2020-02-17] MEDS: MICONAZOLE NITRATE 2% CREAM 30 GM TUBE 1 APPLIC TOPICAL ×2 (08:31→21:40)
[2020-02-17 10:20] VITALS: RESP 18; O2SAT 96
[2020-02-17 14:00] VITALS: BP 129/63; PULSE 79; RESP 20; TEMP 37; O2SAT 97
[2020-02-17 21:20] VITALS: BP 130/68; PULSE 90; RESP 14; TEMP 37.1; O2SAT 94
[2020-02-17] MEDS: MELATONIN 5 MG TABLET PO (21:22)
[2020-02-17 21:23] VITALS: PULSE 90
[2020-02-17] MEDS: MELATONIN 3 MG TABLET PO (21:23)
[2020-02-17] MEDS: SIMVASTATIN 10 MG TABLET PO (21:23)
[2020-02-18 05:20] VITALS: BP 112/68; PULSE 80; RESP 14; TEMP 37.1; O2SAT 97
[2020-02-18] MEDS: DIPHENOXYLATE/ATROPINE (*CRX) 2.5 MG TABLET 2 TABLET PO ×2 (05:21→12:01)
[2020-02-18 05:37] LABS: Estimated CRCL calculation 24 ml/min; Estimated Glomerular Filt Rate 30
[2020-02-18 08:00] VITALS: PULSE 80; RESP 14; O2SAT 97
[2020-02-18] MEDS: POTASSIUM CHLORIDE 20 MEQ PACKET (FOR LIQUID) 40 MEQ PO (08:35)
[2020-02-18] MEDS: SACCHAROMYCES BOULARDII 250 MG CAPSULE PO (08:36)
[2020-02-18] MEDS: ESCITALOPRAM OXALATE 10 MG TABLET PO (08:36)
[2020-02-18 08:37] VITALS: PULSE 80
[2020-02-18] MEDS: FLUTICASONE PROPIONATE 0.05% NA SPR 16 GM BTL (*BKC) 2 SPRAY NASAL (08:37)
[2020-02-18] MEDS: MECLIZINE HCL 25 MG TABLET PO (08:37)
[2020-02-18] MEDS: CLOPIDOGREL BISULFATE 75 MG TABLET PO (08:37)
[2020-02-18] MEDS: METOPROLOL TARTRATE 25 MG TABLET PO (08:37)
--- NOTE | 2020-02-19 14:46 | PC.NURSE ---
call recieved from family that potassium ordered for home was going to cost $245, family would like to know if med could be changed or d/c'd. I spoke with Dr. Mandujano, he reviewed K+ levels and stated to tell the family not to flower picker medication but to make sure patient eats a banana daily, and let PCP know. this was relayed to family.
--- NOTE | 2020-02-21 12:48 | PM.DS ---
DS: Admitting Diagnosis Admitting Diagnosis Admitting Diagnosis: abdominal aortic aneurysmal rupture and repair DS: Summary Hospital Course Hospital Course: improved Time Spent with Patient Time attestation: Total time spent providing and/or coordinating discharge services:ADMISSION FUNCTION: 69 years old right-handed female admitted to the rehab floor with impairment category of cardiac and etiological diagnosis of abdominal aortic aneurysmal rupture and repair in addition to the comorbid condition of 1. Hypertension 2. Hyperlipidemia 4. Irritable bowel syndrome 5. Depression 6. Severe lower back pain she was found to have ruptured abdominal aortic aneurysm on CTA the size of which was [id number] and the significant 2 peritoneal hematoma. At the time of admission here she had no history of COVID exposure or treatment. Her level of function at the time of of admission was as follows Eating [Set Up Only] Oral Care substantial Toileting Hygiene substantial Shower/Bathing substantial Upper Body Dressing substantial Lower Body Dressing substantial Donning/[place] Footwear dependent Rolling Left and Right partial assisted Sit to Lying partial assistance Lying to Sitting partial materials assistant Sit to Stand partial assist Bed to Chair Transfers partial assistance Toilet Transfers partial assist Walking 10' unable Walking 50' with Two Turns unable Walking 150' unable Curb or Step unable 4 Steps unable 12 Steps unable Picking Up Object unable [Wheelchair Mobility 50'] partial assisted [Wheelchair Mobility 150'] patient refused GOALS: Eating [INDEPENDENT] Oral Care [INDEPENDENT] Toileting Hygiene [INDEPENDENT] Shower/Bathing [INDEPENDENT] Upper Body Dressing [INDEPENDENT] Lower Body Dressing [INDEPENDENT] Donning/[place] Footwear [INDEPENDENT] Rolling Left and Right [INDEPENDENT] Sit to Lying [INDEPENDENT] Lying to Sitting [INDEPENDENT] Sit to Stand [INDEPENDENT] Bed to Chair Transfers [INDEPENDENT] Toilet Transfers [INDEPENDENT] Car Transfers [INDEPENDENT] Walking 10' [INDEPENDENT] Walking 50' with Two Turns [INDEPENDENT] Walking 150' [INDEPENDENT] Curb or Step [INDEPENDENT] 4 Steps [INDEPENDENT] 12 Steps [INDEPENDENT] Picking Up Object [INDEPENDENT] [Wheelchair Mobility 50'] [INDEPENDENT] [Wheelchair Mobility 150'] [INDEPENDENT] DISCHARGE PERFORMANCE: Eating set up Oral Care set up Toileting Hygiene supervision Shower/Bathing set up Upper Body Dressing set up Lower Body Dressing supervision Donning/[place] Footwear [INDEPENDENT] Rolling Left and Right [INDEPENDENT] Sit to Lying [INDEPENDENT] Lying to Sitting [INDEPENDENT] Sit to Stand [INDEPENDENT] Bed to Chair Transfers supervision Toilet Transfers supervision Car Transfers supervision Walking 10' supervision Walking 50' with Two Turns supervision Walking 150' supervision Curb or Step supervision 4 Steps supervision 12 Steps unable Picking Up Object supervision [Wheelchair Mobility 50'] supervision [Wheelchair Mobility 150'] supervision during the hospitalization patient was actively involved in a physical therapy and occupational therapy at 1 time she was noted to have low-grade temperature x-ray of the chest was obtained which revealed lower lobes infiltration hospitals consultation was obtained and subsequently she was also seen by infectious disease personal and clinical data assistant because of the electrolyte imbalance. Antibiotics were stopped after 6 days of treatment she remained stable, afebrile and throughout the hospitalization had no fall or injuries and her condition definitely significantly improved, at the time of discharge her neurological examination was nonfocal particularly of the lower extremities. during the meeting thorough discussion was made with a family and her anti depressant medication were continued as such The patient had [no falls]. or injury Discharge Plan Discharge Attending physician on discharge: Brennen Mandujano
== END 2020-02-18 12:45 | disposition home health service (06) | DRG 949 ==
PROVIDERS: Internal Medicine; Internal Medicine Nephrology; Admitting Provider Psychiatry & Neurology Neurology; PCP Nurse Practitioner Family; Visit Provider Family Medicine
DX: Z48.812 Encounter for surgical aftercare following surgery on the circulatory system (principal); I71.3 Abdominal aortic aneurysm, ruptured; N17.9 Acute kidney failure, unspecified; B95.2 Enterococcus as the cause of diseases classified elsewhere; E78.5 Hyperlipidemia, unspecified; E83.51 Hypocalcemia; F32.9 Major depressive disorder, single episode, unspecified; I73.9 Peripheral vascular disease, unspecified; I10 Essential (primary) hypertension; K58.9 Irritable bowel syndrome, unspecified; R63.0 Anorexia; R32 Unspecified urinary incontinence; Z87.891 Personal history of nicotine dependence; Z90.81 Acquired absence of spleen
CPT/HCPCS: 36415; 71045; 71046; 76775; 78707; 80048; 80053; 80069; 80202; 81001; 82550; 82565; 82570; 83735; 84156; 84300; 85025; 85027; 85999; 87040; 87077; 87086; 87088; 87186; 92523; 93925; 96125; 97110; 97116; 97162; 97165; 97530; 97535; 97542; A9270; A9562; J2543; J3370; J7030; J7040